=== PATIENT | male | born 1955 | race Caucasian/White ===

== ENCOUNTER → 2017-04-09 10:16 | Outpatient (CLI) | payer OTHER, SELFPAY ==
[2017-04-09 11:15] LABS: Absolute Neutrophil Count 5.8 X10^3/uL (2.0-7.7); Basophil# 0.04 X10^3/uL; Basophil% 0.5 % (0-1); Eosinophils% 3.6 % (0-5); Hematocrit 46.4 % (40-54); Hemoglobin 15.5 g/dl (13.0-16.5); Lymphocyte % 19.2 % (19-41); Mean Corp Hgb Conc 33.4 g/gl (32-36); Mean Corpuscular Hgb 28.7 pg (27.0-32.0); Mean Corpuscular Volume 85.8 fL (80-94); Mean Platelet Vol. 11.9 fl (6.2-12.0); Monocyte# 0.63 X10^3/uL; Monocyte% 7.6 % (0-10); Neutrophil # 5.75 X10^3/uL (2.7-7.7); Platelet Count 221 K/mm3 (150-450); RBC Distribution Width CV 12.6 % (11.6-14.6); RBC Distribution Width SD 39.3 fl (35.1-43.9); Red Blood Count 5.41 M/mm3 (4.6-6.2); White Blood Count 8.3 K/mm3 (4.4-11.0)
[2017-04-09 11:20] LABS: POSITIVE COUNT NO; POSITIVE DIFFERENTIAL NO; POSITIVE MORPHOLOGY NO
[2017-04-09 11:44] LABS: Anion Gap 8 (5-15); BUN 18 mg/dL (7-18); BUN/Creat Ratio 18.1 RATIO (10-20); Chloride 102 mmol/L (98-107); EST Glomerular Filtration Rate 81 mL/min (>60); Est Glom Filt Rate - Afr Amer 98 mL/min (>60); Glucose 93 mg/dL (70-110); Magnesium 2.1 mg/dL (1.6-2.6); Phosphorus 3.7 mg/dL (2.5-4.9); Sodium Level 140 mmol/L (136-145); Thyroid Stim Hormone (TSH) 1.16 uIU/mL (0.358-3.74)
[2017-04-09 12:14] LABS: Microalbumin:Creatinine Ratio 129.1 mg/g CRE (<30 mg/g CRE)
[2017-04-11 09:46] LABS: PTHIN 35.2 pg/mL (18.4-80.1); Vitamin D,25 Hydroxy 23.8 ng/mL
== END ==
PROVIDERS: Family Provider Specialist; PCP Specialist; Visit Provider Specialist
DX: I10 Essential (primary) hypertension (principal); R80.9 Proteinuria, unspecified; M10.9 Gout, unspecified
CPT/HCPCS: 36415; 80048; 82043; 82306; 82570; 83735; 83970; 84100; 84443; 84550; 85025

== ENCOUNTER → 2017-10-28 08:32 | Outpatient (CLI) | payer OTHER, SELFPAY ==
[2017-10-28 09:40] LABS: Erythrocyte Sedimentation Rate 5 mm/hr (0-20)
[2017-10-28 10:16] LABS: ALB/GLOB Ratio 0.9 RATIO (0.9-2.4); AST(SGOT) 19 U/L (15-37); Alanine Aminotransfer ALT/SGPT 17 U/L (16-61); Albumin, Serum 3.5 g/dL (3.2-5.0); Alkaline Phosphatase 70 U/L (45-117); Anion Gap 8 (5-15); BUN 19 mg/dL (7-18); BUN/Creat Ratio 17.6 RATIO (10-20); CRP 7.29 mg/L (0.0-3.0); Calcium,Total 8.4 mg/dL (8.5-10.1); Chloride 104 mmol/L (98-107); Cholesterol 198 mg/dL (200); Creatinine, Serum 1.08 mg/dL (0.70-1.30); EST Glomerular Filtration Rate 74 mL/min (>60); Est Glom Filt Rate - Afr Amer 89 mL/min (>60); Globulin 3.7 g/dL (2.2-4.2); Glucose 89 mg/dL (74-106); High Density Lipoprotein 40 mg/dL; Potassium 3.7 mmol/L (3.5-5.1); Protein, Total 7.2 g/dL (6.4-8.2); Sodium Level 142 mmol/L (136-145); Triglycerides 165 mg/dL; Very Low Density Lipoprotein 33 mg/dL (5-40)
[2017-10-28 10:34] LABS: Microalbumin:Creatinine Ratio 129.3 mg/g CRE (<30 mg/g CRE)
== END ==
PROVIDERS: Family Provider Specialist; PCP Specialist; Visit Provider Specialist
DX: R80.9 Proteinuria, unspecified (principal); E55.9 Vitamin D deficiency, unspecified; I10 Essential (primary) hypertension; I70.90 Unspecified atherosclerosis; R79.82 Elevated C-reactive protein (CRP)
CPT/HCPCS: 36415; 80053; 80061; 82043; 82306; 82570; 85652; 86140

== ENCOUNTER → 2018-03-30 13:26 | Outpatient (CLI) | payer OTHER, SELFPAY ==
[2018-03-30 15:00] LABS: Anion Gap 6 (5-15); BUN 17 mg/dL (7-18); BUN/Creat Ratio 15.9 RATIO (10-20); Calcium,Total 8.7 mg/dL (8.5-10.1); Chloride 102 mmol/L (98-107); Creatinine, Serum 1.07 mg/dL (0.70-1.30); EST Glomerular Filtration Rate 74 mL/min (>60); Est Glom Filt Rate - Afr Amer 90 mL/min (>60); Glucose 86 mg/dL (74-106); Potassium 3.8 mmol/L (3.5-5.1); Sodium Level 139 mmol/L (136-145)
[2018-03-30 15:08] LABS: PTHIN 96.4 pg/mL (18.4-80.1)
--- OUTSIDE RECORDS SUMMARY | 2018-06-04 08:02 | XMS RPT_ITS ---
:1955 Author Organization [facility] Care Team Providers Name Role Phone JEFF SAINZ Attending Unavailable LASSALETTA, JEFF Referring Unavailable LASSALETTA, JEFF Primary Care Unavailable LARRYSALETTA, JEFF Attending Unavailable LASSALETTA, JEFF Referring Unavailable LASSALETTA, JEFF Primary Care Unavailable LASSALETTA, JEFF Attending Unavailable LASSALETTA, JEFF Referring Unavailable LASSALETTA, JEFF Primary Care Unavailable PROBLEMS PROBLEMS No Problem Records FoundPROCEDURES PROCEDURES No Procedure Records FoundRESULTS RESULTS KIDNEY AND BLADDER Observed: 03/30/2018 Status: F Source: [place] 2:06 PM REPOSITORY [facility] Imaging Services [address] [place] [id number] Kidney and Bladder MR#: [id number] Acct: [id number] Name: SEBASTIEN GLOVER Rep #: [id number] : 1955 M 62 From: Mulugeta Angela MD PCP: JEFF SAINZ Status: REG CLI Study: Kidney and Bladder Date of Exam: 03/30/18 Exam# [id number] Ordering Dr: Jeff Sainz STUDY: RENAL ULTRASOUND - COMPLETE REASON FOR EXAM: Male, 62 years old. Proteinuria TECHNIQUE: Ultrasound evaluation of the kidneys was performed with real-time and static rosario-scale imaging. COMPARISON: None. FINDINGS: RIGHT KIDNEY: Normal location of the right kidney, which is normal in size. The right kidney measures 11.3 x 5.8 x 5.4 cm. There is a normal cortex of the right kidney. The renal cortex measures 1.8 cm. There is no right renal mass or cyst. There are no right renal calculi. There is no right hydronephrosis. DISTAL RIGHT URETER: There is non-visualization of the distal right ureter. There is no demonstrated right ureterovesical junction calculus. There is a visualized right ureteral jet. LEFT KIDNEY: Normal location of the left kidney, which is normal in size. The left kidney measures 10.1 x 5.0 x 6.3 cm. There is a normal cortex of the left kidney. The renal cortex measures 2.3 cm. There is no left renal mass or cyst. There are no left renal calculi. There is no left hydronephrosis. DISTAL LEFT URETER: There is non-visualization of the distal left ureter. There is no demonstrated left ureterovesical junction calculus. There is a visualized left ureteral jet. BLADDER: The distended urinary bladder has a volume of 152 ml. There is a normal wall thickness of the distended urinary bladder. There is no demonstrated mass within the urinary bladder. There are no demonstrated bladder calculi. Enlarged prostate gland is seen. Greatest dimension approximately 5.2 cm. US/Kidney and Bladder IMPRESSION: Normal ultrasound of the kidneys and urinary bladder. Enlarged prostate gland. Electronically Signed: Mulugeta Angela MD at 16:28 EST , Service support , CC: JEFF SAINZ Linen Supervisor: Signed BASIC METABOLIC Collected: 03/30/2018 Status: F Source: [place] PROFILE (BMP) 1:58 PM REPOSITORY TYPE CODE TESTS RESULT OUT OF RANGE REFERENCE UNITS LAB L501.0100 74-106 mg/dL Normal GLU 86 Result Comment: Please note revised GLUCOSE reference range effective 2017. LAB L501.1000 7-18 mg/dL Normal BUN 17 LAB L501.1100 0.70-1.30 mg/dL Normal CREAT,SERUM 1.07 Result Comment: The validity of the calculated GFR AND GFRAA in patients over 70 years has not been determined. Clinical correlation is essential. LAB L501.1110 >60 mL/min Normal EST GFR 74 Result Comment: Non- GFR Calc LAB L501.1115 >60 mL/min Normal EST GFR - AA 90 Result Comment: GFR Calc LAB L501.1300 10-20 RATIO Normal BUN/CRE 15.9 LAB L501.2200 8.5-10.1 mg/dL CA Normal 8.7 LAB L501.5300 136-145 mmol/L NA Normal 139 LAB L501.5600 3.5-5.1 mmol/L K Normal 3.8 LAB L501.5900 98-107 mmol/L CL Normal 102 LAB L501.6100 21.0-32.0 mmol/L Normal CO2 31.0 LAB L501.6200 5-15 Normal GAP 6 Performed By: #### L500.2500 #### [facility] [address] [place], [address] PTHIN Collected: 03/30/2018 Status: F Source: [place] 1:58 PM REPOSITORY TYPE CODE TESTS RESULT OUT OF RANGE REFERENCE UNITS LAB L509.1000 18.4-80.1 pg/mL High PTHIN 96.4 Performed By: #### L509.1000 #### [facility] [address] [place], [address] CALCIUM IONIZED Collected: 03/30/2018 Status: F Source: [place] 1:58 PM REPOSITORY TYPE CODE TESTS RESULT OUT OF RANGE REFERENCE UNITS LAB L3100.9600 4.5-5.6 mg/dL Normal IONIZED CA 5.2 Result Comment: Performed at: [facility] [address] [id number] Materials Development Engineer: Darren Murphy PhD, Phone: [phone] Performed By: #### L3100.9600 #### [facility] (refer to report for specific site) refer to report for address and phone number ERYTHROCYTE SED RATE Collected: 10/28/2017 Status: F Source: [place] 8:35 AM REPOSITORY Order Comment: BARELY CAN READ THE ORDER TYPE CODE TESTS RESULT OUT OF RANGE REFERENCE UNITS LAB L102.0000 0-20 mm/hr Normal SED RATE 5 Performed By: #### L101.9900 #### [facility] [place], [address] COMPREHENSIVE METABOLIC Collected: 10/28/2017 Status: F Source: [place] [facility] 8:35 AM REPOSITORY Order Comment: BARELY CAN READ THE ORDER TYPE CODE TESTS RESULT OUT OF RANGE REFERENCE UNITS LAB L501.0100 74-106 mg/dL Normal GLU 89 Result Comment: Please note revised GLUCOSE reference range effective 2017. LAB L501.1000 7-18 mg/dL High BUN 19 LAB L501.1100 0.70-1.30 mg/dL Normal CREAT,SERUM 1.08 Result Comment: The validity of the calculated GFR AND GFRAA in patients over 70 years has not been determined. Clinical correlation is essential. LAB L501.1110 >60 mL/min Normal EST GFR 74 Result Comment: Non- GFR Calc LAB L501.1115 >60 mL/min Normal EST GFR - AA 89 Result Comment: GFR Calc LAB L501.1300 10-20 RATIO Normal BUN/CRE 17.6 LAB L501.1500 6.4-8.2 g/dL T Normal PROT 7.2 LAB L501.1800 3.2-5.0 g/dL Normal ALB 3.5 LAB L501.1950 2.2-4.2 g/dL Normal GLOB 3.7 LAB L501.2000 0.9-2.4 RATIO Normal A/G 0.9 LAB L501.2200 8.5-10.1 mg/dL Low CA 8.4 LAB L501.4100 15-37 U/L Normal AST 19 LAB L501.4305 45-117 U/L Normal ALK P 70 LAB L501.4405 16-61 U/L Normal ALT 17 LAB L501.4600 0.20-1.00 mg/dL T Normal BILI 0.40 LAB L501.5300 136-145 mmol/L NA Normal 142 LAB L501.5600 3.5-5.1 mmol/L K Normal 3.7 LAB L501.5900 98-107 mmol/L CL Normal 104 LAB L501.6100 21.0-32.0 mmol/L Normal CO2 30.0 LAB L501.6200 5-15 Normal GAP 8 Performed By: #### L500.4050, L500.4100, L501.6710 #### [facility] [address] [place], [place], [id number] LIPID PROFILE Collected: 10/28/2017 Status: F Source: [place] 8:35 AM REPOSITORY Order Comment: BARELY CAN READ THE ORDER TYPE CODE TESTS RESULT OUT OF RANGE REFERENCE UNITS LAB L501.4900 200 mg/dL Normal CHOL 198 Result Comment: <200 mg/dL Desirable 200-240 mg/dL Borderline >240 mg/dL High Risk LAB L501.5000 mg/dL Normal TRIG 165 Result Comment: The drugs N-Acetylcysteine and Metamizole may falsely depress this assay. Serum Triglycerides Reference Interval Normal <150 mg/dL Borderline high 150 - 199 mg/dL High 200 - 499 mg/dL Very High > or = 500 mg/dL LAB L501.6400 mg/dL Normal HDL 40 Result Comment: The drugs N-Acetylcysteine and Metamizole may falsely depress this assay. Reference Range HDL <40 mg/dL Low HDL Cholesterol HDL >or= 60 mg/dL High HDL Cholesterol LAB L501.6500 0-130 mg/dL Normal LDL 125 LAB L501.6600 5-40 mg/dL Normal VLDL 33 Performed By: #### L500.4050, L500.4100, L501.6710 #### [facility] [address] [place], [place], [address] CRP Collected: 10/28/2017 Status: F Source: [place] 8:35 AM REPOSITORY Order Comment: BARELY CAN READ THE ORDER TYPE CODE TESTS RESULT OUT OF RANGE REFERENCE UNITS LAB L501.6710 0.0-3.0 mg/L High 7.29 C-REACTIVE PROT Result Comment: C-Reactive Protein (CRP) provides useful information for the diagnosis, therapy and monitoring of inflammatory processes and associated diseases. For the evaluation of Relative Risk for Cardiovascular Disease, a High Sensitivity CRP (HSCRP) should be ordered. Performed By: #### L500.4050, L500.4100, L501.6710 #### [facility] [address] [place], [address] VITAMIN D,25 HYDROXY Collected: 10/28/2017 Status: F Source: [place] 8:35 AM REPOSITORY Order Comment: BARELY CAN READ THE ORDER TYPE CODE TESTS RESULT OUT OF RANGE REFERENCE UNITS LAB L506.1000 29.95-100.01 ng/mL Normal Vitamin D 33.0 25-OH Result Comment: Vitamin D 25(OH) Status Range Deficiency <20 ng/mL (50nmol/L) Insuffciency 20 - 30 ng/mL (50 - 75 nmol/L) Sufficiency 30 - 100 ng/mL (75 - 250 nmol/L) Toxicity >100 ng/mL (>250 nmol/L) Performed By: #### L506.1000 #### [facility] [address] [place], [address] MICROALB:CREAT Collected: 10/28/2017 Status: F Source: [place] RATIO,RANDOM UR 8:35 AM REPOSITORY Order Comment: BARELY CAN READ THE ORDER TYPE CODE TESTS RESULT OUT OF RANGE REFERENCE UNITS LAB L501.1200 NO RANGE EST. mg/dL Normal UR CREAT 205.00 LAB L502.0500 NO RANGE EST. mg/L Normal 265.0 MICROALBUMIN ,UR LAB L502.0600 <30 mg/g CRE mg/g CRE High 129.3 MALB:CREAT Performed By: #### L502.0250 #### [facility] [address] [place], [address] ALLERGIES ALLERGIES DATE TYPE / CODE NAME / CODE REACTION SEVERITY SOURCE 12/04/2016 Miscellaneous BLOOD PRESSURE Nausea Unknown [place] Allergy/[id number]([facility] Repository ENCOUNTERS ENCOUNTERS ADMIT/DISCHARGE ACCOUNT ADMITTING ENCOUNTER LOCATION SOURCE NUMBER CLASS 03/30/2018 [id number] [facility] ing:[place] Repository 03/30/2018 [id number] [facility] ing:LAB Repository 10/28/2017 [id number] Ambulatory [place] 8 [facility] ing:LAB Repository PAYERS PAYERS ENCOUNTER GUARANTOR PAYER SUBSCRIBER SOURCE 03/30/2018 SEBASTIEN [place] Primary SEBASTIEN G [place] Insurance:CARESOURCE COVEYDOB: [address] [address]Oug: (330) Number: Repository [phone] () [id number] Date:[id number] [address] [phone]: 03/30/2018 Secondary NOT GIVENUNK [place] Insurance:SELF PAY [facility] Number: Effective Repository Date:2018-03-30 03/30/2018 SEBASTIEN [place] Primary SEBASTIEN G [place] Insurance:[employer] COVEYDOB: [address] [address]Tdw: (330) Number: Repository [phone] () [id number] Date:[id number] [address] [id number]: 03/30/2018 Secondary NOT GIVENUNK [place] Insurance:SELF PAY [facility] Number: Effective Repository Date:2018-03-30 10/28/2017 SEBASTIEN DOT[place] Primary SEBASTIEN G [place] Insurance:[employer] COVEYDOB: [address] [address]Gyr: (330) Number: Repository [phone] () [id number] Date:[id number] [address] [phone]: 10/28/2017 Secondary NOT GIVENUNK [place] Insurance:SELF PAY [facility] Number: Effective Repository Date:2017-10-28
== END ==
PROVIDERS: Family Provider Specialist; PCP Specialist; Referring Provider Specialist; Visit Provider Specialist
DX: N18.9 Chronic kidney disease, unspecified (principal); R80.9 Proteinuria, unspecified
CPT/HCPCS: 36415; 80048; 82330; 83970

== ENCOUNTER → 2018-03-30 14:03 | Outpatient (CLI) | payer OTHER, SELFPAY ==
[2016-12-04 09:39] VITALS: BMI 25.3
--- NOTE | 2018-03-30 14:06 | US_ITS ---
STUDY: RENAL ULTRASOUND - COMPLETE REASON FOR EXAM: Male, 62 years old. Proteinuria TECHNIQUE: Ultrasound evaluation of the kidneys was performed with real-time and static rosario-scale imaging. COMPARISON: None. FINDINGS: RIGHT KIDNEY: Normal location of the right kidney, which is normal in size. The right kidney measures 11.3 x 5.8 x 5.4 cm. There is a normal cortex of the right kidney. The renal cortex measures 1.8 cm. There is no right renal mass or cyst. There are no right renal calculi. There is no right hydronephrosis. DISTAL RIGHT URETER: There is non-visualization of the distal right ureter. There is no demonstrated right ureterovesical junction calculus. There is a visualized right ureteral jet. LEFT KIDNEY: Normal location of the left kidney, which is normal in size. The left kidney measures 10.1 x 5.0 x 6.3 cm. There is a normal cortex of the left kidney. The renal cortex measures 2.3 cm. There is no left renal mass or cyst. There are no left renal calculi. There is no left hydronephrosis. DISTAL LEFT URETER: There is non-visualization of the distal left ureter. There is no demonstrated left ureterovesical junction calculus. There is a visualized left ureteral jet. BLADDER: The distended urinary bladder has a volume of 152 ml. There is a normal wall thickness of the distended urinary bladder. There is no demonstrated mass within the urinary bladder. There are no demonstrated bladder calculi. Enlarged prostate gland is seen. Greatest dimension approximately 5.2 cm. US/Kidney and Bladder IMPRESSION: Normal ultrasound of the kidneys and urinary bladder. Enlarged prostate gland. Electronically Signed: Mulugeta Angela MD at 16:28 EST , Service support ,
--- OUTSIDE RECORDS SUMMARY | 2018-06-04 09:01 | XMS RPT_ITS ---
[...] AND BLADDER Observed: 03/30/2018 Status: F Source: [place] 2:06 PM [facility] REPOSITORY [facility] Imaging Services [address] [place] [id number] Kidney and Bladder MR#: [id number] Acct: [id number] Name: SEBASTIEN GLOVER Rep #: [id number] : 1955 M 62 From: Mulugeta Angela MD PCP: JEFF SAINZ Status: REG CLI Study: Kidney and Bladder Date of Exam: 03/30/18 Exam# [id number] Ordering Dr: Jeff Sainz STUDY: RENAL ULTRASOUND [...] , Service support , CC: JEFF SAINZ Air Hammer Operator: Signed BASIC METABOLIC Collected: 03/30/2018 Status: F Source: [place] PROFILE (BMP) 1:58 PM [facility] REPOSITORY TYPE CODE TESTS RESULT OUT OF [...] GAP 6 Performed By: #### L500.2500 #### [facility] [address] [place], [address] PTHIN Collected: 03/30/2018 Status: F Source: [place] 1:58 PM [facility] REPOSITORY TYPE CODE TESTS RESULT OUT OF RANGE REFERENCE UNITS LAB L509.1000 18.4-80.1 pg/mL High PTHIN 96.4 Performed By: #### L509.1000 #### [facility] [address] [place], [address] CALCIUM IONIZED Collected: 03/30/2018 Status: F Source: [place] 1:58 PM [facility] REPOSITORY TYPE CODE TESTS RESULT OUT OF RANGE REFERENCE UNITS LAB L3100.9600 4.5-5.6 mg/dL Normal IONIZED CA 5.2 Result Comment: Performed at: [facility] [id number] Strap Machine Operator Automatic: Darren Murphy PhD, Phone: [phone] Performed By: #### L3100.9600 #### [facility] (refer to report for specific site) refer to report for address and phone number ERYTHROCYTE SED RATE Collected: 10/28/2017 Status: F Source: [place] 8:35 AM [facility] REPOSITORY Order Comment: BARELY CAN READ THE ORDER TYPE CODE TESTS RESULT OUT OF RANGE REFERENCE UNITS LAB L102.0000 0-20 mm/hr Normal SED RATE 5 Performed By: #### L101.9900 #### [facility] [place], [address] COMPREHENSIVE METABOLIC Collected: 10/28/2017 Status: F Source: [place] [facility] 8:35 AM [facility] REPOSITORY Order Comment: BARELY CAN READ THE [...] Performed By: #### L500.4050, L500.4100, L501.6710 #### [facility] [address] [place], [place], [id number] LIPID PROFILE Collected: 10/28/2017 Status: F Source: [place] 8:35 AM [facility] REPOSITORY Order Comment: BARELY CAN READ THE [...] Performed By: #### L500.4050, L500.4100, L501.6710 #### [facility] [address] [place], [place], [address] CRP Collected: 10/28/2017 Status: F Source: [place] 8:35 AM [facility] REPOSITORY Order Comment: BARELY CAN READ THE [...] Performed By: #### L500.4050, L500.4100, L501.6710 #### [facility] [address] [place], [address] VITAMIN D,25 HYDROXY Collected: 10/28/2017 Status: F Source: [place] 8:35 AM [facility] REPOSITORY Order Comment: BARELY CAN READ THE [...] (>250 nmol/L) Performed By: #### L506.1000 #### [facility] [address] [place], [address] MICROALB:CREAT Collected: 10/28/2017 Status: F Source: [place] RATIO,RANDOM UR 8:35 AM [facility] REPOSITORY Order Comment: BARELY CAN READ THE ORDER TYPE CODE TESTS RESULT OUT OF RANGE REFERENCE UNITS LAB L501.1200 NO RANGE EST. mg/dL Normal UR CREAT 205.00 LAB L502.0500 NO RANGE EST. mg/L Normal 265.0 MICROALBUMIN ,UR LAB L502.0600 <30 mg/g CRE mg/g CRE High 129.3 MALB:CREAT Performed By: #### L502.0250 #### [facility] [address] [place], [address] ALLERGIES ALLERGIES DATE TYPE / CODE NAME / CODE REACTION SEVERITY SOURCE 12/04/2016 Miscellaneous BLOOD PRESSURE Nausea Unknown [place] Allergy/[id number]([facility] Repository ENCOUNTERS ENCOUNTERS ADMIT/DISCHARGE ACCOUNT ADMITTING ENCOUNTER LOCATION SOURCE NUMBER CLASS 03/30/2018 [id number] [facility] ing:US Repository 03/30/2018 [id number] [facility] ing:LAB Repository 10/28/2017 [id number] Ambulatory [place] 8 [facility] ing:LAB Repository PAYERS PAYERS ENCOUNTER GUARANTOR PAYER SUBSCRIBER SOURCE 03/30/2018 SEBASTIEN DOTSON Primary SEBASTIEN G [place] Insurance:CARESOURCE COVEYDOB: [address] [address]Evb: (330) Number: Repository [phone] () [id number] Date:[id number] [address] [address]VV: 03/30/2018 Secondary NOT GIVENUNK [place] Insurance:SELF PAY [facility] Number: Effective Repository Date:2018-03-30 03/30/2018 SEBASTIEN DOTSON Primary SEBASTIEN G [place] Insurance:CAR[employer]OURCE COVEYDOB: [address] [address]Gyj: (330) Number: Repository [phone] () [id number] Date:[id number] [address] [address]ZY: 03/30/2018 Secondary NOT GIVENUNK [place] Insurance:SELF PAY [facility] Number: Effective Repository Date:2018-03-30 10/28/2017 SEBASTIEN DOTSON Primary SEBASTIEN G [place] Insurance:CAR[employer]OURCE COVEYDOB: [address] [address]Ivg: (330) Number: Repository [phone] () [id number] Date:2904-10-[address]ZX [address] [address]UP: 10/28/2017 Secondary NOT GIVENUNK [place] Insurance:SELF PAY [facility] Number: Effective Repository Date:2017-10-28
== END ==
PROVIDERS: Family Provider Specialist; PCP Specialist; Referring Provider Specialist; Visit Provider Specialist
DX: R80.9 Proteinuria, unspecified (principal)
CPT/HCPCS: 76770

== ENCOUNTER 2018-04-14 20:03 | Emergency (ER) | payer OTHER, SELFPAY ==
[2018-04-14 20:04] VITALS: BP 160/106; PULSE 90; RESP 20; TEMP 36.1; O2SAT 94; BMI 28.8
--- NOTE | 2018-04-14 20:32 | EKG12_ITS ---
Test Reason : SHORTNESS OF BREATH Blood Pressure : / mmHG Vent. Rate : 073 BPM Atrial Rate : 073 BPM P-R Int : 158 ms QRS Dur : 090 ms QT Int : 372 ms P-R-T Axes : 089 090 106 degrees QTc Int : 409 ms Normal sinus rhythm Rightward axis Nonspecific ST abnormality Abnormal ECG Confirmed by ERA MIRANDA, TANA ([id number]), restaurant expeditor ALICE DIANE ([id number]) on 04/19/2018 1:28:14 PM Referred By: Paula Sainz Confirmed By:TANA GIRARD MD
[2018-04-14] MEDS: Ipratropium/Albuterol Sulfate 3 ML AMPUL.NEB INHALATION (20:49)
[2018-04-14 20:51] VITALS: PULSE 89; RESP 24
[2018-04-14 20:51] LABS: Absolute Lymphocyte Count 2.68 X10^3/ul (0.83-4.51); Absolute Neutrophil Count 4.6 X10^3/uL (2.0-7.7); Basophil# 0.03 X10^3/uL; Basophil% 0.4 % (0-1); Eosinophils% 4.7 % (0-5); Hematocrit 49.6 % (40-54); Hemoglobin 16.2 g/dl (13.0-16.5); Lymphocyte # 2.68 X10^3/ul (4.0); Lymphocyte % 31.3 % (19-41); Mean Corp Hgb Conc 32.7 g/gl (32-36); Mean Corpuscular Hgb 28.5 pg (27.0-32.0); Mean Corpuscular Volume 87.2 fL (80-94); Mean Platelet Vol. 10.9 fl (6.2-12.0); Monocyte# 0.79 X10^3/uL; Monocyte% 9.2 % (0-10); Neutrophil # 4.63 X10^3/uL (2.7-7.7); Platelet Count 160 K/mm3 (150-450); RBC Distribution Width CV 13.3 % (11.6-14.6); RBC Distribution Width SD 42.1 fl (35.1-43.9); Red Blood Count 5.69 M/mm3 (4.6-6.2); White Blood Count 8.6 K/mm3 (4.4-11.0)
[2018-04-14 20:52] LABS: POSITIVE COUNT NO; POSITIVE DIFFERENTIAL NO; POSITIVE MORPHOLOGY NO
[2018-04-14] MEDS: MethylPREDNISolone 125 MG/2 ML Vial 60 MG IV (20:56)
[2018-04-14] MEDS: Azithromycin 250 MG Tablet 500 MG PO (20:56)
[2018-04-14 20:57] VITALS: BP 141/104; PULSE 86; RESP 14; O2SAT 91; O2SAT 96
[2018-04-14 21:09] LABS: Anion Gap 8 (5-15); BUN 23 mg/dL (7-18); BUN/Creat Ratio 19.8 RATIO (10-20); Calcium,Total 8.7 mg/dL (8.5-10.1); Chloride 100 mmol/L (98-107); Creatinine, Serum 1.16 mg/dL (0.70-1.30); EST Glomerular Filtration Rate 68 mL/min (>60); Est Glom Filt Rate - Afr Amer 82 mL/min (>60); Estimated Creatinine Clearance 66.03 ml/min; Glucose 77 mg/dL (74-106); Potassium 3.5 mmol/L (3.5-5.1); Sodium Level 138 mmol/L (136-145)
--- NOTE | 2018-04-14 21:15 | RAD_ITS ---
STUDY: X-RAY CHEST REASON FOR EXAM: Male, 62 years old. Short of breath TECHNIQUE: PA and lateral COMPARISON: December 04, 2016. FINDINGS: Lungs are hyperinflated and there is asymmetric interstitial thickening in the right lower lobe.. There is a calcified granuloma in the right upper lobe There is no demonstrated pleural abnormality. Normal size heart. Normal mediastinum and clementine. Normal visualized pulmonary arteries. Mildly calcified aortic arch and descending thoracic aorta. Dorsal spine demonstrates mild scoliosis and degenerative change. Normal visualized ribs, clavicles, and shoulders. There is no demonstrated abnormality of the visualized soft tissue structures of the upper abdomen. No significant change since prior exam RAD/Chest PA and Lateral IMPRESSION: COPD and old granulomatous disease. Electronically Signed: Jose Begum MD at 22:36 EST , Service support ,
[2018-04-14 21:52] VITALS: BP 132/93; PULSE 83; RESP 16; O2SAT 91
--- NOTE | 2018-04-14 22:53 | ED.VISSUMM ---
- ER Visit Summary Date of Service: 04/14/18 Chief Complaint: Cough History of Present Illness: The patient is a 62 M mild productive cough for 2 weeks. Phlegm in nature. No fever, chills, sweats. No myalgias. Denies sick contacts. He restrictive other reports due to coughing episode had a syncopal episode. No vomiting or diarrhea. Tobacco history. Wheezing. Does have nebulizers at home. No history of diabetes. Physical Examination: General: Alert and oriented ?3, no acute distress HEENT: Normocephalic, atraumatic. Moist mucosa membranes Neck: supple, nontender. Cardiovascular: Regular rate and rhythm, no murmurs Respiratory: Mild expiratory wheezing, symmetric, no distress Abdomen: Soft, nontender, nondistended Extremities: Nontender, no edema, pulses intact ?4 Neuro: no focal neurological deficits. Test Results: EKG sinus rate of [address] or T wave change. QTc 409. Chest x-ray negative. Hemoglobin 16.2 potassium 3.5 creatinine 1.16. Emergency Department Course and Treatment: Patient vitals stable pulse ox 94 on room air on arrival. He is nontoxic. Do syncopal episode likely posttussive. EKG obtained normal. Labs stable. Chest x-ray negative. Skin aerosol treatment started on Solu-Medrol and Zithromax. He was ambulated by myself with no worsening symptoms. Wheezing was improving on reexamination. With COPD exacerbation treated with antibiotics steroids in accordance to golds criteria. Follow-up as an outpatient. Signs and symptoms discussed to return. Treatment Plan: [] Disposition: Discharge Impression: 1. COPD exacerbation 2. Syncope This note was generated with [employer] dictation software. It may contain incorrect words, spelling, and punctuation that were not noted in review of the chart prior to signing ED Disposition - Plan for ED Patient: Disposition: Home or Assisted Living Diagnosis: COPD exacerbation, Syncope Instructions: ED COPD Flare, ED Syncope Vasovagal Prescriptions: Azithromycin [Zithromax] 250 mg PO DAILY #4 tablet Prednisone [Deltasone] 60 mg PO DAILY #12 tablet Referrals: Paula Sainz [Primary Care Provider] - 3-5 Days
[2018-04-14 23:09] VITALS: BP 129/84; PULSE 80; RESP 20; O2SAT 93
== END 2018-04-14 23:09 | disposition home or self-care (01) ==
PROVIDERS: Emergency Provider Emergency Medicine; Family Provider Specialist; PCP Specialist
DX: J44.1 Chronic obstructive pulmonary disease with (acute) exacerbation (principal); R55 Syncope and collapse; I10 Essential (primary) hypertension; Z72.0 Tobacco use
CPT/HCPCS: 71046; 80048; 85025; 93005; 94640; 96374; 99285; A4216

== ENCOUNTER → 2018-05-12 15:48 | Outpatient (CLI) | payer OTHER, SELFPAY ==
[2018-04-14 20:04] VITALS: BMI 28.8
--- NOTE | 2018-05-12 16:00 | CT_ITS ---
STUDY: CT CHEST WITH CONTRAST REASON FOR EXAM: Male, 62 years old. Tobacco abuse, COPD, hypertension RADIATION DOSAGE (If Supplied By Facility): CTDIvol = ( 12.355 ) mGy, DLP = ( 471.34 ) mGycm TECHNIQUE: Transaxial imaging was performed following intravenous administration of 100 mL Isovue-300. Multiplanar coronal and sagittal images were reformatted. Individualized dose optimization techniques were used for this CT. COMPARISON: CT from 05/16/2015 FINDINGS: Moderate centrilobular emphysema predominantly in the upper mid lung zones. In the superior segment of the right lower lobe, there is a 1.2 x 1.7 cm mildly spiculated soft tissue nodule that is new since the prior study. There is posterior retraction of the major fissure (mild). There is also an oval-shaped noncalcified nodule in the posterior left lower lobe on image 68 measuring 6 x 8 mm, also new since the prior study. Anterior and superior to this nodule, there is a 5 x 6 mm noncalcified nodule on image 66. In the lateral right upper lobe, there is an elongated noncalcified nodule measuring 0.6 x 1.2 cm on axial image 40, also new since the prior study. Small focal area of centrilobular micronodules in the lateral segment of the right middle lobe evident on image 95, new There is no demonstrated pleural abnormality. Normal heart and pericardium. There are calcifications of the coronary arteries. There are multiple small lymph nodes within the mediastinum, which are normal in size and morphology most compatible with reactive lymph hyperplasia. No dominant beth mass. Normal enhanced pulmonary arteries. Normal aorta arch and descending thoracic aorta. There are multi-level degenerative changes of the thoracic spine. Diminished density of the liver compatible with hepatic steatosis. There is asymmetric thickening of the left adrenal gland, stable. CT/Chest WITH Contrast IMPRESSION: 1. Since 05/16/2015, unfavorable change. New bilateral lower lobe and right upper lobe noncalcified pulmonary nodules, as above. The superior segment right lower lobe nodule is the largest and most suspicious. Additional violation with PET scan is recommended. 2. Moderate centrilobular emphysema. 3. Asymmetric left adrenal gland hyperplasia. 4. Hepatic steatosis. 5. Focal tree-in-bud micronodular densities in the right middle lobe are typically infectious/bronchiolitis. Electronically Signed: Marty Ny MD at 11:44 EST , Service support ,
== END ==
PROVIDERS: Family Provider Specialist; PCP Specialist; Referring Provider Specialist; Visit Provider Specialist
DX: Z87.09 Personal history of other diseases of the respiratory system (principal); F17.210 Nicotine dependence, cigarettes, uncomplicated
CPT/HCPCS: 71260; Q9967

== ENCOUNTER → 2018-07-17 13:10 | Outpatient (CLI) | payer OTHER, SELFPAY ==
--- NOTE | 2018-07-17 13:15 | CT_ITS ---
STUDY: CT CHEST/THORAX WITHOUT CONTRAST REASON FOR EXAM: Male, 62 years old. Lung nodule follow-up. 2 pack per day smoking history as well as COPD and hypertension. RADIATION DOSAGE (If Supplied By Facility): CTDIvol = ( 11.63 ) mGy, DLP = ( 493.90 ) mGycm TECHNIQUE: Transaxial imaging was performed without the administration of intravenous contrast material. Multiplanar coronal and sagittal images were reformatted. Individualized dose optimization techniques were used for this CT. COMPARISON: CT chest with IV contrast May 12, 2018 FINDINGS: There is hyperinflation of the lungs consistent with chronic obstructive lung disease (COPD). There are stable emphysematous changes of the lungs with emphysematous blebs. Stable spiculated, elongated 1.5 x 0.7 x 0.75 cm focus in the lateral right upper lobe, likely a site of scarring. There is been interval clearing of the 1.7 cm spiculated soft tissue density in the superior segment of the right lower lobe, with some minor residual curvilinear stranding/scarring. Stable 11 x 6 x 6 mm nodule in the posterior periphery of the left lower lobe on series 4 image 66, series 602 image to 39 (differences in measurement from prior study represent interobserver variability). A second nearby 5 mm nodule (series 4 image 65) is unchanged. Centrilobular micronodules in the lateral right middle lobe have predominantly cleared since previous study. Minor subsegmental atelectasis/scarring in the anteromedial margins of the lung bases is unchanged. There is no demonstrated pleural abnormality. Normal heart and pericardium. There are calcifications of the coronary arteries. Normal mediastinum. Normal hilar regions. Normal unenhanced pulmonary arteries. There is stable atherosclerotic calcification of the aortic arch, proximal brachiocephalic arteries, and distal descending thoracic aorta. There are stable multi-level degenerative changes of the thoracic spine. Stable dominant 2.25 x 1.2 x 1.0 cm left axillary lymph node (series 6 and image 125, series 2 image 24). There is stable fullness/thickening of the left adrenal gland CT/Chest without Contrast IMPRESSION: 1. COPD with emphysematous changes again noted. No new infiltrate. 2. Interval clearing of the 1.7 cm spiculated soft tissue density in the superior segment of the right lower lobe with minor residual curvilinear scarring. Centrilobular micronodules in the lateral right middle lobe also have generally cleared. 3. Stable spiculated, elongated density of probable scarring in the lateral right upper lobe as well as stable nodular densities of probable additional scarring in the posterior left lower lobe. 4. Stable fullness/thickening of the left adrenal gland. 5. Atherosclerotic vascular calcifications again noted. Electronically Signed: Kota Campbell MD at 14:28 EDT , Service support ,
== END ==
PROVIDERS: Family Provider Specialist; PCP Specialist; Referring Provider Internal Medicine Pulmonary Disease; Visit Provider Internal Medicine Pulmonary Disease
DX: R91.1 Solitary pulmonary nodule (principal)
CPT/HCPCS: 71250

== ENCOUNTER → 2018-10-03 10:18 | Outpatient (CLI) | payer OTHER, SELFPAY ==
[2018-10-03 11:03] LABS: Absolute Lymphocyte Count 2.33 X10^3/uL (0.83-4.51); Absolute Neutrophil Count 6.4 X10^3/uL (2.0-7.7); Basophil# 0.06 X10^3/uL; Basophil% 0.6 % (0-1); Eosinophil# 0.33 X10^3/uL; Eosinophils% 3.4 % (0-5); Hematocrit 52.4 % (40-54); Hemoglobin 17.3 g/dL (13.0-16.5); Lymphocyte # 2.33 X10^3/ul (4.0); Lymphocyte % 24.1 % (19-41); Mean Corpuscular Volume 84.8 fL (80-94); Monocyte# 0.56 X10^3/uL; Monocyte% 5.8 % (0-10); NRBC Flagged by Analyzer 0 % (0-5); Neutrophil # 6.36 X10^3/uL (2.7-7.7); Neutrophil % 65.8 % (47-70); Platelet Count 210 K/mm3 (150-450); RBC Distribution Width CV 12.7 % (11.6-14.6); RBC Distribution Width SD 38.9 fl (35.1-43.9); Red Blood Count 6.18 M/mm3 (4.6-6.2); White Blood Count 9.7 K/mm3 (4.4-11.0)
[2018-10-03 11:13] LABS: Erythrocyte Sedimentation Rate 10 mm/hr (0-20)
[2018-10-03 11:17] LABS: AST(SGOT) 17 U/L (15-37); Alanine Aminotransfer ALT/SGPT 18 U/L (16-61); Albumin, Serum 3.6 g/dL (3.2-5.0); Alkaline Phosphatase 79 U/L (45-117); Anion Gap 7 (5-15); BUN 21 mg/dL (7-18); BUN/Creat Ratio 18.3 RATIO (10-20); Chloride 102 mmol/L (98-107); Cholesterol 189 mg/dL (200); Creatinine, Serum 1.15 mg/dL (0.70-1.30); EST Glomerular Filtration Rate 68 mL/min (>60); Est Glom Filt Rate - Afr Amer 83 mL/min (>60); Globulin 3.5 g/dL (2.2-4.2); Glucose 95 mg/dL (74-106); High Density Lipoprotein 39 mg/dL; Magnesium 2.1 mg/dL (1.6-2.6); Microalbumin:Creatinine Ratio 196.1 mg/g CRE (<30 mg/g CRE); Phosphorus 3.6 mg/dL (2.5-4.9); Potassium 3.6 mmol/L (3.5-5.1); Protein, Total 7.1 g/dL (6.4-8.2); Sodium Level 140 mmol/L (136-145); Triglycerides 164 mg/dL; Very Low Density Lipoprotein 33 mg/dL (5-40)
[2018-10-03 12:00] LABS: Hepatitis B Surface Antibody Non-Reactive; Hepatitis C Antibody Non-Reactive (Nonreactive); Vitamin D,25 Hydroxy 44.6 ng/mL (29.95-100.01)
== END ==
PROVIDERS: Family Provider Specialist; PCP Specialist; Referring Provider Specialist; Visit Provider Specialist
DX: I10 Essential (primary) hypertension (principal); E55.9 Vitamin D deficiency, unspecified; E78.5 Hyperlipidemia, unspecified; E87.6 Hypokalemia; N28.9 Disorder of kidney and ureter, unspecified; R74.8 Abnormal levels of other serum enzymes
CPT/HCPCS: 36415; 80053; 80061; 82043; 82306; 82330; 82570; 83735; 84100; 85025; 85652; 86140; 86706; 86803

== ENCOUNTER → 2019-01-15 13:07 | Outpatient (CLI) | payer OTHER, SELFPAY ==
--- NOTE | 2019-01-15 13:12 | CT_ITS ---
STUDY: CT CHEST WITHOUT CONTRAST REASON FOR EXAM: Male, 63 years old. Lung nodule RADIATION DOSAGE (If Supplied By Facility): CTDIvol = ( 11.45 ) mGy, DLP = ( 449.16 ) mGycm TECHNIQUE: Transaxial imaging was performed without the administration of intravenous contrast material. Multiplanar coronal and sagittal images were reformatted. Individualized dose optimization techniques were used for this CT. COMPARISON: May 16, 2015, July 17, 2018 CT scan chest FINDINGS: In the right upper lobe there is a spiculated nodule that measures 7.4 x 1.2 x 0.6 mm. This is associated with an adjacent area of minor fibrotic change and/or reaction. When compared to prior study July 17, 2018 this nodule measured approximately the same level measured approximately 0.6 x 1.1 x 0.5 cm. This was not seen on the prior screening CT May 16, 2015. There are persistent superior segment left lower lobe nodules which are stable when compared to the prior study. One measuring 9 x 4.7 mm the other measuring approximately 3 x 3 mm. There is emphysematous change throughout the lungs. There is no demonstrated pleural abnormality. The heart is within normal limits of size. There is a cardiac stent. There are nonspecific subcentimeter mediastinal lymph nodes. The right hilar lymph node image #61 measures 1.3 cm stable since prior study. Normal unenhanced pulmonary arteries. The aorta is tortuous and partially calcified. The ascending thoracic aorta measures 2.3 cm. There are multi-level degenerative changes of the thoracic spine. There is a thickened appearance of the left adrenal gland which is partially visualized on the May 16, 2015 study suggesting probable adrenal hyperplasia and/or adenoma measuring up to 1.[address]/Chest without Contrast IMPRESSION: Slight interval 1 mm enlargement of a spiculated nodule in the right upper lobe suspicious for neoplasm. Recommend further evaluation with short interval follow-up, PET scan. Stable well-circumscribed nodular densities in the left lower lobe which may represent sequelae of granulomatous disease. Coronary artery disease Left stable adrenal hyperplasia and/or adenoma. Pulmonary emphysema chronic obstructive pulmonary disease. Electronically Signed: Aline Lugo MD at 13:42 EST Tel , Service support ,
== END ==
PROVIDERS: Family Provider Specialist; PCP Specialist; Referring Provider Internal Medicine Pulmonary Disease; Visit Provider Internal Medicine Pulmonary Disease
DX: R91.1 Solitary pulmonary nodule (principal)
CPT/HCPCS: 71250

== ENCOUNTER → 2019-03-06 10:43 | Outpatient (CLI) | payer OTHER, SELFPAY ==
[2019-03-06 11:28] LABS: Microalbumin,Random Urine 90.7 mg/L (NO RANGE EST.); Microalbumin:Creatinine Ratio 127.9 mg/g CRE (<30 mg/g CRE)
[2019-03-06 11:38] LABS: Color, Urine Yellow (Yellow); Glucose, Dipstick Normal (Normal); Ketone-Dipstick Negative (Negative); Leukocyte Esterase-Dipstick Negative /ul (Negative); Nitrite-Dipstick Negative (Negative); Occult Blood-Urine Negative /ul (Negative); Protein-Dipstick 15 mg/dl (Negative); Specific Gravity, Urine 1.015 (1.002-1.030); Urine Bilirubin Dipstick Negative (Negative); Urine Clarity Clear (Clear); Urine Urobilinogen Normal (Normal)
[2019-03-06 11:42] LABS: AST(SGOT) 20 U/L (15-37); Alanine Aminotransfer ALT/SGPT 17 U/L (16-61); Albumin, Serum 3.7 g/dL (3.2-5.0); Alkaline Phosphatase 91 U/L (45-117); Anion Gap 4 (5-15); BUN 21 mg/dL (7-18); BUN/Creat Ratio 14.6 RATIO (10-20); CRP 8.95 mg/L (0.0-3.0); Calcium,Total 9.1 mg/dL (8.5-10.1); Chloride 106 mmol/L (98-107); Cholesterol 172 mg/dL (200); Creatinine, Serum 1.44 mg/dL (0.70-1.30); EST Glomerular Filtration Rate 53 mL/min (>60); Est Glom Filt Rate - Afr Amer 64 mL/min (>60); Globulin 3.6 g/dL (2.2-4.2); Glucose 96 mg/dL (74-106); High Density Lipoprotein 37 mg/dL; Magnesium 2.2 mg/dL (1.6-2.6); Potassium 3.8 mmol/L (3.5-5.1); Protein, Total 7.3 g/dL (6.4-8.2); Sodium Level 141 mmol/L (136-145); Triglycerides 344 mg/dL; Very Low Density Lipoprotein 69 mg/dL (5-40)
[2019-03-06 13:45] LABS: PTHIN 86.1 pg/mL (18.4-80.1)
[2019-03-06 13:46] LABS: Vitamin D,25 Hydroxy 41.5 ng/mL (29.95-100.01)
== END ==
PROVIDERS: Family Provider Specialist; PCP Specialist; Referring Provider Specialist; Visit Provider Specialist
DX: R79.82 Elevated C-reactive protein (CRP) (principal); I10 Essential (primary) hypertension; E78.5 Hyperlipidemia, unspecified; K76.0 Fatty (change of) liver, not elsewhere classified; E55.9 Vitamin D deficiency, unspecified
CPT/HCPCS: 36415; 80053; 80061; 81002; 82043; 82306; 82330; 82570; 83735; 83970; 86140

== ENCOUNTER → 2019-05-16 12:38 | Outpatient (CLI) | payer OTHER, SELFPAY ==
--- NOTE | 2019-05-16 12:42 | CT_ITS ---
STUDY: CT CHEST WITHOUT CONTRAST REASON FOR EXAM: Male, 63 years old. Follow-up of lung nodule. RADIATION DOSAGE (If Supplied By Facility): CTDIvol = ( 12.67 ) mGy, DLP = ( 550.90 ) mGycm TECHNIQUE: Transaxial imaging was performed without the administration of intravenous contrast material. Multiplanar coronal and sagittal images were reformatted. Individualized dose optimization techniques were used for this CT. COMPARISON: CT of the chest, January 15, 2019. FINDINGS: Diffuse emphysematous changes throughout the lungs. In the right upper lobe there is a linear density which may represents a scar. This is slightly decreased in size when compared to the prior study. This now measures 0.8 x 0.3 x 0.6 cm previously measuring 1.0 x 0.4 x 0.7 cm There are small nodular densities seen in the left lower lobe (image 72, series 4 which appear table in size from previous exam. There is no new mass or infiltrate. Normal heart and pericardium. Stable nonspecific subcentimeter mediastinal lymphadenopathy. Normal hilar regions. Normal unenhanced pulmonary arteries. There is atherosclerotic calcification of the aortic arch with tortuosity and elongation of the aortic arch and descending thoracic aorta. Stable mild degenerative changes on the thoracic spine. There is stable prominence of the left adrenal gland suggesting adenoma or hyperplasia. CT/Chest without Contrast IMPRESSION: 1. Decrease in size of the right upper lobe nodular density when compared to prior study. 2. The remainder of the findings are stable. Electronically Signed: Tino Sutton DO at 21:43 EST Tel [phone], Service support ,
== END ==
PROVIDERS: Family Provider Specialist; PCP Specialist; Referring Provider Internal Medicine Pulmonary Disease; Visit Provider Internal Medicine Pulmonary Disease
DX: R91.1 Solitary pulmonary nodule (principal)
CPT/HCPCS: 71250

== ENCOUNTER → 2019-09-04 | Outpatient (CLI) | payer OTHER, SELFPAY ==
[2019-09-04 12:30] LABS: Anion Gap 7 (5-15); BUN 17 mg/dL (7-18); BUN/Creat Ratio 13.7 RATIO (10-20); CRP 8.71 mg/L (0.0-3.0); Calcium,Total 9.1 mg/dL (8.5-10.1); Chloride 102 mmol/L (98-107); Cholesterol 142 mg/dL (200); Creatinine, Serum 1.24 mg/dL (0.70-1.30); EST Glomerular Filtration Rate 62 mL/min (>60); Est Glom Filt Rate - Afr Amer 76 mL/min (>60); Glucose 95 mg/dL (74-106); High Density Lipoprotein 38 mg/dL; Magnesium 2.2 mg/dL (1.6-2.6); PSA,Total- Diagnostic 1.71 ng/mL (0.0-4.0); Potassium 3.7 mmol/L (3.5-5.1); Sodium Level 138 mmol/L (136-145); Triglycerides 101 mg/dL; Very Low Density Lipoprotein 20 mg/dL (5-40)
== END | disposition home or self-care (01) ==
LOC: LAB 11:33
PROVIDERS: PCP Specialist; Referring Provider Specialist; Visit Provider Specialist
DX: E78.5 Hyperlipidemia, unspecified (principal); N28.9 Disorder of kidney and ureter, unspecified; R79.82 Elevated C-reactive protein (CRP)
CPT/HCPCS: 36415; 80048; 80061; 82330; 83735; 84153; 86140

== ENCOUNTER → 2019-11-16 | Outpatient (CLI) | payer OTHER, SELFPAY ==
--- NOTE | 2019-11-16 13:39 | CT_ITS ---
STUDY: CT CHEST WITHOUT CONTRAST REASON FOR EXAM: Male, 63 years old. LUNG NODULE, HX TOBACCO USE RADIATION DOSAGE (If Supplied By Facility): CTDIvol = ( 9.11 ) mGy, DLP = ( 336.81 ) mGycm TECHNIQUE: Transaxial imaging was performed without the administration of intravenous contrast material. Multiplanar coronal and sagittal images were reformatted. Individualized dose optimization techniques were used for this CT. COMPARISON: Comparison is made with prior study dated 05/16/2019 and 01/15/2019. FINDINGS: Small benign appearing bilateral axillary lymph nodes. These are unchanged. Hyperinflation. Diffuse emphysematous changes with bullous formation more prominent in the upper lobes. There is a new 4.6 mm noncalcified nodule in the left lower lobe as seen on axial image #74. Stable small nodular densities in the left lower lobe posteriorly as seen on axial image #60. There is no demonstrated pleural abnormality. There are calcifications of the coronary arteries. There are multiple small lymph nodes within the mediastinum, which are normal in size and morphology most compatible with reactive lymph hyperplasia. Normal hilar regions. Normal unenhanced pulmonary arteries. There is atherosclerotic calcification of the aortic arch . There are multi-level degenerative changes of the thoracic spine. Stable 1.4 cm x 1.5 cm hypodense nodule in the medial limb of the left atrial line suggestive of adenoma. CT/Chest without Contrast IMPRESSION: Stable examination except for a new 4.6 mm noncalcified nodule in the left lower lobe as seen on axial image #74. Six-month follow-up is recommended. Electronically Signed: Vicente Velasquez, at 14:45 EDT , Service support ,
== END | disposition home or self-care (01) ==
LOC: CT 13:38
PROVIDERS: PCP Specialist; Referring Provider Internal Medicine Pulmonary Disease; Visit Provider Internal Medicine Pulmonary Disease
DX: R91.1 Solitary pulmonary nodule (principal)
CPT/HCPCS: 71250

== ENCOUNTER → 2019-12-04 | Outpatient (CLI) | payer OTHER, SELFPAY ==
--- NOTE | 2019-12-04 16:30 | PET_ITS ---
EXAMINATION: FDG PET-CT INDICATIONS: A 63-year-old male with history of carcinoma of the lung presenting for restaging examination and evaluation of pulmonary nodularity. COMPARISON EXAMINATION: CT of the chest report dated 11/16/2019 INDEX LESION SIZE SUV INTERPRETATION Right upper posterior chest wall subcutaneous fat nodule 28.3-mm (frame 197) 2.6 Clinical examination is recommended TECHNIQUE: Following the intravenous administration of 13.4 mCi of F-18 deoxyglucose via the left antecubital fossa, multiplanar image acquisitions of the neck, chest, abdomen and pelvis to level of mid thigh, obtained at one hour post radiopharmaceutical administration contemporaneously interpreted with the current CT of the neck, chest, abdomen and pelvis, to level of mid thigh, dated 12/04/[address] of the chest report dated reveals: BLOOD GLUCOSE LEVEL:?? 93 mg/dl?HEIGHT:?69 inches?WEIGHT: 202 lbs. FINDINGS: 1. Focal increased glucose metabolism is identified in the right upper posterior chest wall associated with a soft tissue density-mass on review of CT of the chest dated 12/04/2019. The metabolic abnormality demonstrates central photopenia generating a calculated maximal standard uptake value of 2.6. The maximal axial diameter of the corresponding soft tissue density on review of CT of the chest dated 12/04/2019 is 28.3-mm (transverse). 2. Normal physiologic distribution of the radiopharmaceutical is apparent in the hepatic (2.3) and splenic parenchyma, both renal units, bladder and visualized intestinal tract. The visualized portion of the cerebral cortex, as well as cerebellar hemispheres demonstrate symmetric and preserved glucose metabolism. Prominent tracer concentration is observed in the anterior neck, laryngeal structures extending from the anterior commissure to involve the true-false vocal cords, vestibular folds without evidence of corresponding soft tissue consistent with physiologic tracer uptake. Diffuse radiopharmaceutical concentration is noted in all four quadrants of the abdomen and pelvis. Pertinent CT findings are as follows: CHEST: There is atherosclerotic calcification defined in the thoracic aorta without evidence of dilatation-aneurysm formation. Coronary arterial calcification is observed. Bilateral axillary soft tissue densities with fatty hilus are ametabolic. A non-calcified subcentimeter parenchymal density discerned in the left lower posterior lung in two separate nodular presentations demonstrate no evidence of increased tracer uptake. Centrilobular emphysematous changes are noted in the bilateral upper-mid lung zones. ABDOMEN AND PELVIS: There is atherosclerotic calcification defined in the abdominal aorta without evidence of dilatation-aneurysm formation. Pelvic arterial calcification is demonstrated. A fat containing left inguinal hernia is noted. Right and left inguinal soft tissue densities with fatty hilus are ametabolic. Colonic diverticulosis is encountered without evidence of diverticulitis. SKELETAL: Degenerative changes are noted in the cervical, thoracic and lumbar spine. There is diffuse demineralization identified throughout the axial skeletal structures. PET/PET/CT Tumor Base -Thigh Init IMPRESSION: 1. Increased radiopharmaceutical concentration noted in the right upper posterior chest wall localized to the subcutaneous fat warrants clinical examination secondary to the quantitative degree of uptake. 2. Anatomic stability may be ensured in the non-glucose avid left lower posterior tsro-kbu-lmohqthrb parenchymal densities with repeat CT of the thorax in 3-6 months. (Dan[place], Seminars in Thoracic and Cardiovascular Surgery 14:292, 2002). Electronic Signature Ramiro Noel D.O. Accurate Quantification of SUVs for this report are calculated using the exclusive [employer]. Electronically Signed: Ramiro Noel DO at 22:35 EDT Tel , Service support ,
== END | disposition home or self-care (01) ==
LOC: ONC 16:20
PROVIDERS: PCP Specialist; Referring Provider Internal Medicine Pulmonary Disease; Visit Provider Internal Medicine Pulmonary Disease
DX: R91.1 Solitary pulmonary nodule (principal)
CPT/HCPCS: 78815; A9552

== ENCOUNTER → 2019-12-05 15:30 | Outpatient (CLI) | payer OTHER, SELFPAY ==
[2019-12-05 16:25] LABS: Erythrocyte Sedimentation Rate 13 mm/hr (0-20)
[2019-12-05 16:49] LABS: Anion Gap 6 (5-15); BUN 33 mg/dL (7-18); BUN/Creat Ratio 24.6 RATIO (10-20); Calcium,Total 9.3 mg/dL (8.5-10.1); Chloride 102 mmol/L (98-107); Creatinine, Serum 1.34 mg/dL (0.70-1.30); EST Glomerular Filtration Rate 57 mL/min (>60); Est Glom Filt Rate - Afr Amer 69 mL/min (>60); Glucose 97 mg/dL (74-106); Sodium Level 137 mmol/L (136-145)
[2019-12-05 16:53] LABS: Vitamin D,25 Hydroxy 41.9 ng/mL
== END ==
PROVIDERS: PCP Specialist; Visit Provider Specialist
DX: R80.9 Proteinuria, unspecified (principal); I10 Essential (primary) hypertension; R79.82 Elevated C-reactive protein (CRP); E55.9 Vitamin D deficiency, unspecified
CPT/HCPCS: 36415; 80048; 82043; 82306; 85652; 86140

== ENCOUNTER 2020-01-01 09:40 | Day surgery (SDC) | payer OTHER, SELFPAY ==
[2019-12-17 13:07] VITALS: BMI 28.8
--- NOTE | 2020-01-01 | IMM_PTH ---
PATIENT: SEBASTIEN GLOVER LOC: [facility] [place] U#:[id number] AGE/SX: 64/M ROOM: RE01/01/[address]: Dr. Nader Washburn MD : 1955 BED: DIS: 01/01/2020 SPEC #: [id number] RECD: 01/03/20 12:08 STATUS: SADIE REQ #: [id number] TURNER: 01/01/20 00:[address]: Nader Washburn DEPT: IMMUNOHISTOCHEMISTRY RECD BY: Georgina Kimball ENTERED: 01/03/20 12:10 SP TYPE: IMMUNO OTHR DR: Dr. Paula Sainz MD Tissues: Back, NOS Procedures: BCL-2 (add) CK5-6 (add) CK8 (add) Vimentin (add) Pankeratin (initial) MELAN-A (add) P40 (add) S-100 (add) PHYSICIAN & INSTITUTION [place] [phone] SPECIMEN INFORMATION: Tissue Source: Lipoma mid right back Clinical Info: Lipoma mid right back Specimen Number: [id number] CPT code: 64450, 71078 x7 METHODOLOGY: Deparaffinized sections of prefer/formalin-fixed tissue or PAP/DQ stained slides are incubated with monoclonal/polyclonal antibodies/oligonucleotide probes. Localization is made via biotin free immunoperoxidase method. Appropriate controls are performed and reacted as expected. Results on target cell population are indicated in the following table: RESULTS: ANTIBODY / CLONE RESULT AE1-3 (AE1/AE3/PCK26) positive, focal, weak CK8 (40tiadW75) positive, focal, weak BCL-2 (bcl-2/100/D5) positive Vimentin (V9) negative Melan A (A103) negative S-100 (4C4.9) negative CK5-6 (D5 & 1684) positive P40 (BC28) positive These tests were developed and their performance characteristics determined by [facility]. They may not have been cleared or approved by the U.S. Food and Drug Administration. The FDA has determined that such clearance or approval is not necessary. The above immunohistochemical/dualISH markers are ordered and reviewed by the Pathologist. INTERPRETATION: Lipoma mid right back, excision: Nodular basal cell carcinoma. SJ:asim 01/04/20
[2020-01-01 10:18] VITALS: BP 130/90; PULSE 64; RESP 18; TEMP 36.6; O2SAT 95; BMI 28.7
[2020-01-01] MEDS: Lactated Ringers 1,000 ML 100 ML IV (10:40)
--- NOTE | 2020-01-01 11:00 | HP_ITS ---
Intake Vital Signs 12/17/19 Height 5 ft 9 in 12/17/19 Weight: 196 lb 12/17/19 BMI 28.9 12/17/19 BP 130/72 H 12/17/19 Blood Pressure Location Rt brachial 12/17/19 Position Sitting 12/17/19 Respiration 16 12/17/19 Pulse 76 12/17/19 Pulse Source Monitor 12/17/19 Pulse Oximetry (%) 94 12/17/19 Oxygen Delivery Method room air Intake Visit Reasons: Cyst right side mid back Chief Complaint: lipoma of back Machine Puller And Laster Required: No Is patient in pain?: No (tenderness to touch) Allergies BLOOD PRESSURE MED Adverse Reaction (Uncoded 12/17/19 13:17) Nausea Medications Amlodipine [Norvasc] 10 mg PO DAILY 04/14/18 [History Confirmed 12/17/19] Ascorbic Acid [Vitamin C] 500 mg PO DAILY 04/14/18 [History Confirmed 12/17/19] Aspirin [Aspirin, Baby] 81 mg PO DAILY@0800 04/14/18 [History Confirmed 12/17/19] Cholecalciferol (Vitamin D3) [Vitamin D3] 2,000 unit PO DAILY 04/14/18 [History Confirmed 12/17/19] Cyanocobalamin (Vitamin B-12) [Vitamin B-12] 1,000 mcg PO DAILY 04/14/18 [History Confirmed 12/17/19] Fluticasone/Salmeterol [Advair 500/50 Mcg Diskus] 1 puff INHALATION BID 04/14/18 [History Confirmed 12/17/19] Folic Acid 1 mg PO DAILY 04/14/18 [History Confirmed 12/17/19] Hydrochlorothiazide [Hctz] 25 mg PO DAILY 04/14/18 [History Confirmed 12/17/19] Potassium Chloride [K-Dur] 10 meq PO BID 04/14/18 [History Confirmed 12/17/19] Pyridoxine HCl [Vitamin B-6] 100 mg PO DAILY 04/14/18 [History Confirmed 12/17/19] Tiotropium [place] [Spiriva 18 MCG] 1 puff INHALATION DAILY 04/14/18 [History Confirmed 12/17/19] albuterol sulfate 0.63 mg/3 mL solution for nebulization 0.63 mg INHALATION ml 12/17/19 [History Confirmed 12/17/19] atorvastatin 10 mg tablet 10 mg PO DAILY tab 12/17/19 [History Confirmed 12/17/19] benazepril 10 mg tablet 40 mg PO DAILY tab 12/17/19 [History Confirmed 12/17/19] benazepril 20 mg tablet 20 mg PO DAILY tab 12/17/19 [History Confirmed 12/17/19] benazepril 40 mg tablet 40 mg PO tab 12/17/19 [History Confirmed 12/17/19] bupropion HCl 100 mg tablet 150 mg PO BID tab 12/17/19 [History Confirmed 12/17/19] famotidine 20 mg tablet 20 mg PO DAILY PRN tab 12/17/19 [History Confirmed 12/17/19] sertraline 50 mg tablet 75 mg PO DAILY tab 12/17/19 [History Confirmed 12/17/19] PFSH Medical History Mass of skin of back (Acute) Hypertension (Acute) COPD exacerbation (Chronic) COPD (chronic obstructive pulmonary disease) (Chronic) Surgical History Hx of hand surgery (Acute) Hx of left inguinal hernia repair (Acute) Family History Mother Dementia Alzheimer disease Hypertension Father Prostate cancer Social History (Updated 12/18/19 @ 08:[address] Nader Washburn MD) Smoking Status: Current every day smoker second hand exposure: Yes alcohol intake: never substance use type: does not use caffeine: Yes what type of physical activity do you participate in: none frequency: does not exercise HPI HPI Surgical H&P: Yes HPI: SEBASTIEN GLOVER, is a 63 M who presents to the office today for Painful lump on his right mid back area. Patient states that last year this was small and has gradually increased in size. It is painful when he lays on it recently had a PET CT scan which showed that this area on his back lit up significantly. He is clinically and the restaging process for potential lung carcinoma. Patient has a significant history of COPD and is a patient of Dr. Espino. ROS General General: No weight change, appetite, fatigue, colon cancer, breast cancer or weakness HEENT HEENT: No difficulty swallowing, eye injury, eye surgery, swollen glands or hoarseness Musc Musculoskeletal: Yes back problems; no arthritis, rheumatoid arthritis, gout or joint pain Neuro Neurologic: No weakness Exam Const General: no acute distress, well developed, well hydrated Orientation: oriented to person, oriented to place, oriented to time [facility] Head: normocephalic, atraumatic Ears: external ears normal Mouth: moist mucous membranes Eyes Sclera: sclerae normal Pupils: normal by confrontation Neck Neck: no lymphadenopathy noted Neck mass: No Thyroid: thyroid normal, symmetrical Chest Chest palpation & inspection: normal inspection of the chest Resp Effort & Inspection: normal respiratory effort Auscultation: clear to auscultation bilaterally Percussion: percussion normal Cardio Rate: regular rate Rhythm: regular rhythm GI Palpation: soft, no hepatosplenomegaly, no masses, nontender Rectal Exam: other Other: Rectal exam deferred. Skin Other: Right mid back there is a 3-1/2 cm raised firm lesion. It is movable and it feels soft but it is very atypical type of skin lesion. It does have vascular markings on the skin. It is not black and does not appear to be anything like a melanoma or basal cell skin cancer. There is no ulcerations to it. It does not feel firm like metastatic lesions would in the skin either. Extrem General: normal to inspection, no clubbing, cyanosis or edema Assessment & Plan Problems 1. Mass of skin of back R22.2 Plan My plan is to remove this in the OR under local MAC. He will need to have a rotational flap closure at that time. Risk benefits include bleeding infection possible nonhealing of wound which could require further surgical treatment and/or hyperbaric oxygen therapy. I do not think he is a good candidate for any general anesthetic and I do think that this is something that we can do under local MAC relatively easily. We reviewed the pre-operative plans with the patient. Risks and benefits of the procedure were fully explained, including but not limited to infection, neurovascular injury, continued pain, arthritis, stiffness, need for further surgery, re-injury, DVT, PE, general risks of anesthesia, and loss of the limb or life. The patient understands all the risks and does wish to proceed with written consent. Coding Level of Care Code Off vis,new,level 3 Diagnoses Mass of skin of back R22.2 COVID (Procedure Consent) Procedure Criteria Procedure Criteria: Yes Elective The surgeon/proceduralist and patient have discussed in detail the risk of exposure to and/or potential harm posed by the COVID-19 virus with having a surgery/procedure at this time versus the risk of? delaying the surgery/procedure. It is not possible to know either the risk of delaying the surgery or procedure or chance of getting an infection with perfect accuracy, but a joint decision was made between the patient and the surgeon/proceduralist ?to proceed at this time with the scheduled surgery/procedure as indicated on the consent form. I have re-examined the patient. There are no clinical changes since date of exam.
[2020-01-01] MEDS: Cefazolin 2 GM in 0.9% Normal Saline 100 ML IV (11:30)
--- NOTE | 2020-01-01 11:40 | PCM.OPRPT ---
Problem List (1) Mass of skin of back Status: Acute Report of Operation Date of Procedure: 01/01/20 Pre-Operative Diagnosis: 4-1/2 cm uncertain skin lesion to back Post-Operative Diagnosis: Same Surgery/Procedure Performed:: Excision of a 4-1/2 cm uncertain skin lesion to back Type of Anesthesia:: Local MAC Anesthesiologist: Jeffery Collazo Specimen's removed: 4-1/2 cm uncertain skin lesion to back Estimated Blood Loss (mL): < 25 cc Fluids Replaced: 500cc lr Description of Procedure: Patient was brought into the operating room. Placed in the prone position. Under excellent MAC anesthetic his back on the right side was sterilely prepped and draped in usual fashion. Local was injected. Elliptical incision was made around this lesion making sure that I got 2 cm of clearance all around. Electrocautery was used for good hemostasis. I undermined the skin below Julio's fascia. I then brought the wound together with subcu of 2-0 Vicryl. Deep dermal stitches of 3-0 Vicryl then interrupted 3-0 nylon on the skin. Sterile dressings were applied and the patient tolerated the procedure well. Total length of the incision was 7 cm. - Admit VTE Documentation VTE Present on Admission: No VTE Mechan Device Prophylaxis: SCD's VTE Pharm Prophylaxis ordered?: No Reason prophylaxis not ordered:: Treatment Not Indicated 116xx: [id number] Exc tr-ext mal+carlos enrique >4 cm
[2020-01-01] MEDS: Bupivacaine Mpf 0.5% 30 ML VIAL (11:50)
--- NOTE | 2020-01-01 12:00 | LIP_PTH ---
PATIENT: SEBASTIEN GLOVER LOC: [facility] [place] U#:[id number] AGE/SX: 64/M ROOM: RE01/01/[address]: Dr. Nader Washburn MD : [id number] BED: DIS: 01/01/2020 SPEC #: [id number] RECD: 01/01/20 12:53 STATUS: SADIE REToro #: [id number] TURNER: 01/01/20 12:[address]: Nader Washburn DEPT: SURGICAL PATHOLOGY RECD BY: Taylor Jean ENTERED: 01/01/20 13:26 SP TYPE: LIPOMA OTHR DR: Dr. Paula Sainz MD Tissues: Soft tissues, NOS Procedures: Surgery Specimen Level IV HEADER OPERATION: Mid back lipoma excision PRE-OP DIAGNOSIS: Mass of skin of back TISSUE SUBMITTED: Lipoma mid right back MICROSCOPIC DIAGNOSIS Mid back lesion, biopsy: Nodular basal cell carcinoma (4 cm in greatest dimension), completely excised. See comment. FRED:asim 01/04/20 COMMENT Immunohistochemistry ([id number]) supports the above diagnosis. MICROSCOPIC DESCRIPTION Slides are reviewed. GROSS DESCRIPTION Received in fixative is one container labeled with the patient's name and designated lipoma mid right back. The specimen consists of an ovoid piece of stephens-white skin measuring 5.5 x 3.5 cm and up to 1.5 cm in depth. There is a raised pink-grayish lesion on the surface measuring 4 x 3 x 1.5 cm. The lesion is 0.5 to 1 cm away from the peripheral margin. The specimen is inked and serially sectioned. Sections of the lesion reveal congested and hemorrhagic cut surfaces. Transliterator sections are submitted in 11 cassettes. Cassette 1 contains the tips of the skin piece. The lesion is submitted in entirety. Sections will be submitted after overnight fixation. / FRED:asim 01/01/20 TC:0 CPT: 61201 ADDENDUM ADDENDUM ADDENDUM ADDENDUM ADDENDUM ADDENDUM ADDENDUM ADDENDUM ADDENDUM ADDENDUM ADDENDUM ADDENDUM ADDENDUM 01/11/2020 10:20 ADDENDUM 01/11/2020 10:20 ADDENDUM 01/11/2020 10:20 ADDENDUM 01/11/2020 10:20 ADDENDUM 01/11/2020 10:20 DIAGNOSIS: Mid right back lesion (excision biopsy): Nodular basal cell carcinoma, probable. See comment. SJ:asim 01/11/20 COMMENT: Basal cell carcinoma is favored based on histology and immunostains. However, the specimen was not well preserved and evaluation is limited. Other atypical adnexal neoplasm cannot be entirely ruled out. The specimen is sent to [facility] for expert opinion and reviewed by Dr. Anton Trent and above diagnosis is rendered. Complete report is viewable in patient's EMR.
--- NOTE | 2020-01-01 12:25 | DCINST_ITS ---
Discharge Diet: Light diet - advance as tolerated - If you have questions about your diet instructions, please talk to your doctor. Discharge Activity: May Not Drive - for 1 week or while taking narcotic pain medicine. May shower in (days): 1 Lifting Restrictions: 10 pounds Call your doctor if your incision/area has: Continuous Slow Oozing, Sudden Increased Bleeding, Increased Pain/ Swelling, Increased Redness, Foul Smelling Discharge Call your doctor if you observe: Fever of 101 or Higher Suture Line Care: Avoid Pulling/Pushing, Avoid Pinching/Bending Additional Dressing/Incision Instructions:: Change or remove dressing in 4 days. Leave steri-strips in place for 1 week. Allergies/Adverse Reactions: Allergies BLOOD PRESSURE MED Adverse Reaction (Uncoded 01/01/20 10:15) Nausea Medications to take at Discharge Amlodipine [Norvasc] 10 mg PO DAILY 04/14/18 Ascorbic Acid [Vitamin C] 500 mg PO DAILY 04/14/18 Aspirin [Aspirin, Baby] 81 mg PO QODAY 04/14/18 Cholecalciferol (Vitamin D3) [Vitamin D3] 2,000 unit PO DAILY 04/14/18 Cyanocobalamin (Vitamin B-12) [Vitamin B-12] 1,000 mcg PO DAILY 04/14/18 Folic Acid 1 mg PO DAILY 04/14/18 Hydrochlorothiazide [Hctz] 25 mg PO DAILY 04/14/18 Potassium Chloride [K-Dur] 10 meq PO DAILY 04/14/18 Pyridoxine HCl [Vitamin B-6] 100 mg PO DAILY 04/14/18 albuterol sulfate 0.63 mg/3 mL solution for nebulization 0.63 mg INHALATION BID ml 12/17/19 atorvastatin 10 mg tablet 10 mg PO DAILY tab 12/17/19 benazepril 10 mg tablet 40 mg PO DAILY tab 12/17/19 benazepril 20 mg tablet 20 mg PO DAILY tab 12/17/19 bupropion HCl 100 mg tablet 150 mg PO BID tab 12/17/19 famotidine 20 mg tablet 20 mg PO DAILY PRN tab 12/17/19 sertraline 50 mg tablet 75 mg PO DAILY tab 12/17/19 Fluticasone/Vilanterol [Breo Ellipta 200-25 Mcg INH] 1 ea IH DAILY 12/25/19 Umeclidinium [place] [Incruse Ellipta] 62.5 mcg IH DAILY 12/25/19 Oxycodone HCl/Acetaminophen [Percocet 5/325] 1 - 2 tablet PO Q4H PRN PRN 6 Days #30 tablet 01/01/20 The following prescriptions were given: Oxycodone HCl/Acetaminophen [Percocet 5/325] 1 - 2 tablet PO Q4H PRN PRN 6 Days #30 tablet PRN Reason: Pain Transmission Status: Received by [facility]OWN #[id number] Primary Care Physician: Paula Sainz MD [Primary Care Provider] - Test Results: Test results from this visit will be discussed in further detail at your follow- up appointment, if applicable. Please Follow Up With: Nader Washburn MD - [phone] When: Call to make an appointment to be seen in about 10 days.
[2020-01-01 12:26] VITALS: BP 127/77; BP 130/90; PULSE 67; RESP 16; TEMP 36.4; O2SAT 96
[2020-01-01 12:31] VITALS: BP 122/81; BP 130/90; PULSE 78; RESP 16; O2SAT 97
[2020-01-01 12:43] VITALS: BP 129/68; BP 130/90; PULSE 72; RESP 16; TEMP 36.7; O2SAT 96
[2020-01-01 13:18] VITALS: BP 119/80; BP 130/90; PULSE 60; RESP 16; TEMP 36.6; O2SAT 95
== END 2020-01-01 13:20 | disposition home or self-care (01) ==
LOC: SDC 09:40 → AC 09:46
PROVIDERS: Anesthesiology; PCP Specialist; Referring Provider Surgery; Visit Provider Surgery
PROC: (CPT 11606; principal; 2020-01-01 11:45)
DX: C44.519 Basal cell carcinoma of skin of other part of trunk (principal); J44.9 Chronic obstructive pulmonary disease, unspecified; I10 Essential (primary) hypertension; F17.200 Nicotine dependence, unspecified, uncomplicated; K21.9 Gastro-esophageal reflux disease without esophagitis; E78.00 Pure hypercholesterolemia, unspecified; F41.9 Anxiety disorder, unspecified; F32.9 Major depressive disorder, single episode, unspecified; Z20.828 Contact with and (suspected) exposure to other viral communicable diseases; Z79.51 Long term (current) use of inhaled steroids; Z79.899 Other long term (current) drug therapy
CPT/HCPCS: 11606; 12032; 87635; 88304; 88305; 88341; 88342; C9803; J7120; U0003

== ENCOUNTER → 2020-04-04 12:43 | Outpatient (CLI) | payer OTHER, SELFPAY ==
[2019-12-17 13:07] VITALS: BMI 28.8
--- NOTE | 2020-04-04 12:46 | CT_ITS ---
STUDY: CT CHEST WITHOUT CONTRAST REASON FOR EXAM: Male, 64 years old. LUNG NODULE. Hx of HTN, COPD and smoking hx of 1ppd x 45yr RADIATION DOSAGE (If Supplied By Facility): CTDIvol = ( 11.26 ) mGy, DLP = ( 445.34 ) mGycm TECHNIQUE: Transaxial imaging was performed without the administration of intravenous contrast material. Multiplanar coronal and sagittal images were reformatted. Individualized dose optimization techniques were used for this CT. COMPARISON: Comparison is made with prior examination of 11/16/2019. FINDINGS: Small bilateral benign-appearing axillary Hyperinflation. Diffuse emphysematous changes with evidence of centrilobular emphysema more prominent in the upper lobes. The previously seen 4.6 mm noncalcified nodule in the left lower lobe is not seen at this time. Stable focal reticular nodular density in the posterior segment of the left lower lobe. There is no demonstrated pleural abnormality. There are calcifications of the coronary arteries. Minimal thickening of the anterior pericardium. There are multiple small lymph nodes within the mediastinum, which are normal in size and morphology most compatible with reactive lymph hyperplasia. Normal hilar regions. Normal unenhanced pulmonary arteries. There is atherosclerotic calcification of the aortic arch with tortuosity and elongation of the aortic arch and descending thoracic aorta. There are mild degenerative changes of the thoracic spine. Stable 2 cm hypodense nodule in the medial limb of the left adrenal gland. CT/Chest without Contrast IMPRESSION: The previously seen 4.6 mm noncalcified nodule in the left lower lobe is not seen at this time. Electronically Signed: Vicente Velasquez MD at 13:23 EST , Service support ,
== END ==
PROVIDERS: PCP Specialist; Referring Provider Internal Medicine Pulmonary Disease; Visit Provider Internal Medicine Pulmonary Disease
DX: R91.1 Solitary pulmonary nodule (principal)
CPT/HCPCS: 71250

== ENCOUNTER 2020-05-20 12:44 | Outpatient (RCR) | payer OTHER, SELFPAY ==
[2020-05-20] MEDS: COVID-19 VACC, MRNA(PFIZER)/PF 30 MCG/0.3 ML SYRINGE IM (10:08)
[2020-06-10] MEDS: COVID-19 VACC, MRNA(PFIZER)/PF 30 MCG/0.3 ML SYRINGE IM (10:00)
== END 2020-08-19 23:59 ==
LOC: IMMUN 12:44
PROVIDERS: PCP Specialist; Visit Provider Family Medicine
DX: Z23 Encounter for immunization (principal)
CPT/HCPCS: 0001A; 0002A; 91300

== ENCOUNTER → 2020-10-02 12:55 | Outpatient (CLI) | payer OTHER, SELFPAY ==
--- NOTE | 2020-10-02 12:58 | CT_ITS ---
STUDY: CT CHEST WITHOUT CONTRAST REASON FOR EXAM: Male, 64 years old. Follow-up for lung nodule. The patient smoked 1 pack per day for 50 years. RADIATION DOSAGE (If Supplied By Facility): CTDIvol = ( 9.95 ) mGy, DLP = ( 395.92 ) mGycm TECHNIQUE: Transaxial imaging was performed without the administration of intravenous contrast material. Multiplanar coronal and sagittal images were reformatted. Individualized dose optimization techniques were used for this CT. COMPARISON: Comparison is made with prior study dated 04/04/2020. FINDINGS: Small benign appearing bilateral axillary lymph nodes. The largest lymph node is in the right axillary region and measures 1.4 cm. Hyperinflation. Emphysematous changes with centrilobular emphysema more prominent in the upper lobes. No pulmonary nodule is seen at this time. There is no demonstrated pleural abnormality. There are calcifications of the coronary arteries. There are multiple small lymph nodes within the mediastinum, which are normal in size and morphology most compatible with reactive lymph hyperplasia. Normal hilar regions. Normal unenhanced pulmonary arteries. There is atherosclerotic calcification of the aortic arch . There are mild degenerative changes of the thoracic spine. Stable 2 cm hypodensity in the left adrenal gland. CT/Chest without Contrast IMPRESSION: Stable examination. No pulmonary nodules Electronically Signed: Vicente Velasquez MD at 13:51 EDT , Service support ,
== END ==
PROVIDERS: PCP Specialist; Referring Provider Internal Medicine Pulmonary Disease; Visit Provider Internal Medicine Pulmonary Disease
DX: J44.9 Chronic obstructive pulmonary disease, unspecified (principal); R91.8 Other nonspecific abnormal finding of lung field
CPT/HCPCS: 71250

== ENCOUNTER → 2021-01-02 08:29 | Outpatient (CLI) | payer MEDICARE, OTHER, SELFPAY ==
[2021-01-02 10:47] LABS: ALB/GLOB Ratio 0.9 RATIO (0.9-2.4); AST(SGOT) 21 U/L (15-37); Alanine Aminotransfer ALT/SGPT 16 U/L (16-61); Albumin, Serum 3.3 g/dL (3.2-5.0); Alkaline Phosphatase 93 U/L (45-117); Anion Gap 7 (5-15); BUN 24 mg/dL (7-18); BUN/Creat Ratio 17.1 RATIO (10-20); Calcium,Total 8.8 mg/dL (8.5-10.1); Chloride 102 mmol/L (98-107); Cholesterol 201 mg/dL (200); EST Glomerular Filtration Rate 54 mL/min (>60); Est Glom Filt Rate - Afr Amer 65 mL/min (>60); Globulin 3.8 g/dL (2.2-4.2); Glucose 105 mg/dL (74-106); High Density Lipoprotein 34 mg/dL; Potassium 3.4 mmol/L (3.5-5.1); Protein, Total 7.1 g/dL (6.4-8.2); Sodium Level 139 mmol/L (136-145); Triglycerides 212 mg/dL; Very Low Density Lipoprotein 42 mg/dL (5-40)
== END ==
PROVIDERS: PCP Specialist; Referring Provider Specialist; Visit Provider Specialist
DX: E55.9 Vitamin D deficiency, unspecified (principal); I12.9 Hypertensive chronic kidney disease with stage 1 through stage 4 chronic kidney disease, or unspecified chronic kidney disease; N18.2 Chronic kidney disease, stage 2 (mild); E78.5 Hyperlipidemia, unspecified
CPT/HCPCS: 36415; 80053; 80061; 82306; 87070; 87205

== ENCOUNTER 2021-03-06 22:54 | Emergency (ER) | payer MEDICARE, OTHER, SELFPAY ==
[2021-03-06 22:55] VITALS: BP 154/92; PULSE 83; RESP 30; TEMP 36.3; O2SAT 85; BMI 30.3
[2021-03-06 22:59] VITALS: BP 154/92; PULSE 91; RESP 30; TEMP 36.3; O2SAT 95; O2SAT 97
--- NOTE | 2021-03-06 23:01 | EKG12_ITS ---
Test Reason : SOB Blood Pressure : / mmHG Vent. Rate : 076 BPM Atrial Rate : 076 BPM P-R Int : 140 ms QRS Dur : 090 ms QT Int : 406 ms P-R-T Axes : 075 082 083 degrees QTc Int : 456 ms Sinus rhythm with occasional Premature ventricular complexes Otherwise normal ECG Confirmed by ERA MIRANDA, TANA ([id number]), editor book ZANA CHOI ([id number]) on 03/10/2021 9:40:58 AM Referred By: MICHAEL Confirmed By:TANA GIRARD MD
[2021-03-06 23:04] VITALS: O2SAT 97
--- NOTE | 2021-03-06 23:06 | EDS_ITS ---
HPI History of Present Illness Chief Complaint: Shortness of Breath Informant: patient and spouse/S.O. Onset/Context/Timing Onset: Days Context: gradual Timing: Continuous Current Severity: Mild Maximum Severity: Mild Associated Symptoms cough, fever, subjective and chills Chest Pain: Positive for None Narrative Narrative: 65-year-old male history of COPD and hypertension. On 2 L nasal cannula home O2. Patient states he has not felt well for a week. He said he has had subjective fever and chills. Cough of cloudy phlegm. No hemoptysis. No chest pain. He was vaccinated x2 against Covid. No history of DVT or PE. No recent travel, surgery or immobilization. No calf pain or swelling. No hemoptysis. PE Risk Factors: Positive for Prior DVT or PE; Negative for Cancer, OCP + Smoking + > 35, Recent immobilization, Recent surgery and Recent travel Prior similar symptoms: Yes Recent Illness/Hospitalization: No PFSH PFS Medical History (Updated 03/07/21 @ 00:[address] Kojo Pozo MD) COPD (chronic obstructive pulmonary disease) COPD exacerbation History of basal cell carcinoma (BCC) Hypertension Mass of skin of back Home Medications amlodipine 10 mg PO DAILY 04/14/18 [History Last Taken 01/01/20] ascorbic acid (vitamin C) 500 mg PO DAILY 04/14/18 [History Last Taken Unknown] aspirin 81 mg PO QODAY 04/14/18 [History Last Taken 12/23/19] cholecalciferol (vitamin D3) 2,000 unit PO DAILY 04/14/18 [History Last Taken Unknown] cyanocobalamin (vitamin B-12) 1,000 mcg PO DAILY 04/14/18 [History Last Taken Unknown] folic acid 1 mg PO DAILY 04/14/18 [History Last Taken Unknown] hydrochlorothiazide 25 mg PO DAILY 04/14/18 [History Last Taken Unknown] potassium chloride 10 meq PO DAILY 04/14/18 [History Last Taken Unknown] pyridoxine (vitamin B6) 100 mg PO DAILY 04/14/18 [History Last Taken Unknown] albuterol sulfate 0.63 mg/3 mL solution for nebulization 0.63 mg INHALATION BID ml 12/17/19 [History Last Taken 01/01/20] atorvastatin 10 mg tablet 10 mg PO DAILY tab 12/17/19 [History Last Taken Unknown] benazepril 10 mg tablet 40 mg PO DAILY tab 12/17/19 [History Last Taken 01/01/20] benazepril 20 mg tablet 20 mg PO DAILY tab 12/17/19 [History Last Taken 01/01/20] bupropion HCl 100 mg tablet 100 mg PO BID tab 12/17/19 [History Last Taken Unknown] famotidine 20 mg tablet 20 mg PO DAILY PRN tab 12/17/19 [History Last Taken 01/01/20] sertraline 50 mg tablet 75 mg PO DAILY tab 12/17/19 [History Last Taken Unknown] fluticasone furoate-vilanterol 1 ea IH DAILY 12/25/19 [History Last Taken Unknown] umeclidinium 62.5 mcg IH DAILY 12/25/19 [History Last Taken 01/01/20] prednisone 40 mg PO DAILY 7 Days #14 tab 03/07/21 [Rx Last Taken Unknown] Allergy/AdvReac Type Severity Reaction Status Date / Time BLOOD PRESSURE MED AdvReac Nausea Uncoded 01/14/20 07:56 Family History Mother Dementia Alzheimer disease Hypertension Father Prostate cancer Surgical History History of basal cell carcinoma (BCC) excision Hx of hand surgery Hx of left inguinal hernia repair Social History Smoking Status: Current every day smoker tobacco type: cigarettes second hand exposure: Yes alcohol intake: never substance use type: does not use caffeine: Yes what type of physical activity do you participate in: none frequency: does not exercise ROS ROS ED ROS Narrative Cough, subjective fever and chills, dyspnea. Body aches. Review of Systems ROS Unobtainable: Denies due to encephalopathy Constitutional Constitutional ED: Reports chills and fever(s); Denies sweats Eyes Eyes: Denies change in vision ENT ENT ED: Denies ear pain or sore throat Cardiovascular Cardiovascular: Denies chest pain Respiratory/Chest Respiratory/Chest: Reports cough, dyspnea and sputum Gastrointestinal Gastrointestinal: Denies abdominal pain, diarrhea, nausea or vomiting Genitourinary Genitourinary ED: Denies dysuria Musculoskeletal Musculoskeletal: Reports myalgias Integumentary Denies rash Neurologic Neurologic: Denies headache(s) Psychiatric Psychiatric: Denies depression Endocrine Endocrinology: Denies polyuria Hematologic/Lymphatic Hematologic/Lymphatic: Denies easy bruising Allergic/Immunologic Allergic/Immunologic ED: Denies urticaria EXAM Physical Exam Narrative Exam Narrative: 65-year-old male no acute distress on room air is 85% on 2 L which is his normal baseline home O2 is 95%. He is in no distress. H EENT exam unremarkable. Neck nontender no lymphadenopathy. Lungs clear to auscultation bilaterally. Heart regular rhythm rate about 90 no murmur. Chest wall nontender. Abdomen soft nontender. Moving all 4 extremities. Calves nontender without edema or cords. Neurologically is awake and alert with no focal motor deficits. Const Vital Signs: 03/06/21 22:55 03/06/21 22:59 03/06/21 23:04 Temperature 97.4 F L 97.4 F L Temperature Source Temporal Temporal Pulse Rate 83 91 Respiratory Rate 30 H 30 H Respiratory Effort Short of Breath Labored Respiratory Depth Deep Blood Pressure 154/92 H 154/92 H Blood Pressure Mean 112 112 Pulse Ox 85 95 97 Oxygen Delivery Method Room Air Nasal Cannula Nasal Cannula Oxygen Flow Rate (L/min) 2 Fraction of Inspired Oxygen (FIO2) 2 Positive well nourished and well developed; Negative for cachectic, contractures or unkempt General Appearance ED: well developed and NAD; Negative for unkempt, cachectic, contractures or pallor Nutritional Appearance: Negative for cachectic HEENT Reports moist mucous membranes atraumatic Eyes PERRL and EOMs intact bilaterally Neck no lymphadenopathy, supple, no meningeal signs and no JVD General: Negative for tenderness Resp normal respiratory effort and clear to auscultation bilaterally Auscultation: Negative for rales, rhonchi or wheezes Cardio regular rate, regular rhythm, S1 normal heart sound, S2 normal heart sound and no murmurs GI non-tender, non-distended and no masses Auscultation: normoactive bowel sounds Palpation: soft; Negative for tender or guarding Back/Spine no CVA tenderness and normal to inspection General Back: Negative for CVA tenderness Extremity normal to inspection General Extremety ED: Negative for edema or tenderness General Extremity: Negative for edema Neuro oriented x3 Sensorium / Orientation: alert, oriented to person, oriented to place and o riented to time; Negative for orientation impaired, confused, lethargic or stuporous Motor Exam: strength 5/5 throughout Psych mental status grossly normal Appearance: Negative for unkempt Thought Process: normal thought process Skin no wounds General Skin Exam: Negative for jaundice or pallor Lesions: no lesions Rashes: no rashes MDM MDM MDM Narrative Medical decision making narrative: 65-year-old male with shortness of breath with a known history of COPD. Exam is benign. He is vaccinated against Covid but he has many URI-like symptoms. I will go through a cardiac respiratory work-up currently is not hypoxic. He has no PE or DVT risk factors. Repeat exam patient is doing well resting comfortably on his normal 2 L of oxygen is 95% with a respiratory rate of 19 and pulse of 70. He has no complaints. We went over all his test results are unremarkable. He will be discharged home with a prescription of prednisone and given a dose here. Lab Data Attestation: I reviewed the patient's lab results. Lab results narrative: CBC shows a white count of 14.9. Hemoglobin of 14.9 also. Platelets 235. Electrolytes unremarkable gap of 7 BUNs elevated 31 creatinine is 1.37 he has a history of renal insufficiency. High-sensitivity troponin is normal. Rapid COVID-19 test is negative. Labs: Laboratory Results - last 24 hr 03/06/21 03/06/21 23:10 23:10 WBC 14.9 H RBC 5.27 Hgb 14.9 Hct 44.6 MCV 84.6 MCH 28.3 MCHC 33.4 RDW Std Deviation 40.5 RDW Coeff of Heather 13.1 Plt Count 235 MPV 11.5 Immature Gran % (Auto) 0.700 Neut % (Auto) 64.0 Lymph % (Auto) 26.6 [place] % (Auto) 6.3 Eos % (Auto) 1.7 Baso % (Auto) 0.7 Absolute Neuts (auto) 9.5 H Absolute Lymphs (auto) 3.97 Nucleated RBC % 0 Sodium 139 Potassium 3.5 Chloride 104 Carbon Dioxide 28.0 Anion Gap 7 BUN 31 H Creatinine 1.37 H Estim Creat Clear Calc 53.76 Est GFR (MDRD) Af Amer 67 Est GFR (MDRD) Non-Af 55 L BUN/Creatinine Ratio 22.6 H Glucose 92 Calcium 9.2 Troponin I High Sens 16 Radiography Chest X-Ray - ED: 1 View, Read by ED Physician, Heart, Lungs, Mediastinum, Bony Structures, No Acute Disease and Chronic Changes Diagnostic Testing: Chest x-ray, portable, single view interpreted myself shows no acute abnormality. Chronic changes. No infiltrate. No pulmonary edema. No pleural effusions. Rhythm Strip Rhythm Strip: Sinus Rhythm Rate: 76 Ectopy: PVC(s) EKG Initial EKG: Attestation: I personally reviewed and interpreted this EKG as follows: Interpretation: Sinus Rhythm and No Acute Injury Pattern Comments: Sinus rhythm rate of 76 no acute signs of MD or ischemia. Occasional PVCs. Discharge Plan Triage Chief Complaint: Shortness of Breath ED Provider: Kojo Pozo Dx/Rx/DC Orders Clinical Impression: COPD exacerbation Instructions: Asthma and COPD Prescriptions: New prednisone 20 mg tablet 40 mg PO DAILY 7 Days Qty: 14 RF: 0 No Action benazepril 20 mg tablet 20 mg PO DAILY RF: 0 atorvastatin 10 mg tablet 10 mg PO DAILY RF: 0 famotidine 20 mg tablet 20 mg PO DAILY PRN (Reason: reflux) RF: 0 sertraline 50 mg tablet 75 mg PO DAILY RF: 0 albuterol sulfate 0.63 mg/3 mL solution for nebulization 0.63 mg INHALATION BID RF: 0 bupropion HCl 100 mg tablet 100 mg PO BID RF: 0 amlodipine 10 MG tablet 10 mg PO DAILY RF: 0 aspirin 81 MG tablet,chewable 81 mg PO QODAY RF: 0 folic acid 1 MG tablet 1 mg PO DAILY RF: 0 hydrochlorothiazide 25 MG tablet 25 mg PO DAILY RF: 0 pyridoxine (vitamin B6) 100 MG tablet 100 mg PO DAILY RF: 0 potassium chloride 10 MEQ tablet 10 meq PO DAILY RF: 0 cholecalciferol (vitamin D3) 2,000 UNIT capsule 2,000 unit PO DAILY RF: 0 ascorbic acid (vitamin C) 500 MG capsule 500 mg PO DAILY RF: 0 cyanocobalamin (vitamin B-12) 1,000 MCG capsule 1,000 mcg PO DAILY RF: 0 benazepril 10 mg tablet 40 mg PO DAILY RF: 0 umeclidinium 62.5 MCG blister with device 62.5 mcg IH DAILY RF: 0 fluticasone furoate-vilanterol 1 EACH blister with device 1 ea IH DAILY RF: 0 Primary Care Provider: Paula Sainz Referrals: Paula Sainz MD [Primary Care Provider] - 3-5 Days if not improving Activity Restrictions/Additional Instructions: Use your oxygen as much as possible. Use your inhalers as needed and prednisone daily for the next week. Stop smoking !! Return if you are feeling worse or follow-up your primary care physician not improving. Your labs and chest x-ray tonight were unremarkable. Disposition Disposition: Home, Self Care
[2021-03-06 23:31] LABS: Absolute Lymphocyte Count 3.97 X10^3/uL (0.83-4.51); Absolute Neutrophil Count 9.5 X10^3/uL (2.0-7.7); Basophil% 0.7 % (0-1); Eosinophil# 0.25 X10^3/uL; Eosinophils% 1.7 % (0-5); Hematocrit 44.6 % (40-54); Hemoglobin 14.9 g/dL (13.0-16.5); Lymphocyte # 3.97 X10^3/ul (0.83-4.51); Lymphocyte % 26.6 % (19-41); Mean Corp Hgb Conc 33.4 g/dL (32-36); Mean Corpuscular Hgb 28.3 pg (27.0-32.0); Mean Corpuscular Volume 84.6 fL (80-94); Mean Platelet Vol. 11.5 fl (6.2-12.0); Monocyte# 0.94 X10^3/uL; Monocyte% 6.3 % (0-10); NRBC Flagged by Analyzer 0 % (0-5); Neutrophil # 9.54 X10^3/uL (2.7-7.7); Platelet Count 235 K/mm3 (150-450); RBC Distribution Width CV 13.1 % (11.6-14.6); RBC Distribution Width SD 40.5 fl (35.1-43.9); Red Blood Count 5.27 M/mm3 (4.6-6.2); White Blood Count 14.9 K/mm3 (4.4-11.0)
[2021-03-06 23:34] LABS: Anion Gap 7 (5-15); BUN 31 mg/dL (7-18); BUN/Creat Ratio 22.6 RATIO (10-20); Calcium,Total 9.2 mg/dL (8.5-10.1); Chloride 104 mmol/L (98-107); Creatinine, Serum 1.37 mg/dL (0.70-1.30); EST Glomerular Filtration Rate 55 mL/min (>60); Est Glom Filt Rate - Afr Amer 67 mL/min (>60); Estimated Creatinine Clearance 53.76 ml/min; Glucose 92 mg/dL (74-106); Potassium 3.5 mmol/L (3.5-5.1); Sodium Level 139 mmol/L (136-145); Troponin-I HS 16 pg/mL (3.0-78.0)
--- NOTE | 2021-03-06 23:45 | RAD_ITS ---
INDICATION: chest pain EXAMINATION/TECHNIQUE: X-RAY - XR Chest 1 View COMPARISON: CT chest 10/02/2020 FINDINGS: LINES/DEVICES: None. LUNGS: Mild hyperlucency seen in the upper lungs suggesting emphysema. No significant air trapping simplified. No consolidation, pleural effusion or pneumothorax. No nodule or mass. MEDIASTINUM AND CARDIOVASCULAR STRUCTURES: Normal size and contour of the cardiomediastinal silhouette. No evidence of pulmonary vascular congestion. BONES AND SOFT TISSUES: No abnormality within limits of the exam. RAD/Chest 1 View (Portable) IMPRESSION: 1. No evidence of acute cardiopulmonary disease. 2. Emphysematous changes. Electronically Signed: Kingsley Jiang DO at 1:55 EST Tel , Service support ,
[2021-03-07 00:04] VITALS: BP 139/85; PULSE 65; RESP 18; O2SAT 95
[2021-03-07 00:05] VITALS: BP 135/79
[2021-03-07] MEDS: predniSONE 20 MG Tablet 40 MG PO (00:10)
== END 2021-03-07 00:16 | disposition home or self-care (01) ==
PROVIDERS: Emergency Provider Emergency Medicine; PCP Specialist
DX: J44.1 Chronic obstructive pulmonary disease with (acute) exacerbation (principal); I10 Essential (primary) hypertension; G30.9 Alzheimer's disease, unspecified; F02.80 Dementia in other diseases classified elsewhere, unspecified severity, without behavioral disturbance, psychotic disturbance, mood disturbance, and anxiety; F17.210 Nicotine dependence, cigarettes, uncomplicated; Z79.52 Long term (current) use of systemic steroids; Z79.82 Long term (current) use of aspirin; Z86.718 Personal history of other venous thrombosis and embolism; Z79.899 Other long term (current) drug therapy
CPT/HCPCS: 71045; 80048; 84484; 85025; 87426; 93005; 99285; A4216

== ENCOUNTER 2021-04-22 12:34 | Outpatient (CLI) | payer MEDICARE, OTHER, SELFPAY ==
[2021-04-22 13:36] LABS: Absolute Lymphocyte Count 2.54 X10^3/uL (0.83-4.51); Absolute Neutrophil Count 7.4 X10^3/uL (2.0-7.7); Basophil# 0.06 X10^3/uL; Basophil% 0.6 % (0-1); Eosinophil# 0.16 X10^3/uL; Eosinophils% 1.5 % (0-5); Hematocrit 47.6 % (40-54); Hemoglobin 15.5 g/dL (13.0-16.5); Lymphocyte # 2.54 X10^3/ul (0.83-4.51); Lymphocyte % 23.6 % (19-41); Mean Corp Hgb Conc 32.6 g/dL (32-36); Mean Corpuscular Hgb 28.2 pg (27.0-32.0); Mean Corpuscular Volume 86.7 fL (80-94); Monocyte# 0.55 X10^3/uL; Monocyte% 5.1 % (0-10); NRBC Flagged by Analyzer 0 % (0-5); Neutrophil # 7.38 X10^3/uL (2.7-7.7); Neutrophil % 68.6 % (47-70); Platelet Count 210 K/mm3 (150-450); RBC Distribution Width CV 13.1 % (11.6-14.6); RBC Distribution Width SD 41.2 fl (35.1-43.9); Red Blood Count 5.49 M/mm3 (4.6-6.2); White Blood Count 10.8 K/mm3 (4.4-11.0)
[2021-04-22 14:17] LABS: AST(SGOT) 22 U/L (15-37); Alanine Aminotransfer ALT/SGPT 19 U/L (16-61); Albumin, Serum 3.6 g/dL (3.2-5.0); Alkaline Phosphatase 80 U/L (45-117); Anion Gap 7 (5-15); BUN 16 mg/dL (7-18); BUN/Creat Ratio 13.7 RATIO (10-20); Chloride 102 mmol/L (98-107); Cholesterol 151 mg/dL (200); Creatinine, Serum 1.17 mg/dL (0.70-1.30); EST Glomerular Filtration Rate 66 mL/min (>60); Est Glom Filt Rate - Afr Amer 80 mL/min (>60); Globulin 3.7 g/dL (2.2-4.2); Glucose 101 mg/dL (74-106); High Density Lipoprotein 39 mg/dL; Iron 54 ug/dL (65-175); Microalbumin:Creatinine Ratio 394.4 mg/g CRE (<30 mg/g CRE); PSA,Total- Diagnostic 2.38 ng/mL (0.0-4.0); Phosphorus 3.1 mg/dL (2.5-4.9); Potassium 3.5 mmol/L (3.5-5.1); Protein, Total 7.3 g/dL (6.4-8.2); Sodium Level 139 mmol/L (136-145); Triglycerides 114 mg/dL; Very Low Density Lipoprotein 23 mg/dL (5-40)
[2021-04-22 14:29] LABS: Vitamin D,25 Hydroxy 48.3 ng/mL
[2021-04-24 14:27] LABS: MG Sendout 2.3 mg/dL (1.6-2.3)
== END 2021-04-22 23:59 | disposition home or self-care (01) ==
LOC: LAB 12:38
PROVIDERS: PCP Specialist; Referring Provider Specialist; Visit Provider Specialist
DX: E55.9 Vitamin D deficiency, unspecified (principal); E78.5 Hyperlipidemia, unspecified; N18.2 Chronic kidney disease, stage 2 (mild); N40.0 Benign prostatic hyperplasia without lower urinary tract symptoms; K76.0 Fatty (change of) liver, not elsewhere classified; K92.1 Melena
CPT/HCPCS: 36415; 80053; 80061; 82043; 82306; 82570; 83540; 83735; 84100; 84153; 85025

== ENCOUNTER → 2021-10-02 | Outpatient (CLI) | payer MEDICARE, OTHER, SELFPAY ==
--- NOTE | 2021-10-02 08:13 | CT_ITS ---
STUDY: CT CHEST WITHOUT CONTRAST REASON FOR EXAM: Male, 65 years old. LUNG NODULE F/U RADIATION DOSAGE (If Supplied By Facility): CTDIvol = ( 14.67 ) mGy, DLP = ( 682.00 ) mGycm TECHNIQUE: Transaxial imaging was performed without the administration of intravenous contrast material. Multiplanar coronal and sagittal images were reformatted. Individualized dose optimization techniques were used for this CT. COMPARISON: Comparison is made with prior study dated 10/02/2020. FINDINGS: CHEST Hyperinflation. Emphysematous changes more pronounced in the upper lobes. Mild scarring in the anterior medial aspect of the lingular segment of the left upper lobe. There is no demonstrated pleural abnormality. There are calcifications of the coronary arteries. There are multiple small lymph nodes within the mediastinum, which are normal in size and morphology most compatible with reactive lymph hyperplasia. Normal hilar regions. Normal unenhanced pulmonary arteries. There is atherosclerotic calcification of the aortic arch with tortuosity and elongation of the aortic arch and descending thoracic aorta. There are mild degenerative changes of the thoracic spine. Stable 2 cm hypodense nodule in the medial limb of the left adrenal gland. CT/Chest without Contrast IMPRESSION: Stable examination. Electronically Signed: Vicente Velasquez MD at 10:43 EDT ,
[2021-10-02 09:19] LABS: Hematocrit 46.1 % (40-54); Hemoglobin 14.8 g/dL (13.0-16.5)
[2021-10-02 10:00] LABS: Vitamin B12 1216 pg/mL (211-911)
[2021-10-02 10:01] LABS: ALB/GLOB Ratio 0.9 RATIO (0.9-2.4); AST(SGOT) 22 U/L (15-37); Alanine Aminotransfer ALT/SGPT 19 U/L (16-61); Albumin, Serum 3.4 g/dL (3.2-5.0); Alkaline Phosphatase 87 U/L (45-117); Anion Gap 3 (5-15); BUN 21 mg/dL (7-18); BUN/Creat Ratio 14.9 RATIO (10-20); CRP 7.04 mg/L (0.0-3.0); Calcium,Total 8.9 mg/dL (8.5-10.1); Chloride 106 mmol/L (98-107); Cholesterol 161 mg/dL (200); Creatinine, Serum 1.41 mg/dL (0.70-1.30); EST Glomerular Filtration Rate 54 mL/min (>60); Est Glom Filt Rate - Afr Amer 65 mL/min (>60); Ferritin 86 ng/mL (26-388); Globulin 3.6 g/dL (2.2-4.2); Glucose 96 mg/dL (74-106); High Density Lipoprotein 39 mg/dL; Iron 76 ug/dL (65-175); Iron Binding Capacity,Total 315 ug/dL (250-450); PERCENT IRON SATURATION 24.1 % (15.0-55.0); PSA,Total - Annual Screen 3.03 ng/mL (0.00-4.00); Potassium 3.4 mmol/L (3.5-5.1); Sodium Level 139 mmol/L (136-145); Triglycerides 210 mg/dL; Very Low Density Lipoprotein 42 mg/dL (5-40)
[2021-10-04 20:07] LABS: Folate, RBC (Hct) Test 45.2 % (37.5-51.0); Folates, RBC Test 692 ng/mL (>498)
[2021-10-04 21:29] LABS: Transferrin 249 mg/dL (177-329)
== END | disposition home or self-care (01) ==
PROVIDERS: PCP Specialist; Referring Provider Internal Medicine Pulmonary Disease; Visit Provider Internal Medicine Pulmonary Disease
DX: I25.10 Atherosclerotic heart disease of native coronary artery without angina pectoris (principal); J44.9 Chronic obstructive pulmonary disease, unspecified; J98.3 Compensatory emphysema; N18.5 Chronic kidney disease, stage 5; E27.8 Other specified disorders of adrenal gland; E21.3 Hyperparathyroidism, unspecified; R91.8 Other nonspecific abnormal finding of lung field; D37.05 Neoplasm of uncertain behavior of pharynx; E78.5 Hyperlipidemia, unspecified; R79.0 Abnormal level of blood mineral; I10 Essential (primary) hypertension; R79.82 Elevated C-reactive protein (CRP); Z12.5 Encounter for screening for malignant neoplasm of prostate
CPT/HCPCS: 36415; 71250; 80053; 80061; 82607; 82728; 82747; 83540; 83550; 84153; 84466; 85014; 85018; 86140; G0103

== ENCOUNTER → 2021-10-08 | Outpatient (CLI) | payer MEDICARE, OTHER, SELFPAY ==
--- NOTE | 2021-10-08 13:37 | US_ITS ---
STUDY: THYROID ULTRASOUND REASON FOR EXAM: Male, 65 years old. HYPERPARATHYROIDISM TECHNIQUE: Ultrasound evaluation of the thyroid was performed with real-time and static pang-scale imaging. COMPARISON: CT chest October 02, 2021 FINDINGS: RIGHT LOBE: The right lobe of the thyroid gland measures 4.3 x 0.9 x 1.6 cm. There is a homogeneous echotexture. Within the inferior somewhat posterior aspect of the right thyroid there is a 1 x 0.8 x 1 cm isoechoic and/or hyperechoic appearing nodule with calcifications without significant central vascularity.. There is a 4 x 3 x 2 mm cyst and a 4 x 3 x 4 mm partially calcification. LEFT LOBE: The left lobe of the thyroid gland measures 4.5 x 1.2 x 2.4 cm. There is a homogeneous echotexture. 2 adjacent cystic structures within the left thyroid one measuring 4.6 x 2.7 mm the other measuring 3.0 x 5.2 mm. There is no visualized vascularity of the septation between. There is a small cystic structure measuring 5.9 x 4.9 x 3.7 mm which is mostly hypoechoic and contains punctate calcification. ISTHMUS: The isthmus measures 2.2 mm . The regional lymph nodes are normal. US/Thyroid IMPRESSION: Normal size thyroid. Bilateral nodules. The largest of which is solid without significant vascularity on the right side measuring 1 x 0.8 x 1 cm., Its location considering parathyroid thyroid nodule. Potentially visualization of a parathyroid could have this appearance. Recommend consideration for follow-up thyroid ultrasound in 6 months to ensure stability. Given the clinical history could also consider a follow-up nuclear medicine scan to evaluate for parathyroid enlargement or adenoma. Electronically Signed: Aline Lugo MD at 6:53 EDT ,
--- NOTE | 2021-10-08 13:38 | EKG12_ITS ---
Test Reason : ROUTINE Blood Pressure : / mmHG Vent. Rate : 089 BPM Atrial Rate : 089 BPM P-R Int : 140 ms QRS Dur : 086 ms QT Int : 356 ms P-R-T Axes : 088 091 083 degrees QTc Int : 433 ms Normal sinus rhythm Normal ECG Confirmed by LAYO MIRANDA, ZEINA ([id number]), medical editor ZANA CHOI ([id number]) on 10/12/2021 11:17:20 AM Referred By: Paula Sainz Confirmed By:PAOLA VASQUES MD
== END | disposition home or self-care (01) ==
LOC: PSN 13:36
PROVIDERS: PCP Specialist; Referring Provider Specialist; Visit Provider Specialist
DX: E04.2 Nontoxic multinodular goiter (principal); J98.3 Compensatory emphysema; E21.3 Hyperparathyroidism, unspecified; D37.05 Neoplasm of uncertain behavior of pharynx; E78.5 Hyperlipidemia, unspecified
CPT/HCPCS: 76536; 93005

== ENCOUNTER 2022-03-14 16:36 | Inpatient (IN) | payer MEDICARE, OTHER, SELFPAY ==
[2022-03-14] VITALS (12 sets, daily range): BP systolic 121–160; BP diastolic 56–93; PULSE 79–95; RESP 22–31; TEMP 36.9–37.5; O2SAT 93–95; BMI 29.5; BMI 29.4
--- NOTE | 2022-03-14 17:33 | RAD_ITS ---
INDICATION: sob EXAMINATION/TECHNIQUE: X-RAY - XR Chest 1 View COMPARISON: 03/06/2021. FINDINGS: LINES/DEVICES: None. LUNGS: No pleural effusion or vascular congestion. Airspace disease in the lingula is consistent with pneumonia. Increased lucency in the lung apices consistent with emphysema. MEDIASTINUM AND CARDIOVASCULAR STRUCTURES: Cardiac silhouette not enlarged. Central airways and mediastinal contour are unremarkable. BONES AND SOFT TISSUES: Unremarkable. RAD/Chest 1 View (Portable) IMPRESSION: Lingular pneumonia. COPD. Electronically Signed: Latasha Berrios MD at 18:46 EST Reading Location ID and State: [id number] / Tel , Service support ,
--- NOTE | 2022-03-14 17:33 | EKG12_ITS ---
Test Reason : SOB Blood Pressure : / mmHG Vent. Rate : 082 BPM Atrial Rate : 082 BPM P-R Int : 132 ms QRS Dur : 090 ms QT Int : 364 ms P-R-T Axes : 060 086 083 degrees QTc Int : 425 ms Sinus rhythm with Premature atrial complexes Otherwise normal ECG Confirmed by RADHA MIRANDA, ODIN ([id number]), commissioning editor ZANA CHOI ([id number]) on 03/16/2022 1:21:15 PM Referred By: Confirmed By:ODIN GARCIA MD
--- NOTE | 2022-03-14 17:34 | ED.VIS.DYS ---
HPI History of Present Illness Chief Complaint: Shortness of Breath Narrative Narrative: 66-year-old male presenting with shortness of breath. He states this started approximately 1 week ago and has been progressively worsening. He has had a cough, dyspnea on exertion, chest pain intermittently. He usually wears 3 L nasal cannula oxygen and has needed to increase this recently. He has tried aerosol treatments at home without relief. He has had subjective fever. He did not get a flu shot or COVID booster. Denies PE/DVT risk factors. Prior similar symptoms: Yes Recent Illness/Hospitalization: Yes [facility] Medical History (Updated 03/14/22 @ 21:[address] Aster Gomez MD) COPD (chronic obstructive pulmonary disease) COPD exacerbation History of basal cell carcinoma (BCC) Hypertension Mass of skin of back Home Medications amlodipine 10 mg tablet 10 mg PO DAILY 04/14/18 [History Last Taken 01/01/20] ascorbic acid (vitamin C) 500 mg capsule 500 mg PO DAILY 04/14/18 [History Last Taken Unknown] aspirin 81 mg chewable tablet 81 mg PO QODAY 04/14/18 [History Last Taken 12/23/19] cholecalciferol (vitamin D3) 50 mcg (2,000 unit) capsule 2,000 unit PO DAILY 04/14/18 [History Last Taken Unknown] cyanocobalamin (vitamin B-12) 1,000 mcg capsule 1,000 mcg PO DAILY 04/14/18 [History Last Taken Unknown] folic acid 1 mg tablet 1 mg PO DAILY 04/14/18 [History Last Taken Unknown] hydrochlorothiazide 25 mg tablet 25 mg PO DAILY 04/14/18 [History Last Taken Unknown] potassium chloride 10 mEq tablet,extended release(part/cryst) 10 meq PO DAILY 04/14/18 [History Last Taken Unknown] pyridoxine (vitamin B6) 100 mg tablet 100 mg PO DAILY 04/14/18 [History Last Taken Unknown] albuterol sulfate 0.63 mg/3 mL solution for nebulization 0.63 mg inhalation BID copd 12/17/19 [History Last Taken 01/01/20] atorvastatin 10 mg tablet 10 mg PO DAILY 12/17/19 [History Last Taken Unknown] benazepril 10 mg tablet 40 mg PO DAILY 12/17/19 [History Last Taken 01/01/20] benazepril 20 mg tablet 20 mg PO DAILY 12/17/19 [History Last Taken 01/01/20] bupropion HCl 100 mg tablet 100 mg PO BID 12/17/19 [History Last Taken Unknown] famotidine 20 mg tablet 20 mg PO DAILY PRN reflux 12/17/19 [History Last Taken 01/01/20] sertraline 50 mg tablet 75 mg PO DAILY 12/17/19 [History Last Taken Unknown] fluticasone furoate 200 mcg-vilanterol 25 mcg/dose inhalation powder 1 ea IH DAILY copd 12/25/19 [History Last Taken Unknown] hydralazine 25 mg tablet 25 mg PO TID 03/14/22 [History Last Taken Unknown] Allergy/AdvReac Type Severity Reaction Status Date / Time BLOOD PRESSURE MED AdvReac Nausea Uncoded 03/14/22 16:37 Family History Mother Dementia Alzheimer disease Hypertension Father Prostate cancer Surgical History History of basal cell carcinoma (BCC) excision Hx of hand surgery Hx of left inguinal hernia repair Social History Smoking Status: Current every day smoker tobacco type: cigarettes second hand exposure: Yes alcohol intake: never substance use type: does not use caffeine: Yes what type of physical activity do you participate in: none frequency: does not exercise ROS ROS ED Constitutional Constitutional ED: Denies fever(s) Eyes Eyes: Denies change in vision ENT ENT ED: Denies rhinorrhea or sore throat Cardiovascular Cardiovascular: Reports chest pain; Denies palpitations Respiratory/Chest Respiratory/Chest: Reports cough and dyspnea Gastrointestinal Gastrointestinal: Denies abdominal pain, diarrhea, nausea or vomiting Genitourinary Genitourinary ED: Denies dysuria Musculoskeletal Musculoskeletal: Denies myalgias Integumentary Denies rash Neurologic Neurologic: Denies headache(s) Psychiatric Psychiatric: Denies suicidal thoughts EXAM Physical Exam Const Vital Signs: 03/14/22 16:37 03/14/22 17:22 03/14/22 17:44 Temperature 99 F Temperature Source Temporal Pulse Rate 95 84 Respiratory Rate 22 H 28 H Respiratory Effort Short of Breath Labored Accessory Muscle Use Respiratory Pattern Tachypnea Blood Pressure 142/76 H 160/89 H Blood Pressure Mean 98 112 Pulse Ox 93 93 Oxygen Delivery Method Nasal Cannula Nasal Cannula Room Air Oxygen Flow Rate (L/min) 3 3 03/14/22 17:46 03/14/22 18:03 03/14/22 18:12 Temperature Temperature Source Pulse Rate 83 82 Respiratory Rate 22 H 29 H Respiratory Effort Respiratory Pattern Blood Pressure 137/93 H Blood Pressure Mean 107 Pulse Ox 94 95 Oxygen Delivery Method Nasal Cannula Nasal Cannula Oxygen Flow Rate (L/min) 4 4 03/14/22 19:00 03/14/22 20:01 Temperature Temperature Source Pulse Rate 83 83 Respiratory Rate 31 H 26 H Respiratory Effort Respiratory Pattern Blood Pressure 137/68 H 130/80 H Blood Pressure Mean 91 96 Pulse Ox 94 93 Oxygen Delivery Method Nasal Cannula Oxygen Flow Rate (L/min) 4 Positive well nourished and well developed General Appearance ED: well developed HEENT Reports normocephalic and head/scalp atraumatic Eyes PERRL and EOMs intact bilaterally Neck supple General: Negative for tenderness Chest Wall inspection of chest normal Resp normal respiratory effort Auscultation: wheezes and diminished lung sounds Cardio regular rate and regular rhythm GI non-tender and non-distended Palpation: soft; Negative for guarding or rebound tenderness present no CVA tenderness Extremity normal to inspection Neuro oriented x3 Sensorium / Orientation: alert Psych mental status grossly normal MDM MDM MDM Narrative Medical decision making narrative: Patient was given DuoNeb aerosol. CBC shows white count 29.4. Chemistries show BUN 19, creatinine 1.52. Glucose 133. Troponin and delta troponin negative. Chest x-ray read by myself and radiology shows lingular pneumonia. Patient was given Rocephin, Zithromax IV. Blood cultures were sent. He is requiring increasing oxygen by nasal cannula. He remains tachypneic with diminished breath sounds. Will discuss with hospitalist for admission. Lab Data Attestation: I reviewed the patient's lab results. Labs: Laboratory Results - last 24 hr 03/14/22 03/14/22 03/14/22 16:49 16:49 19:57 WBC 29.4 H RBC 5.33 Hgb 15.1 Hct 45.6 MCV 85.6 MCH 28.3 MCHC 33.1 RDW Std Deviation 41.9 RDW Coeff of Heather 13.3 Plt Count 205 MPV 11.9 Immature Gran % (Auto) 1.000 H Neut % (Auto) 89.3 H Lymph % (Auto) 4.4 L Carbon % (Auto) 4.9 Eos % (Auto) 0.2 Baso % (Auto) 0.2 Absolute Neuts (auto) 26.3 H Absolute Lymphs (auto) 1.29 Nucleated RBC % 0 Differential Comment SCANNED Sodium 138 Potassium 3.6 Chloride 101 Carbon Dioxide 31.0 Anion Gap 6 BUN 19 H Creatinine 1.52 H Estim Creat Clear Calc 47.81 Est GFR (MDRD) Af Amer 59 L Est GFR (MDRD) Non-Af 49 L BUN/Creatinine Ratio 12.5 Glucose 133 H Calcium 8.7 Troponin I High Sens 16 19 Radiography Diagnostic Testing: Clinical Impression(s) from Imaging Studies Chest X-Ray 03/14/22 17:33 IMPRESSION: Lingular pneumonia. COPD. Electronically Signed: Latasha Berrios MD at 18:46 EST Reading Location ID and State: [id number] / Tel , Service support , EKG Initial EKG: Attestation: I personally reviewed and interpreted this EKG as follows: Interpretation: Sinus Rhythm and No Acute Injury Pattern Discharge Plan Triage Chief Complaint: Shortness of Breath ED Provider: Aster Gomez Dx/Rx/DC Orders Clinical Impression: Pneumonia, Hypoxia Primary Care Provider: Paula Sainz Disposition Disposition: Acute Care Hospital [facility] Discharge Date/Time: 03/14/22 20:59
[2022-03-14 17:55] LABS: Absolute Lymphocyte Count 1.29 X10^3/uL (0.83-4.51); Absolute Neutrophil Count 26.3 X10^3/uL (2.0-7.7); Basophil# 0.06 X10^3/uL; Basophil% 0.2 % (0-1); Eosinophil# 0.05 X10^3/uL; Eosinophils% 0.2 % (0-5); Hematocrit 45.6 % (40-54); Hemoglobin 15.1 g/dL (13.0-16.5); Lymphocyte # 1.29 X10^3/ul (0.83-4.51); Lymphocyte % 4.4 % (19-41); Mean Corp Hgb Conc 33.1 g/dL (32-36); Mean Corpuscular Hgb 28.3 pg (27.0-32.0); Mean Corpuscular Volume 85.6 fL (80-94); Mean Platelet Vol. 11.9 fl (6.2-12.0); Monocyte# 1.45 X10^3/uL; Monocyte% 4.9 % (0-10); NRBC Flagged by Analyzer 0 % (0-5); Neutrophil # 26.31 X10^3/uL (2.7-7.7); Neutrophil % 89.3 % (47-70); POSITIVE DIFFERENTIAL YES; Platelet Count 205 K/mm3 (150-450); RBC Distribution Width CV 13.3 % (11.6-14.6); RBC Distribution Width SD 41.9 fl (35.1-43.9); Red Blood Count 5.33 M/mm3 (4.6-6.2); White Blood Count 29.4 K/mm3 (4.4-11.0)
[2022-03-14] MEDS: Albuterol 2.5 MG/3 ML VIAL.NEB. INHALATION ×3 (18:02)
[2022-03-14] MEDS: Ipratropium/Albuterol Sulfate 3 ML AMPUL.NEB INHALATION (18:02)
[2022-03-14 18:09] LABS: Differential Indicated SCAN CRITERIA MET
[2022-03-14 18:11] LABS: Anion Gap 6 (5-15); BUN 19 mg/dL (7-18); BUN/Creat Ratio 12.5 RATIO (10-20); Calcium,Total 8.7 mg/dL (8.5-10.1); Chloride 101 mmol/L (98-107); Creatinine, Serum 1.52 mg/dL (0.70-1.30); EST Glomerular Filtration Rate 49 mL/min (>60); Est Glom Filt Rate - Afr Amer 59 mL/min (>60); Estimated Creatinine Clearance 47.81 ml/min; Glucose 133 mg/dL (74-106); Potassium 3.6 mmol/L (3.5-5.1); Sodium Level 138 mmol/L (136-145); Troponin-I HS (w/2H Reflex) 16 pg/mL (3.0-78.0)
[2022-03-14 18:45] LABS: Differential Comment SCANNED
[2022-03-14 19:51] LABS: Reflex Troponin-HS? (from REC) Y
--- NOTE | 2022-03-14 20:07 | HP.PCM.HOS_ITS ---
HPI - General General Date of Admission: 03/14/22 Date of Service: 03/14/22 Chief Complaint: Shortness of breath HPI Narrative SEBASTIEN GLOVER, is a 66 M with a significant history of tobacco abuse; as COPD on baseline home oxygen of 2 L; and hypertension who presents emergency department with 2-week history of progressively worsening shortness of breath. Associated with symptom is a productive cough of creamy sputum; nasal congestion; chest pain and malaise. Also he reports chills and poor appetite. He has been wheezing. [facility] Medical History (Updated 03/14/22 @ 21:27 by Charlette Goode) COPD (chronic obstructive pulmonary disease) COPD exacerbation History of basal cell carcinoma (BCC) Hypertension Mass of skin of back On supplemental oxygen therapy Home Medications amlodipine 10 mg tablet 10 mg PO DAILY blood pressure 04/14/18 [History Last Taken 03/14/22 05:00] ascorbic acid (vitamin C) 500 mg capsule 500 mg PO DAILY supplement 04/14/18 [History Last Taken 03/14/22 12:00] aspirin 81 mg chewable tablet 81 mg PO QODAY [place] 04/14/18 [History Last Taken 03/13/22] cholecalciferol (vitamin D3) 50 mcg (2,000 unit) capsule 2,000 unit PO DAILY vitamin 04/14/18 [History Last Taken 03/14/22 12:00] cyanocobalamin (vitamin B-12) 1,000 mcg capsule 1,000 mcg PO QODAY vitamin 04/14/18 [History Last Taken Unknown] folic acid 1 mg tablet 1 mg PO DAILY supplement 04/14/18 [History Last Taken 03/14/22 12:00] hydrochlorothiazide 25 mg tablet 25 mg PO DAILY blood pressure 04/14/18 [History Last Taken Unknown] potassium chloride 10 mEq tablet,extended release(part/cryst) 10 meq PO DAILY supplement 04/14/18 [History Last Taken 03/13/22 12:00] pyridoxine (vitamin B6) 100 mg tablet 100 mg PO DAILY vitamin 04/14/18 [History Last Taken 03/14/22 12:00] albuterol sulfate 0.63 mg/3 mL solution for nebulization 0.63 mg inhalation BID copd 12/17/19 [History Last Taken 03/14/22 14:00] atorvastatin 10 mg tablet 10 mg PO DAILY cholesterol 12/17/19 [History Last Taken 03/14/22 05:00] benazepril 10 mg tablet 60 mg PO DAILY blood pressure 12/17/19 [History Last Taken 03/14/22 05:00] bupropion HCl 100 mg tablet 100 mg PO BID mood 12/17/19 [History Last Taken Unknown] famotidine 20 mg tablet 20 mg PO DAILY PRN reflux 12/17/19 [History Last Taken 01/01/20] sertraline 50 mg tablet 75 mg PO DAILY mood 12/17/19 [History Last Taken 03/14/22 05:00] fluticasone furoate 200 mcg-vilanterol 25 mcg/dose inhalation powder 1 ea IH DAILY copd 12/25/19 [History Last Taken 03/14/22 12:00] hydralazine 25 mg tablet 25 mg PO TID blood pressure 03/14/22 [History Last Taken 03/14/22 12:00] magnesium 200 mg tablet 400 mg PO DAILY supplement 03/14/22 [History Last Taken 03/14/22 12:00] umeclidinium 62.5 mcg/actuation blister powder for inhalation (Incruse Ellipta) 1 inh inhalation DAILY COPD 03/14/22 [History Last Taken 03/14/22 12:00] Allergy/AdvReac Type Severity Reaction Status Date / Time BLOOD PRESSURE MED AdvReac Nausea Uncoded 03/14/22 21:29 Family History Mother Dementia Alzheimer disease Hypertension Father Prostate cancer Surgical History History of basal cell carcinoma (BCC) excision Hx of hand surgery Hx of left inguinal hernia repair Social History Smoking Status: Current every day smoker tobacco type: cigarettes second hand exposure: Yes alcohol intake: never substance use type: does not use caffeine: Yes what type of physical activity do you participate in: none frequency: does not exercise ROS ROS Narrative Pertinent positives and pertinent negatives as noted in HPI. All other systems were reviewed and are negative Vital Signs Vital Signs Vital Signs: 03/14/22 16:37 03/14/22 17:22 03/14/22 17:44 Temperature 99 F Temperature Source Temporal Pulse Rate 95 84 Respiratory Rate 22 H 28 H Respiratory Effort Short of Breath Labored Accessory Muscle Use Respiratory Pattern Tachypnea Blood Pressure 142/76 H 160/89 H Blood Pressure Mean 98 112 Pulse Ox 93 93 Oxygen Delivery Method Nasal Cannula Nasal Cannula Room Air Oxygen Flow Rate (L/min) 3 3 03/14/22 17:46 03/14/22 18:03 03/14/22 18:12 Temperature Temperature Source Pulse Rate 83 82 Respiratory Rate 22 H 29 H Respiratory Effort Respiratory Pattern Blood Pressure 137/93 H Blood Pressure Mean 107 Pulse Ox 94 95 Oxygen Delivery Method Nasal Cannula Nasal Cannula Oxygen Flow Rate (L/min) 4 4 03/14/22 19:00 03/14/22 20:01 Temperature Temperature Source Pulse Rate 83 83 Respiratory Rate 31 H 26 H Respiratory Effort Respiratory Pattern Blood Pressure 137/68 H 130/80 H Blood Pressure Mean 91 96 Pulse Ox 94 93 Oxygen Delivery Method Nasal Cannula Oxygen Flow Rate (L/min) 4 Weight Weight: 90.718 kg Body Mass Index (BMI) 29.5 Physical Exam Narrative Physical exam: General: Well-nourished, well-developed. Head: Normocephalic, atraumatic, no tenderness Eyes: Vision is grossly intact. EOMI ENT, no trauma, moist mucous membranes, no rhinorrhea Neck: Nontender, No thyromegaly. CVS: Regular rate and rhythm. S1-S2 present. No murmur, gallop or rub. Respiratory : Tachypnea, diminished, wheezing. Abdomen: Soft, nontender, nondistended, normal bowel sounds, no masses : Deferred Back: Nontender, no CVA tenderness, no midline spinal tenderness, deformities, step-offs Extremities: Nontender full range of motion, no trauma Skin: Normal color, no trauma, abrasions Neuro: Alert, oriented, cranial nerves II through XII grossly intact. Psychiatry: Normal mood. Normal affect. Not depressed. Not anxious. Results Lab / Micro Data Result Diagrams: 03/14/22 16:49 03/14/22 16:49 Labs: Laboratory Results - last 24 hr 03/14/22 16:49: WBC 29.4 H, RBC 5.33, Hgb 15.1, Hct 45.6, MCV 85.6, MCH 28.3, MCHC 33.1, RDW Std Deviation 41.9, RDW Coeff of Heather 13.3, Plt Count 205, MPV 11.9, Immature Gran % (Auto) 1.000 H, Neut % (Auto) 89.3 H, Lymph % (Auto) 4.4 L , [place] % (Auto) 4.9, Eos % (Auto) 0.2, Baso % (Auto) 0.2, Absolute Neuts (auto) 26.3 H, Absolute Lymphs (auto) 1.29, Nucleated RBC % 0, Differential Comment SCANNED 03/14/22 16:49: Sodium 138, Potassium 3.6, Chloride 101, Carbon Dioxide 31.0, Anion Gap 6, BUN 19 H, Creatinine 1.52 H, Estim Creat Clear Calc 47.81, Est GFR (MDRD) Af Amer 59 L, Est GFR (MDRD) Non-Af 49 L, BUN/Creatinine Ratio 12.5, Glucose 133 H, Calcium 8.7, Troponin I High Sens 16 Micro: Microbiology 03/14/22 17:48 Nasal Secretion SARS-CoV-2 & FLU Antigen (Rapid) - Final Radiology Impression Chest X-Ray 03/14/22 17:33 IMPRESSION: Lingular pneumonia. COPD. Electronically Signed: Latasha Berrios MD at 18:46 EST Reading Location ID and State: [id number] / Tel , Service support , Assessment & Plan Assessment/Plan (1) COPD exacerbation: (2) Pneumonia: (3) Hypertension: PLAN: Plan Pneumonia Impression of chest x-ray by radiologist: Lingular pneumonia. Chest x-ray was visualized and independently interpreted and I agree with radiologist interpretation Blood culture ?2 is pending CBC showed white count of 29,400 with bandemia of 1%; neutrophilia of 89.3% and lymphopenia of 4.4%. Antibiotics: Started on Rocephin and azithromycin at the emergency department and continued. Legionella urine antigen and strep pneumoniae urine antigen ordered. Acute exacerbation of COPD With wheezes and diminished respiration. Scheduled DuoNeb Albuterol as needed Solu-Medrol ordered. Antibiotics as above Titrate supplemental oxygen to maintain oxygen saturation of at least 90% Monitor BMP and CBC Hypertension Blood pressure is not within goal Hydrochlorothiazide, hydralazine and amlodipine continued. Trend blood pressure and adjust blood pressure medications. DVT prophylaxis Subcutaneous Lovenox ordered. Charges/Coding Visit Charges Inpatient E&M: 62005 Init Hosp L3
[2022-03-14] MEDS: Ceftriaxone 1 GM/50 ML BAG IV (20:18)
[2022-03-14 20:29] LABS: Troponin-I HS 19 pg/mL (3.0-78.0)
[2022-03-14] MEDS: Fluticasone 0.05% 1 SPRAY NASAL.SRY NASAL (22:07)
[2022-03-14] MEDS: 0.9% Saline Lock 10 ML Syringe IV (22:07)
[2022-03-14] MEDS: MethylPREDNISolone 125 MG/2 ML Vial IV (22:11)
[2022-03-15] VITALS (14 sets, daily range): BP systolic 111–141; BP diastolic 57–85; PULSE 63–91; RESP 20–26; TEMP 36.6–37.2; O2SAT 90–96
[2022-03-15] MEDS: hydrALAZINE 25 MG Tablet PO ×3 (05:40→20:22)
[2022-03-15] MEDS: 0.9% Saline Lock 10 ML Syringe IV ×3 (05:41→20:19)
[2022-03-15 06:27] LABS: Absolute Lymphocyte Count 0.89 X10^3/uL (0.83-4.51); Basophil# 0.03 X10^3/uL; Basophil% 0.1 % (0-1); Hematocrit 42.5 % (40-54); Hemoglobin 13.8 g/dL (13.0-16.5); Lymphocyte # 0.89 X10^3/ul (0.83-4.51); Lymphocyte % 3.6 % (19-41); Mean Corp Hgb Conc 32.5 g/dL (32-36); Mean Corpuscular Hgb 28.2 pg (27.0-32.0); Mean Corpuscular Volume 86.7 fL (80-94); Mean Platelet Vol. 12.3 fl (6.2-12.0); Monocyte# 0.28 X10^3/uL; Monocyte% 1.1 % (0-10); NRBC Flagged by Analyzer 0 % (0-5); Neutrophil # 23.03 X10^3/uL (2.7-7.7); Neutrophil % 94.3 % (47-70); POSITIVE DIFFERENTIAL YES; Platelet Count 191 K/mm3 (150-450); RBC Distribution Width CV 13.3 % (11.6-14.6); RBC Distribution Width SD 42.4 fl (35.1-43.9); White Blood Count 24.5 K/mm3 (4.4-11.0)
[2022-03-15 06:29] LABS: Differential Indicated SCAN CRITERIA MET
[2022-03-15 06:58] LABS: Anion Gap 8 (5-15); BUN 24 mg/dL (7-18); BUN/Creat Ratio 18.2 RATIO (10-20); Calcium,Total 8.5 mg/dL (8.5-10.1); Chloride 100 mmol/L (98-107); Creatinine, Serum 1.32 mg/dL (0.70-1.30); EST Glomerular Filtration Rate 58 mL/min (>60); Est Glom Filt Rate - Afr Amer 70 mL/min (>60); Estimated Creatinine Clearance 55.05 ml/min; Glucose 242 mg/dL (74-106); Magnesium 2.4 mg/dL (1.6-2.6); Potassium 3.6 mmol/L (3.5-5.1); Sodium Level 136 mmol/L (136-145)
[2022-03-15 07:02] LABS: Differential Comment SCANNED
[2022-03-15] MEDS: Ipratropium/Albuterol Sulfate 3 ML AMPUL.NEB INHALATION ×4 (07:28→20:15)
[2022-03-15] MEDS: Folic Acid 1 MG Tablet PO (07:59)
[2022-03-15] MEDS: Aspirin 81 MG TAB.CHEW PO (07:59)
--- NOTE | 2022-03-15 08:31 | PCM.PN.HOSP ---
Subjective Subjective Breathing better overall. Objective Data Objective Data Vital Signs: Vital Signs Temp Pulse Resp BP Pulse Ox O2 Del Method O2 Flow Rate 36.6 C 63 20 H 127/85 H 93 Nasal Cannula 3 03/15/22 07:46 03/15/22 07:46 03/15/22 07:46 03/15/22 07:46 03/15/22 07:46 03/15/22 07:49 03/15/22 07:49 Oxygen Flow Rate (L/min) 3 Oxygen Delivery Method Nasal Cannula Weight: 90.4 kg Body Mass Index (BMI) 29.4 Intake & Output: Intake and Output for Last 24 Hours 03/13/22 03/14/22 03/15/22 23:59 23:59 23:59 Intake Total 305 / 305 Balance 305 / 305 Lab / Micro Data Result Diagrams: 03/15/22 05:29 03/15/22 05:29 Labs: Laboratory Results - last 24 hr 03/14/22 16:49: WBC 29.4 H, RBC 5.33, Hgb 15.1, Hct 45.6, MCV 85.6, MCH 28.3, MCHC 33.1, RDW Std Deviation 41.9, RDW Coeff of Heather 13.3, Plt Count 205, MPV 11.9, Immature Gran % (Auto) 1.000 H, Neut % (Auto) 89.3 H, Lymph % (Auto) 4.4 L, [place] % (Auto) 4.9, Eos % (Auto) 0.2, Baso % (Auto) 0.2, Absolute Neuts (auto) 26.3 H, Absolute Lymphs (auto) 1.29, Nucleated RBC % 0, Differential Comment SCANNED 03/14/22 16:49: Sodium 138, Potassium 3.6, Chloride 101, Carbon Dioxide 31.0, Anion Gap 6, BUN 19 H, Creatinine 1.52 H, Estim Creat Clear Calc 47.81, Est GFR (MDRD) Af Amer 59 L, Est GFR (MDRD) Non-Af 49 L, BUN/Creatinine Ratio 12.5, Glucose 133 H, Calcium 8.7, Troponin I High Sens 16 03/14/22 19:57: Troponin I High Sens 19 03/15/22 05:29: WBC 24.5 H, RBC 4.90, Hgb 13.8, Hct 42.5, MCV 86.7, MCH 28.2, MCHC 32.5, RDW Std Deviation 42.4, RDW Coeff of Heather 13.3, Plt Count 191, MPV 12.3 H, Immature Gran % (Auto) 0.900, Neut % (Auto) 94.3 H, Lymph % (Auto) 3.6 L, [place] % (Auto) 1.1, Eos % (Auto) 0.0, Baso % (Auto) 0.1, Absolute Neuts (auto) 23.0 H, Absolute Lymphs (auto) 0.89, Nucleated RBC % 0, Differential Comment SCANNED 03/15/22 05:29: Sodium 136, Potassium 3.6, Chloride 100, Carbon Dioxide 28.0, Anion Gap 8, BUN 24 H, Creatinine 1.32 H, Estim Creat Clear Calc 55.05, Est GFR (MDRD) Af Amer 70, Est GFR (MDRD) Non-Af 58 L, BUN/Creatinine Ratio 18.2, Glucose 242 H, Calcium 8.5, Magnesium 2.4 Micro: Microbiology 03/15/22 04:10 Urine, Clean Catch Legionella Antigen - Final 03/15/22 04:10 Urine, Clean Catch Streptococcus pneumoniae Antigen (M - Final 03/14/22 17:48 Nasal Secretion SARS-CoV-2 & FLU Antigen (Rapid) - Final Radiography Diagnostic Testing: Radiology Impression Chest X-Ray 03/14/22 17:33 IMPRESSION: Lingular pneumonia. COPD. Electronically Signed: Latasha Berrios MD at 18:46 EST Reading Location ID and State: [id number] / Tel , Service support , Physical Exam Const alert and no apparent distress Constitutional Narrative: Diaphoretic HEENT head/scalp atraumatic and moist oral mucous membranes Eyes PERRL Resp normal respiratory effort and no retractions Cardio regular rate, regular rhythm, S1 normal heart sound and S2 normal heart sound GI normal to inspection, nondistended, normoactive bowel sounds, soft to palpation, non-tender and non-distended Extremity normal to inspection Psych affect normal Assessment & Plan Assessment/Plan (1) COPD exacerbation: PLAN: Acute exacerbation of COPD With wheezes and diminished respiration. Scheduled DuoNeb Albuterol as needed Solu-Medrol ordered. Antibiotics as above Titrate supplemental oxygen to maintain oxygen saturation of at least 90% (2) Pneumonia: PLAN: Impression of chest x-ray by radiologist: Lingular pneumonia. Chest x-ray was visualized and independently interpreted and I agree with radiologist interpretation Blood culture ?2 is pending CBC showed white count of 29,400 with bandemia of 1%; neutrophilia of 89.3% and lymphopenia of 4.4%. Antibiotics: Started on Rocephin and azithromycin at the emergency department and continued. Legionella urine antigen and strep pneumoniae urine antigen ordered. PLAN: Plan Hypertension: Blood pressure is not within goal. Hydrochlorothiazide, hydralazine and amlodipine continued. Trend blood pressure and adjust blood pressure medications. DVT prophylaxis Subcutaneous Lovenox ordered. Charges/Coding Visit Charges Inpatient E&M: 01119 Subs Hosp L2
[2022-03-15] MEDS: Fluticasone 0.05% 1 SPRAY NASAL.SRY NASAL ×2 (10:09→20:21)
[2022-03-15] MEDS: Potassium Chloride Oral Tablet 10 MEQ PO (10:10)
[2022-03-15] MEDS: hydroCHLOROthiazide 25 MG Tablet PO (10:10)
[2022-03-15] MEDS: amLODIPine 10 MG Tablet PO (10:11)
[2022-03-15] MEDS: Magnesium Chloride 64 MG Delay Rel.Tablet PO (10:11)
[2022-03-15] MEDS: Enoxaparin 40 MG/0.4 ML Syringe SC (10:11)
[2022-03-15] MEDS: Ascorbic Acid 500 MG Tablet PO (10:12)
[2022-03-15] MEDS: Cyanocobalamin 500 MCG Tablet 1000 MCG PO (10:12)
[2022-03-15] MEDS: Cholecalciferol (VIT D3) 25 MCG TABLET (1,000 UNITS) 50 MCG PO (10:12)
[2022-03-15] MEDS: Pyridoxine HCl 100 MG Tablet PO (10:12)
[2022-03-15] MEDS: buPROPion (SR) 100 MG TABLET.SA PO ×2 (10:13→20:22)
[2022-03-15] MEDS: Lisinopril 20 MG Tablet 60 MG PO (10:13)
[2022-03-15] MEDS: Sertraline 50 MG Tablet 75 MG PO (10:13)
[2022-03-15] MEDS: Ensure Plus High Protein 120 ML LIQUID PO ×4 (10:24→20:24)
--- NOTE | 2022-03-15 12:31 | NURSING ---
FAMILY CAME OUT TO DESK TO STATE THAT PT APPEARED TO HAVE MORE TROUBLE BREATHING. VS WERE STABLE, BUT DID INCREASE O2 TO 4LNC. PT DENIED NEED FOR BREATHING TX WHEN OFFERED.
[2022-03-15] MEDS: Ceftriaxone 1 GM/50 ML BAG IV (20:16)
[2022-03-15] MEDS: Atorvastatin Calcium 10 MG Tablet PO (20:23)
[2022-03-16] VITALS (18 sets, daily range): BP systolic 124–142; BP diastolic 75–90; PULSE 67–97; RESP 20–30; TEMP 36.5–37.1; O2SAT 80–95
--- NOTE | 2022-03-16 04:51 | NURSING ---
Patient was very tachypneic and short of breath after getting to the bathroom. Pulse ox in mid 80s. Instructed to use urinal instead of getting to bathroom for now until he starts to feel a little better.
[2022-03-16] MEDS: hydrALAZINE 25 MG Tablet PO ×3 (05:13→21:10)
[2022-03-16] MEDS: Benzonatate 100 MG Capsule PO (05:14)
[2022-03-16] MEDS: Acetaminophen 325 MG Tablet 650 MG PO (05:14)
[2022-03-16] MEDS: 0.9% Saline Lock 10 ML Syringe IV ×3 (05:18→21:11)
[2022-03-16] MEDS: Ipratropium/Albuterol Sulfate 3 ML AMPUL.NEB INHALATION ×5 (05:26→23:25)
--- NOTE | 2022-03-16 06:39 | RAD_ITS ---
STUDY: X-RAY CHEST REASON FOR EXAM: Male, 66 years old. Pneumonia with increased oxygen need. TECHNIQUE: Single frontal view of the chest. COMPARISON: March 14, 2022. FINDINGS: Hyperexpansion with patchy left lower lobe opacity, unchanged from prior study. There is no demonstrated pleural abnormality. Stable cardiomegaly. Normal mediastinum and clementine. Normal visualized pulmonary arteries. Aortic tortuosity with calcification unchanged. Normal visualized thoracic spine. Normal visualized ribs, clavicles, and shoulders. There is no demonstrated abnormality of the visualized soft tissue structures of the upper abdomen. RAD/Chest 1 View (Portable) IMPRESSION: Stable cardiomegaly, hyperinflation and patchy left lower lobe opacity. No new or emergent finding. Electronically Signed: Magen Dhaliwal, at 9:21 EST ,
[2022-03-16 07:01] LABS: Absolute Lymphocyte Count 1.63 X10^3/uL (0.83-4.51); Absolute Neutrophil Count 24.2 X10^3/uL (2.0-7.7); Basophil# 0.07 X10^3/uL; Basophil% 0.3 % (0-1); Hematocrit 42.1 % (40-54); Hemoglobin 13.2 g/dL (13.0-16.5); Lymphocyte # 1.63 X10^3/ul (0.83-4.51); Mean Corp Hgb Conc 31.4 g/dL (32-36); Mean Corpuscular Hgb 27.2 pg (27.0-32.0); Mean Corpuscular Volume 86.8 fL (80-94); Mean Platelet Vol. 12.1 fl (6.2-12.0); Monocyte% 1.9 % (0-10); NRBC Flagged by Analyzer 0 % (0-5); Neutrophil # 24.16 X10^3/uL (2.7-7.7); Neutrophil % 89.6 % (47-70); POSITIVE DIFFERENTIAL YES; Platelet Count 218 K/mm3 (150-450); RBC Distribution Width CV 13.2 % (11.6-14.6); Red Blood Count 4.85 M/mm3 (4.6-6.2)
[2022-03-16 07:05] LABS: Differential Indicated SCAN CRITERIA MET
[2022-03-16 07:20] LABS: Differential Comment SCANNED
[2022-03-16 07:23] LABS: Anion Gap 4 (5-15); BUN 39 mg/dL (7-18); BUN/Creat Ratio 27.9 RATIO (10-20); Chloride 100 mmol/L (98-107); EST Glomerular Filtration Rate 54 mL/min (>60); Est Glom Filt Rate - Afr Amer 65 mL/min (>60); Glucose 187 mg/dL (74-106); Potassium 3.7 mmol/L (3.5-5.1); Sodium Level 135 mmol/L (136-145)
--- NOTE | 2022-03-16 07:42 | PN.HOSP_ITS ---
Subjective Subjective Coughing up phlegm. Did have an paroxysmal of cough that caused him to pass out at times. Coughing gets worse in the night. When he lays flat. Objective Data Objective Data Vital Signs: Vital Signs Temp Pulse Resp BP Pulse Ox O2 Del Method O2 Flow Rate 36.5 C L 67 26 H 142/90 H 93 Nasal Cannula 5 03/16/22 04:53 03/16/22 07:00 03/16/22 05:36 03/16/22 05:13 03/16/22 07:00 03/16/22 07:00 03/16/22 07:00 Oxygen Flow Rate (L/min) 5 Oxygen Delivery Method Nasal Cannula Weight: 90.4 kg Body Mass Index (BMI) 29.4 Intake & Output: Intake and Output for Last 24 Hours 03/14/22 03/15/22 03/16/22 23:59 23:59 23:59 Intake Total 305 / 305 50 / 50 255 / 255 Balance 305 / 305 50 / 50 255 / 255 Lab / Micro Data Result Diagrams: 03/16/22 06:10 03/16/22 06:10 Labs: Laboratory Results - last 24 hr 03/16/22 06:10: WBC 27.0 H, RBC 4.85, Hgb 13.2, Hct 42.1, MCV 86.8, MCH 27.2, MCHC 31.4 L, RDW Std Deviation 42.0, RDW Coeff of Heather 13.2, Plt Count 218, MPV 12.1 H, Immature Gran % (Auto) 2.200 H, Neut % (Auto) 89.6 H, Lymph % (Auto) 6.0 L, [place] % (Auto) 1.9, Eos % (Auto) 0.0, Baso % (Auto) 0.3, Absolute Neuts (auto) 24.2 H, Absolute Lymphs (auto) 1.63, Nucleated RBC % 0, Differential Comment SCANNED 03/16/22 06:10: Sodium 135 L, Potassium 3.7, Chloride 100, Carbon Dioxide 31.0, Anion Gap 4 L, BUN 39 H, Creatinine 1.40 H, Estim Creat Clear Calc 51.90, Est GFR (MDRD) Af Amer 65, Est GFR (MDRD) Non-Af 54 L, BUN/Creatinine Ratio 27.9 H, Glucose 187 H, Calcium 9.0 Micro: Microbiology 03/15/22 04:10 Urine, Clean Catch Legionella Antigen - Final 03/15/22 04:10 Urine, Clean Catch Streptococcus pneumoniae Antigen (M - Final 03/14/22 17:48 Nasal Secretion SARS-CoV-2 & FLU Antigen (Rapid) - Final Physical Exam HEENT head/scalp atraumatic and moist oral mucous membranes Resp Resp Narrative: Diminished. Faint wheezing bilaterally. Cardio regular rate, regular rhythm, S1 normal heart sound and S2 normal heart sound GI normal to inspection, nondistended, normoactive bowel sounds, soft to palpation and non-tender Extremity normal to inspection Psych affect normal Assessment & Plan Assessment/Plan (1) COPD exacerbation: PLAN: Acute exacerbation of COPD With wheezes and diminished respiration. Scheduled DuoNeb Albuterol as needed Solu-Medrol ordered. Antibiotics as above Titrate supplemental oxygen to maintain oxygen saturation of at least 90% (2) Pneumonia: PLAN: Impression of chest x-ray by radiologist: Lingular pneumonia. Blood culture ?2 is pending CBC showed white count of 29,400 with bandemia of 1%; neutrophilia of 89.3% and lymphopenia of 4.4%. Antibiotics: Started on Rocephin and azithromycin at the emergency department and continued. Legionella urine antigen and strep pneumoniae urine antigen negative Check sputum culture PLAN: Plan Hypertension: Blood pressure is not within goal. Hydrochlorothiazide, hydralazine and amlodipine continued. Trend blood pressure and adjust blood pressure medications. DVT prophylaxis Subcutaneous Lovenox ordered. Discussed with patient's family at bedside. Charges/Coding Visit Charges Inpatient E&M: 97648 Subs Hosp L2
[2022-03-16] MEDS: hydroCHLOROthiazide 25 MG Tablet PO (08:36)
[2022-03-16] MEDS: Folic Acid 1 MG Tablet PO (08:36)
[2022-03-16] MEDS: Enoxaparin 40 MG/0.4 ML Syringe SC (08:37)
[2022-03-16] MEDS: Lisinopril 20 MG Tablet 60 MG PO (08:37)
[2022-03-16] MEDS: Potassium Chloride Oral Tablet 10 MEQ PO (08:37)
[2022-03-16] MEDS: Fluticasone 0.05% 1 SPRAY NASAL.SRY NASAL ×2 (08:37→21:17)
[2022-03-16] MEDS: amLODIPine 10 MG Tablet PO (08:37)
[2022-03-16] MEDS: Magnesium Chloride 64 MG Delay Rel.Tablet PO (08:37)
[2022-03-16] MEDS: buPROPion (SR) 100 MG TABLET.SA PO ×2 (08:38→21:11)
[2022-03-16] MEDS: Ascorbic Acid 500 MG Tablet PO (08:38)
[2022-03-16] MEDS: Pyridoxine HCl 100 MG Tablet PO (08:38)
[2022-03-16] MEDS: Sertraline 50 MG Tablet 75 MG PO (08:38)
[2022-03-16] MEDS: Cholecalciferol (VIT D3) 25 MCG TABLET (1,000 UNITS) 50 MCG PO (08:38)
[2022-03-16] MEDS: Ensure Plus High Protein 120 ML LIQUID PO ×4 (08:47→21:18)
--- NOTE | 2022-03-16 10:30 | CASEMGMT ---
PABLITO TYLER Assessment: Face to Face with pt for initial transition planning/care coordination assessment. RN JAYSON introduced self and role at [facility], pt voices understanding and consents to assessment. Pt is A/O x4 and answers all questions appropriately at this time. Pt lying in bed in no distress with oxygen on. Care providers, pharmacy, and demographics verified/updated. Admitting Dx: pna PCP:Alistair Specialists:henry Segal Preferred Pharmacy: [facility] Pres[facility] Benefit: yes LNOK: Mayela Montes, Living Arrangements: Pt lives with in a single story house with 3 steps to enter without a rail. Pt reports he is mostly I in ADL's it just takes some time. Pt states is able to assist if needed. Pt denies concerns at home. Transportation: Pt drives self and denies concerns with transportation. DME/HHC/SNF: Pt has a nebulizer, pox, portable oxygen and concentrator at home. Pt is unsure of the oxygen company who provides his oxygen. States he wears 2L during the day and as needed. Pt denies hx of HHC or SNF stays. Pt states no concerns with going home at time of dc. TC to 's office, spoke with Padmini, she states pt gets his oxygen from [employer]. Will call to verify rx. Pt states no further concerns/needs. CM to follow. Advised pt to ask CM if any further question/concerns/needs arise, voices understanding. Pt Goal: Home Plan: Home, follow for increased oxygen needs.
[2022-03-16] MEDS: guaiFENesin/Codeine 5 ML UDC 10 ML PO (21:11)
[2022-03-16] MEDS: Atorvastatin Calcium 10 MG Tablet PO (21:11)
[2022-03-16] MEDS: MELATONIN 3 MG TABLET PO (21:11)
[2022-03-16] MEDS: Ceftriaxone 1 GM/50 ML BAG IV (21:11)
[2022-03-17] VITALS (12 sets, daily range): BP systolic 120–144; BP diastolic 69–88; PULSE 72–89; RESP 18–20; TEMP 36.4–37.1; O2SAT 93–94
[2022-03-17] MEDS: Ipratropium/Albuterol Sulfate 3 ML AMPUL.NEB INHALATION ×4 (02:50→23:27)
[2022-03-17] MEDS: hydrALAZINE 25 MG Tablet PO ×3 (04:35→21:13)
[2022-03-17] MEDS: guaiFENesin/Codeine 5 ML UDC 10 ML PO ×2 (04:35→23:00)
[2022-03-17] MEDS: 0.9% Saline Lock 10 ML Syringe IV ×2 (04:36→13:44)
[2022-03-17 05:17] LABS: Absolute Lymphocyte Count 1.32 X10^3/uL (0.83-4.51); Absolute Neutrophil Count 20.1 X10^3/uL (2.0-7.7); Basophil# 0.06 X10^3/uL; Basophil% 0.3 % (0-1); Hemoglobin 13.3 g/dL (13.0-16.5); Lymphocyte # 1.32 X10^3/ul (0.83-4.51); Lymphocyte % 5.8 % (19-41); Mean Corp Hgb Conc 30.9 g/dL (32-36); Mean Corpuscular Hgb 27.3 pg (27.0-32.0); Mean Corpuscular Volume 88.1 fL (80-94); Mean Platelet Vol. 12.3 fl (6.2-12.0); Monocyte# 0.71 X10^3/uL; Monocyte% 3.1 % (0-10); NRBC Flagged by Analyzer 0 % (0-5); Neutrophil # 20.12 X10^3/uL (2.7-7.7); Neutrophil % 87.8 % (47-70); POSITIVE DIFFERENTIAL YES; Platelet Count 265 K/mm3 (150-450); RBC Distribution Width CV 13.2 % (11.6-14.6); Red Blood Count 4.88 M/mm3 (4.6-6.2); White Blood Count 22.9 K/mm3 (4.4-11.0)
[2022-03-17 05:23] LABS: Differential Indicated SCAN CRITERIA MET
[2022-03-17 05:44] LABS: Differential Comment SCANNED
[2022-03-17 05:45] LABS: Anion Gap 8 (5-15); BUN 38 mg/dL (7-18); BUN/Creat Ratio 26.6 RATIO (10-20); Calcium,Total 9.1 mg/dL (8.5-10.1); Chloride 101 mmol/L (98-107); Creatinine, Serum 1.43 mg/dL (0.70-1.30); EST Glomerular Filtration Rate 53 mL/min (>60); Est Glom Filt Rate - Afr Amer 64 mL/min (>60); Estimated Creatinine Clearance 50.81 ml/min; Glucose 140 mg/dL (74-106); Potassium 3.5 mmol/L (3.5-5.1); Sodium Level 138 mmol/L (136-145)
[2022-03-17] MEDS: Aspirin 81 MG TAB.CHEW PO (07:49)
[2022-03-17] MEDS: Folic Acid 1 MG Tablet PO (07:49)
--- NOTE | 2022-03-17 08:10 | PN.HOSP_ITS ---
Subjective Subjective Feeling better. Breathing better. Slept well with the codeine cough syrup. Objective Data Objective Data Vital Signs: Vital Signs Temp Pulse Resp BP Pulse Ox O2 Del Method O2 Flow Rate 36.6 C 87 18 125/75 H 94 Nasal Cannula 4 03/17/22 04:34 03/17/22 07:01 03/17/22 07:01 03/17/22 04:35 03/17/22 07:01 03/17/22 07:43 03/17/22 07:43 Oxygen Flow Rate (L/min) 4 Oxygen Delivery Method Nasal Cannula Weight: 90.4 kg Body Mass Index (BMI) 29.4 Intake & Output: Intake and Output for Last 24 Hours 03/15/22 03/16/22 03/17/22 23:59 23:59 23:59 Intake Total 50 50 930 / 930 Balance 50 50 930 / 930 Lab / Micro Data Result Diagrams: 03/17/22 04:32 03/17/22 04:32 Labs: Laboratory Results - last 24 hr 03/17/22 04:32: WBC 22.9 H, RBC 4.88, Hgb 13.3, Hct 43.0, MCV 88.1, MCH 27.3, MCHC 30.9 L, RDW Std Deviation 43.0, RDW Coeff of Heather 13.2, Plt Count 265, MPV 12.3 H, Immature Gran % (Auto) 3.000 H, Neut % (Auto) 87.8 H, Lymph % (Auto) 5.8 L, [place] % (Auto) 3.1, Eos % (Auto) 0.0, Baso % (Auto) 0.3, Absolute Neuts (auto) 20.1 H, Absolute Lymphs (auto) 1.32, Nucleated RBC % 0, Differential Comment SCANNED 03/17/22 04:32: Sodium 138, Potassium 3.5, Chloride 101, Carbon Dioxide 29.0, Anion Gap 8, BUN 38 H, Creatinine 1.43 H, Estim Creat Clear Calc 50.81, Est GFR (MDRD) Af Amer 64, Est GFR (MDRD) Non-Af 53 L, BUN/Creatinine Ratio 26.6 H, Glucose 140 H, Calcium 9.1 Micro: Microbiology 03/14/22 20:09 Blood Culture (Wb) - Anticubital Left Blood Culture - Preliminary No growth in 48 hours. 03/14/22 20:10 Blood Culture (Wb) - Anticubital Right Blood Culture - Preliminary No growth in 48 hours. 03/15/22 04:10 Urine, Clean Catch Legionella Antigen - Final 03/15/22 04:10 Urine, Clean Catch Streptococcus pneumoniae Antigen (M - Final 03/14/22 17:48 Nasal Secretion SARS-CoV-2 & FLU Antigen (Rapid) - Final Radiography Diagnostic Testing: Radiology Impression Chest X-Ray 03/16/22 06:39 IMPRESSION: Stable cardiomegaly, hyperinflation and patchy left lower lobe opacity. No new or emergent finding. Electronically Signed: Magen Dhaliwal, at 9:21 EST , Physical Exam Const alert and no apparent distress Resp normal respiratory effort Resp Narrative: Coarse breath sounds with faint expiratory wheeze Cardio regular rate, regular rhythm, S1 normal heart sound and S2 normal heart sound GI normal to inspection, nondistended, normoactive bowel sounds and soft to palpation Psych affect normal Assessment & Plan Assessment/Plan (1) COPD exacerbation: PLAN: Ongoing, but improved. Now down to 4l/m Treatment: * Scheduled DuoNeb * Albuterol as needed * Antibiotics * Titrate supplemental oxygen to maintain oxygen saturation of at least 90% (2) Pneumonia: PLAN: Impression of chest x-ray by radiologist: Lingular pneumonia. Antibiotics: Started on Rocephin and azithromycin Testing: * Legionella urine antigen and strep pneumoniae urine antigen negative * sputum culture: pending * BCx negative at 48h * Rapid COVID-19 and influenza negative (3) Leukocytosis: PLAN: Profoundly elevated on admission, slowly trending down, but still high. Suspect due to underlying infection. Steroids Continue to monitor PLAN: Plan Hypertension: Blood pressure is not within goal. Hydrochlorothiazide, hydralazine and amlodipine continued. Trend blood pressure and adjust blood pressure medications. DVT prophylaxis Subcutaneous Lovenox ordered. Disposition: To be determined. Hopefully 1-2 more days in the hospital. Charges/Coding Visit Charges Inpatient E&M: 24729 Subs Hosp L2
[2022-03-17] MEDS: Fluticasone 0.05% 1 SPRAY NASAL.SRY NASAL ×2 (09:39→21:11)
[2022-03-17] MEDS: Ensure Plus High Protein 120 ML LIQUID PO ×4 (09:39→23:00)
[2022-03-17] MEDS: amLODIPine 10 MG Tablet PO (09:40)
[2022-03-17] MEDS: Pyridoxine HCl 100 MG Tablet PO (09:40)
[2022-03-17] MEDS: hydroCHLOROthiazide 25 MG Tablet PO (09:40)
[2022-03-17] MEDS: Magnesium Chloride 64 MG Delay Rel.Tablet PO (09:40)
[2022-03-17] MEDS: Cholecalciferol (VIT D3) 25 MCG TABLET (1,000 UNITS) 50 MCG PO (09:40)
[2022-03-17] MEDS: Potassium Chloride Oral Tablet 10 MEQ PO (09:40)
[2022-03-17] MEDS: Ascorbic Acid 500 MG Tablet PO (09:40)
[2022-03-17] MEDS: Enoxaparin 40 MG/0.4 ML Syringe SC (09:40)
[2022-03-17] MEDS: Cyanocobalamin 500 MCG Tablet 1000 MCG PO (09:41)
[2022-03-17] MEDS: Lisinopril 20 MG Tablet 60 MG PO (09:41)
[2022-03-17] MEDS: FLU VACC QS2022-23(6MOS UP)/PF 60 MCG/0.5 ML SYRINGE IM (09:41)
[2022-03-17] MEDS: buPROPion (SR) 100 MG TABLET.SA PO ×2 (09:41→21:12)
[2022-03-17] MEDS: Sertraline 50 MG Tablet 75 MG PO (09:41)
[2022-03-17] MEDS: Atorvastatin Calcium 10 MG Tablet PO (21:14)
[2022-03-17] MEDS: MELATONIN 3 MG TABLET PO (23:00)
[2022-03-17] MEDS: Ceftriaxone 1 GM/50 ML BAG IV (23:00)
[2022-03-18] VITALS (13 sets, daily range): BP systolic 117–145; BP diastolic 69–87; PULSE 65–91; RESP 18–22; TEMP 36.3–36.7; O2SAT 86–97
[2022-03-18 05:47] LABS: Absolute Lymphocyte Count 1.63 X10^3/uL (0.83-4.51); Basophil# 0.05 X10^3/uL; Basophil% 0.3 % (0-1); Hematocrit 39.1 % (40-54); Hemoglobin 12.1 g/dL (13.0-16.5); Lymphocyte # 1.63 X10^3/ul (0.83-4.51); Mean Corp Hgb Conc 30.9 g/dL (32-36); Mean Corpuscular Hgb 27.3 pg (27.0-32.0); Mean Corpuscular Volume 88.3 fL (80-94); Mean Platelet Vol. 12.1 fl (6.2-12.0); Monocyte# 0.93 X10^3/uL; Monocyte% 5.7 % (0-10); NRBC Flagged by Analyzer 0 % (0-5); Neutrophil # 12.97 X10^3/uL (2.7-7.7); Neutrophil % 79.3 % (47-70); Platelet Count 224 K/mm3 (150-450); RBC Distribution Width CV 13.3 % (11.6-14.6); Red Blood Count 4.43 M/mm3 (4.6-6.2); White Blood Count 16.3 K/mm3 (4.4-11.0)
[2022-03-18 06:08] LABS: Anion Gap 7 (5-15); BUN 34 mg/dL (7-18); BUN/Creat Ratio 30.4 RATIO (10-20); Calcium,Total 8.4 mg/dL (8.5-10.1); Chloride 98 mmol/L (98-107); Creatinine, Serum 1.12 mg/dL (0.70-1.30); EST Glomerular Filtration Rate 70 mL/min (>60); Est Glom Filt Rate - Afr Amer 84 mL/min (>60); Estimated Creatinine Clearance 64.88 ml/min; Glucose 163 mg/dL (74-106); Potassium 3.5 mmol/L (3.5-5.1); Sodium Level 138 mmol/L (136-145)
[2022-03-18] MEDS: hydrALAZINE 25 MG Tablet PO ×3 (06:26→22:14)
[2022-03-18] MEDS: Ipratropium/Albuterol Sulfate 3 ML AMPUL.NEB INHALATION ×4 (07:20→19:04)
--- NOTE | 2022-03-18 08:21 | PN.HOSP_ITS ---
Subjective Subjective still with PARTIDA Objective Data Objective Data Vital Signs: Vital Signs Temp Pulse Resp BP Pulse Ox O2 Del Method O2 Flow Rate 36.6 C 74 19 H 117/69 94 Nasal Cannula 3 03/18/22 02:56 03/18/22 07:20 03/18/22 07:20 03/18/22 02:56 03/18/22 07:20 03/18/22 07:36 03/18/22 07:36 Oxygen Flow Rate (L/min) 3 Oxygen Delivery Method Nasal Cannula Weight: 90.4 kg Body Mass Index (BMI) 29.4 Intake & Output: Intake and Output for Last 24 Hours 03/16/22 03/17/22 03/18/22 23:59 23:59 23:59 Intake Total 930 / 930 785 / 785 Balance 930 / 930 785 / 785 Lab / Micro Data Result Diagrams: 03/18/22 04:49 03/18/22 04:49 Labs: Laboratory Results - last 24 hr 03/18/22 04:49: WBC 16.3 H, RBC 4.43 L, Hgb 12.1 L, Hct 39.1 L, MCV 88.3, MCH 27.3, MCHC 30.9 L, RDW Std Deviation 43.0, RDW Coeff of Heather 13.3, Plt Count 224, MPV 12.1 H, Immature Gran % (Auto) 4.700 H, Neut % (Auto) 79.3 H, Lymph % (Auto) 10.0 L, [place] % (Auto) 5.7, Eos % (Auto) 0.0, Baso % (Auto) 0.3, Absolute Neuts (auto) 13.0 H, Absolute Lymphs (auto) 1.63, Nucleated RBC % 0 03/18/22 04:49: Sodium 138, Potassium 3.5, Chloride 98, Carbon Dioxide 33.0 H, Anion Gap 7, BUN 34 H, Creatinine 1.12, Estim Creat Clear Calc 64.88, Est GFR (MDRD) Af Amer 84, Est GFR (MDRD) Non-Af 70, BUN/Creatinine Ratio 30.4 H, Glucose 163 H, Calcium 8.4 L Micro: Microbiology 03/16/22 16:20 Sputum, Expectorated/Coughed Gram Stain - Final 03/16/22 16:20 Sputum, Expectorated/Coughed Respiratory Culture - Preliminary Appears to be normal respiratory serenity. Further studies to follow. 03/14/22 20:09 Blood Culture (Wb) - Anticubital Left Blood Culture - Pre liminary No growth in 48 hours. 03/14/22 20:10 Blood Culture (Wb) - Anticubital Right Blood Culture - Preliminary No growth in 48 hours. 03/15/22 04:10 Urine, Clean Catch Legionella Antigen - Final 03/15/22 04:10 Urine, Clean Catch Streptococcus pneumoniae Antigen (M - Final 03/14/22 17:48 Nasal Secretion SARS-CoV-2 & FLU Antigen (Rapid) - Final Physical Exam Const alert and no apparent distress Resp Resp Narrative: diminished. exp wheeze Cardio regular rate, regular rhythm, S1 normal heart sound and S2 normal heart sound GI normal to inspection, nondistended, normoactive bowel sounds and soft to palpation Assessment & Plan Assessment/Plan (1) COPD exacerbation: PLAN: Ongoing, but improved. Now down to 3l/m Treatment: * Scheduled DuoNeb * Albuterol as needed * Antibiotics * Titrate supplemental oxygen to maintain oxygen saturation of at least 90% (2) Pneumonia: PLAN: Impression of chest x-ray by radiologist: Lingular pneumonia. Antibiotics: Started on Rocephin and azithromycin Testing: * Legionella urine antigen and strep pneumoniae urine antigen negative * sputum culture: normal serenity * BCx negative at 48h * Rapid COVID-19 and influenza negative (3) Leukocytosis: PLAN: Profoundly elevated on admission, but trending down Suspect due to underlying infection. Steroids Continue to monitor PLAN: Plan Hypertension: Blood pressure is not within goal. Hydrochlorothiazide, hydralazine and amlodipine continued. Trend blood pressure and adjust blood pressure medications. DVT prophylaxis Subcutaneous Lovenox ordered. Disposition: To be determined. Expect slow recovery. Charges/Coding Visit Charges Inpatient E&M: 22462 Subs Hosp L2
[2022-03-18] MEDS: Fluticasone 0.05% 1 SPRAY NASAL.SRY NASAL ×2 (09:11→22:14)
[2022-03-18] MEDS: Potassium Chloride Oral Tablet 10 MEQ PO (09:12)
[2022-03-18] MEDS: Cholecalciferol (VIT D3) 25 MCG TABLET (1,000 UNITS) 50 MCG PO (09:12)
[2022-03-18] MEDS: hydroCHLOROthiazide 25 MG Tablet PO (09:12)
[2022-03-18] MEDS: Magnesium Chloride 64 MG Delay Rel.Tablet PO (09:12)
[2022-03-18] MEDS: Pyridoxine HCl 100 MG Tablet PO (09:12)
[2022-03-18] MEDS: Folic Acid 1 MG Tablet PO (09:12)
[2022-03-18] MEDS: Sertraline 50 MG Tablet 75 MG PO (09:12)
[2022-03-18] MEDS: amLODIPine 10 MG Tablet PO (09:12)
[2022-03-18] MEDS: Ascorbic Acid 500 MG Tablet PO (09:13)
[2022-03-18] MEDS: Lisinopril 20 MG Tablet 60 MG PO (09:13)
[2022-03-18] MEDS: Enoxaparin 40 MG/0.4 ML Syringe SC (09:13)
[2022-03-18] MEDS: buPROPion (SR) 100 MG TABLET.SA PO ×2 (09:13→22:15)
[2022-03-18] MEDS: 0.9% Saline Lock 10 ML Syringe IV (13:46)
[2022-03-18] MEDS: Ensure Plus High Protein 120 ML LIQUID PO ×3 (13:46→22:14)
[2022-03-18] MEDS: Ceftriaxone 1 GM/50 ML BAG IV (22:00)
[2022-03-18] MEDS: MELATONIN 3 MG TABLET PO (22:13)
[2022-03-18] MEDS: guaiFENesin/Codeine 5 ML UDC 10 ML PO (22:13)
[2022-03-18] MEDS: Atorvastatin Calcium 10 MG Tablet PO (22:15)
[2022-03-19] VITALS (13 sets, daily range): BP systolic 125–148; BP diastolic 74–95; PULSE 65–89; RESP 18–24; TEMP 36.6–37.1; O2SAT 4–95
[2022-03-19] MEDS: hydrALAZINE 25 MG Tablet PO ×3 (05:23→21:21)
[2022-03-19 06:03] LABS: Hematocrit 40.5 % (40-54); Hemoglobin 12.6 g/dL (13.0-16.5); Mean Corp Hgb Conc 31.1 g/dL (32-36); Mean Corpuscular Hgb 26.9 pg (27.0-32.0); Mean Corpuscular Volume 86.5 fL (80-94); Mean Platelet Vol. 11.9 fl (6.2-12.0); POSITIVE COUNT YES; POSITIVE MORPHOLOGY YES; Platelet Count 219 K/mm3 (150-450); RBC Distribution Width CV 13.2 % (11.6-14.6); RBC Distribution Width SD 41.4 fl (35.1-43.9); Red Blood Count 4.68 M/mm3 (4.6-6.2)
[2022-03-19 06:37] LABS: Differential Indicated MANUAL DIFF
[2022-03-19 06:46] LABS: Anion Gap 2 (5-15); BUN 31 mg/dL (7-18); BUN/Creat Ratio 29.2 RATIO (10-20); Calcium,Total 8.5 mg/dL (8.5-10.1); Chloride 101 mmol/L (98-107); Creatinine, Serum 1.06 mg/dL (0.70-1.30); EST Glomerular Filtration Rate 74 mL/min (>60); Est Glom Filt Rate - Afr Amer 90 mL/min (>60); Estimated Creatinine Clearance 68.55 ml/min; Glucose 117 mg/dL (74-106); Potassium 3.5 mmol/L (3.5-5.1); Sodium Level 138 mmol/L (136-145)
[2022-03-19 06:47] LABS: Lymphocyte 8 % (19-41); Monocyte 8 % (0-10); Myelocyte 3 % (0-0); Neutrophil-Band 4 % (0-5); Neutrophil-Segmented 77 % (47-70); Platelet Estimate ADEQUATE (ADEQ); Total Cells Counted 100 (MANUAL DIFF)
[2022-03-19 06:48] LABS: Absolute Lymphocyte Count 1.36 X10^3/uL (0.83-4.51); Absolute Neutrophil Count 13.7 X10^3/uL (2.0-7.7); Lymphocyte # 1.36 X10^3/ul (0.83-4.51); Neutrophil # 13.73 X10^3/uL (2.7-7.7); Red Cell Morphology NORM C+C NORMAL (NORM C&C)
[2022-03-19] MEDS: Ipratropium/Albuterol Sulfate 3 ML AMPUL.NEB INHALATION ×4 (07:14→19:05)
[2022-03-19] MEDS: Folic Acid 1 MG Tablet PO (07:48)
[2022-03-19] MEDS: Aspirin 81 MG TAB.CHEW PO (07:48)
--- NOTE | 2022-03-19 08:30 | PN.HOSP_ITS ---
Subjective Subjective Feels better Objective Data Objective Data Vital Signs: Vital Signs Temp Pulse Resp BP Pulse Ox O2 Del Method O2 Flow Rate 37.1 C 74 18 134/74 H 4 Nasal Cannula 4 03/19/22 07:52 03/19/22 07:52 03/19/22 07:52 03/19/22 07:52 03/19/22 07:53 03/19/22 07:53 03/19/22 07:52 Oxygen Flow Rate (L/min) [ 5 AMBULATING with Oxygen #3] Oxygen Flow Rate (L/min) [ 4 AMBULATING with Oxygen #2] Oxygen Flow Rate (L/min) [ 3 AMBULATING with Oxygen #1] Oxygen Flow Rate (L/min) [At 3 REST with Oxygen] Oxygen Flow Rate (L/min) 4 Oxygen Delivery Method Nasal Cannula Weight: 90.4 kg Body Mass Index (BMI) 29.4 Intake & Output: Intake and Output for Last 24 Hours 03/17/22 03/18/22 03/19/22 23:59 23:59 23:59 Intake Total 785 / 785 170 / 170 255 / 255 Balance 785 / 785 170 / 170 255 / 255 Lab / Micro Data Result Diagrams: 03/19/22 05:26 03/19/22 05:26 Labs: Laboratory Results - last 24 hr 03/19/22 05:26: WBC 17.0 H, RBC 4.68, Hgb 12.6 L, Hct 40.5, MCV 86.5, MCH 26.9 L , MCHC 31.1 L, RDW Std Deviation 41.4, RDW Coeff of Heather 13.2, Plt Count 219, MPV 11.9, Neut % (Auto) Not Reportable, Absolute Neuts (auto) 13.7 H, Absolute Lymphs (auto) 1.36, Total Counted 100, Neutrophils % (Manual) 77 H, Band Neutrophils % 4, Lymphocytes % (Manual) 8 L, Monocytes % (Manual) 8, Myelocytes % 3 H, Diff Path Review July, Platelet Estimate ADEQUATE, RBC Morphology NORM C+C 03/19/22 05:26: Sodium 138, Potassium 3.5, Chloride 101, Carbon Dioxide 35.0 H, Anion Gap 2 L, BUN 31 H, Creatinine 1.06, Estim Creat Clear Calc 68.55, Est GFR (MDRD) Af Amer 90, Est GFR (MDRD) Non-Af 74, BUN/Creatinine Ratio 29.2 H, Glucose 117 H, Calcium 8.5 Micro: Microbiology 03/16/22 16:20 Sputum, Expectorated/Coughed Gram Stain - Final 03/16/22 16:20 Sputum, Expectorated/Coughed Respiratory Culture - Final Mixed normal respiratory serenity. No Streptococcus pneumoniae, beta-hemolytic Streptococcus or Staphylococcus aureus isolated. 03/14/22 20:09 Blood Culture (Wb) - Anticubital Left Blood Culture - Preliminary No growth in 48 hours. 03/14/22 20:10 Blood Culture (Wb) - Anticubital Right Blood Culture - Preliminary No growth in 48 hours. 03/15/22 04:10 Urine, Clean Catch Legionella Antigen - Final 03/15/22 04:10 Urine, Clean Catch Streptococcus pneumoniae Antigen (M - Final 03/14/22 17:48 Nasal Secretion SARS-CoV-2 & FLU Antigen (Rapid) - Final Physical Exam Const alert and no apparent distress Constitutional Narrative: Still requiring high levels of oxygen with activity. Resp normal respiratory effort and no retractions Cardio regular rate, regular rhythm, S1 normal heart sound and S2 normal heart sound GI normal to inspection, nondistended, normoactive bowel sounds, soft to palpation, non-tender and non-distended Extremity normal to inspection Assessment & Plan Assessment/Plan (1) COPD exacerbation: PLAN: Ongoing, Treatment: * Scheduled DuoNeb * Albuterol as needed * Antibiotics * Titrate supplemental oxygen to maintain oxygen saturation of at least 90% (2) Pneumonia: PLAN: Impression of chest x-ray by radiologist: Lingular pneumonia. Antibiotics: Started on Rocephin and azithromycin Testing: * Legionella urine antigen and strep pneumoniae urine antigen negative * sputum culture: negative * BCx negative at 48h * Rapid COVID-19 and influenza negative * Given the lack of significant progress, check a CT of the chest. (3) Leukocytosis: PLAN: Profoundly elevated on admission, but trending down Suspect due to underlying infection. Steroids Continue to monitor PLAN: Plan Hypertension: Blood pressure is not within goal. Hydrochlorothiazide, hydralazine and amlodipine continued. Trend blood pressure and adjust blood pressure medications. DVT prophylaxis Subcutaneous Lovenox ordered. Disposition: To be determined. Expect slow recovery. Charges/Coding Visit Charges Inpatient E&M: 32249 Subs Hosp L2
[2022-03-19] MEDS: Fluticasone 0.05% 1 SPRAY NASAL.SRY NASAL ×2 (09:07→21:31)
[2022-03-19] MEDS: Sertraline 50 MG Tablet 75 MG PO (09:11)
[2022-03-19] MEDS: amLODIPine 10 MG Tablet PO (09:12)
[2022-03-19] MEDS: buPROPion (SR) 100 MG TABLET.SA PO ×2 (09:12→21:22)
[2022-03-19] MEDS: hydroCHLOROthiazide 25 MG Tablet PO (09:12)
[2022-03-19] MEDS: Ascorbic Acid 500 MG Tablet PO (09:12)
[2022-03-19] MEDS: Cholecalciferol (VIT D3) 25 MCG TABLET (1,000 UNITS) 50 MCG PO (09:12)
[2022-03-19] MEDS: Lisinopril 20 MG Tablet 60 MG PO (09:12)
[2022-03-19] MEDS: Pyridoxine HCl 100 MG Tablet PO (09:12)
[2022-03-19] MEDS: Potassium Chloride Oral Tablet 10 MEQ PO (09:12)
[2022-03-19] MEDS: Cyanocobalamin 500 MCG Tablet 1000 MCG PO (09:12)
[2022-03-19] MEDS: Magnesium Chloride 64 MG Delay Rel.Tablet PO (09:12)
[2022-03-19] MEDS: Enoxaparin 40 MG/0.4 ML Syringe SC (09:13)
[2022-03-19] MEDS: Ensure Plus High Protein 120 ML LIQUID PO ×2 (13:17→21:29)
[2022-03-19] MEDS: 0.9% Saline Lock 10 ML Syringe IV (14:07)
--- NOTE | 2022-03-19 14:33 | CT_ITS ---
STUDY: CT CHEST WITH CONTRAST REASON FOR EXAM: Male, 66 years old. pneumonia. RADIATION DOSAGE (If Supplied By Facility): CTDIvol = ( 16.2 ) mGy, DLP = ( 523.4 ) mGycm TECHNIQUE: Transaxial imaging was performed following intravenous administration of IV 100mL Isovue-300. Multiplanar coronal and sagittal images were reformatted. Individualized dose optimization techniques were used for this CT. COMPARISON: Comparison is made with prior examination dated 10/02/2021. FINDINGS: CHEST Stable small benign-appearing bilateral axillary lymph nodes. Hyperinflation. Emphysematous changes. There is a noncalcified 5.8 mm nodule in the lateral aspect of the right upper lobe as seen on axial image #65. This was not seen on prior study. Mild increased markings in the lingular segment of the left upper lobe and anterior aspect of the left lower lobe. Radiographic follow-up is recommended. There is no demonstrated pleural abnormality. There are calcifications of the coronary arteries. Minimal anterior pericardial thickening. There are multiple small lymph nodes within the mediastinum, which are normal in size and morphology most compatible with reactive lymph hyperplasia. Normal hilar regions. Normal unenhanced pulmonary arteries. There is atherosclerotic calcification of the aortic arch with tortuosity and elongation of the aortic arch and descending thoracic aorta. There are multi-level degenerative changes of the thoracic spine. Fatty infiltration of the liver. Hyperplasia of the left adrenal gland. CT/Chest WITH Contrast IMPRESSION: New 5.8 mm noncalcified nodule in the right middle lobe as described. Increased markings in the posterior aspect of the lingular segment of the left upper lobe as well as the left lower lobe. Follow-up is recommended. Minimal anterior pericardial thickening. Stable hyperplasia of the left adrenal gland. Electronically Signed: Vicente Velasquez MD at 15:24 EST ,
[2022-03-19] MEDS: MELATONIN 3 MG TABLET PO (21:22)
[2022-03-19] MEDS: guaiFENesin/Codeine 5 ML UDC 10 ML PO (21:22)
[2022-03-19] MEDS: Atorvastatin Calcium 10 MG Tablet PO (21:32)
[2022-03-19] MEDS: Ceftriaxone 1 GM/50 ML BAG IV (22:51)
[2022-03-20] VITALS (13 sets, daily range): BP systolic 125–142; BP diastolic 77–82; PULSE 74–98; RESP 16–20; TEMP 36.3–36.6; O2SAT 85–95
[2022-03-20] MEDS: hydrALAZINE 25 MG Tablet PO ×2 (05:27→13:46)
[2022-03-20 07:19] LABS: Hematocrit 42.9 % (40-54); Hemoglobin 13.9 g/dL (13.0-16.5); Mean Corp Hgb Conc 32.4 g/dL (32-36); Mean Corpuscular Hgb 28.1 pg (27.0-32.0); Mean Corpuscular Volume 86.8 fL (80-94); Mean Platelet Vol. 11.6 fl (6.2-12.0); POSITIVE COUNT YES; POSITIVE MORPHOLOGY YES; Platelet Count 256 K/mm3 (150-450); RBC Distribution Width CV 13.2 % (11.6-14.6); RBC Distribution Width SD 41.9 fl (35.1-43.9); Red Blood Count 4.94 M/mm3 (4.6-6.2); White Blood Count 23.6 K/mm3 (4.4-11.0)
[2022-03-20] MEDS: Ipratropium/Albuterol Sulfate 3 ML AMPUL.NEB INHALATION ×3 (07:34→14:15)
[2022-03-20 07:36] LABS: Anion Gap 7 (5-15); BUN 30 mg/dL (7-18); BUN/Creat Ratio 25.4 RATIO (10-20); Calcium,Total 8.5 mg/dL (8.5-10.1); Chloride 99 mmol/L (98-107); Creatinine, Serum 1.18 mg/dL (0.70-1.30); Differential Indicated MANUAL DIFF; EST Glomerular Filtration Rate 66 mL/min (>60); Est Glom Filt Rate - Afr Amer 79 mL/min (>60); Estimated Creatinine Clearance 61.58 ml/min; Glucose 126 mg/dL (74-106); Potassium 3.8 mmol/L (3.5-5.1); Sodium Level 139 mmol/L (136-145)
[2022-03-20 08:14] LABS: Lymphocyte 9 % (19-41); Metamyelocyte 4 % (0-1); Monocyte 4 % (0-10); Myelocyte 1 % (0-0); Neutrophil-Band 1 % (0-5); Neutrophil-Segmented 81 % (47-70); Total Cells Counted 100 (MANUAL DIFF)
[2022-03-20 08:15] LABS: Platelet Estimate ADEQUATE (ADEQ); Red Cell Morphology NORM C+C NORMAL (NORM C&C)
[2022-03-20 08:16] LABS: Reactive Lymphocyte RARE
[2022-03-20 08:17] LABS: Absolute Neutrophil Count 19.3 X10^3/uL (2.0-7.7); Dohle Bodies 1+
--- NOTE | 2022-03-20 08:19 | PN.HOSP_ITS ---
Subjective Subjective Feeling better Objective Data Objective Data Vital Signs: Vital Signs Temp Pulse Resp BP Pulse Ox O2 Del Method O2 Flow Rate 36.4 C L 78 20 H 137/77 H 93 Nasal Cannula 4 03/20/22 05:00 03/20/22 05:27 03/20/22 05:00 03/20/22 05:00 03/20/22 05:00 03/20/22 05:00 03/20/22 05:00 Oxygen Flow Rate (L/min) [ 0 AMBULATING on Room Air] Oxygen Flow Rate (L/min) [At 0 REST on Room Air] Oxygen Flow Rate (L/min) [ 87 AMBULATING with Oxygen #3] Oxygen Flow Rate (L/min) [ 4 AMBULATING with Oxygen #2] Oxygen Flow Rate (L/min) [ 2 AMBULATING with Oxygen #1] Oxygen Flow Rate (L/min) [At 4 REST with Oxygen] Oxygen Flow Rate (L/min) 4 Oxygen Delivery Method Nasal Cannula Weight: 90.4 kg Body Mass Index (BMI) 29.4 Intake & Output: Intake and Output for Last 24 Hours 03/18/22 03/19/22 03/20/22 23:59 23:59 23:59 Intake Total 170 / 170 920 / 920 Balance 170 / 170 920 / 920 Lab / Micro Data Result Diagrams: 03/20/22 06:40 03/20/22 06:40 Labs: Laboratory Results - last 24 hr 03/20/22 06:40: WBC 23.6 H, RBC 4.94, Hgb 13.9, Hct 42.9, MCV 86.8, MCH 28.1, MCHC 32.4, RDW Std Deviation 41.9, RDW Coeff of Heather 13.2, Plt Count 256, MPV 11.6, Neut % (Auto) Not Reportable, Absolute Neuts (auto) 19.3 H, Absolute Lymphs (auto) 2.10, Total Counted 100, Neutrophils % (Manual) 81 H, Band Neutrophils % 1, Lymphocytes % (Manual) 9 L, Monocytes % (Manual) 4, Metamyelocytes % 4 H, Myelocytes % 1 H, Diff Path Review May foll, Reactive Lymphocytes RARE, Dohle Bodies 1+, Platelet Estimate ADEQUATE, RBC Morphology NORM C+C 03/20/22 06:40: Sodium 139, Potassium 3.8, Chloride 99, Carbon Dioxide 33.0 H, Anion Gap 7, BUN 30 H, Creatinine 1.18, Estim Creat Clear Calc 61.58, Est GFR (MDRD) Af Amer 79, Est GFR (MDRD) Non-Af 66, BUN/Creatinine Ratio 25.4 H, Glucose 126 H, Calcium 8.5 Micro: Microbiology 03/14/22 20:10 Blood Culture (Wb) - Anticubital Right Blood Culture - Final No growth in 5 days. 03/14/22 20:09 Blood Culture (Wb) - Anticubital Left Blood Culture - Final No growth in 5 days. 03/16/22 16:20 Sputum, Expectorated/Coughed Gram Stain - Final 03/16/22 16:20 Sputum, Expectorated/Coughed Respiratory Culture - Final Mixed normal respiratory serenity. No Streptococcus pneumoniae, beta-hemolytic Streptococcus or Staphylococcus aureus isolated. 03/15/22 04:10 Urine, Clean Catch Legionella Antigen - Final 03/15/22 04:10 Urine, Clean Catch Streptococcus pneumoniae Antigen (M - Final 03/14/22 17:48 Nasal Secretion SARS-CoV-2 & FLU Antigen (Rapid) - Final Radiography Diagnostic Testing: Radiology Impression Chest CT 03/19/22 14:33 IMPRESSION: New 5.8 mm noncalcified nodule in the right middle lobe as described. Increased markings in the posterior aspect of the lingular segment of the left upper lobe as well as the left lower lobe. Follow-up is recommended. Minimal anterior pericardial thickening. Stable hyperplasia of the left adrenal gland. Electronically Signed: Vicente Velasquez MD at 15:24 EST , Physical Exam Const alert and no apparent distress Resp Resp Narrative: diminished, but improved air movement. Cardio regular rate, regular rhythm, S1 normal heart sound and S2 normal heart sound GI normal to inspection, nondistended, normoactive bowel sounds, soft to palpation, non-tender and non-distended Assessment & Plan Assessment/Plan (1) COPD exacerbation: PLAN: Ongoing, Treatment: * Scheduled DuoNeb * Albuterol as needed * Antibiotics * Titrate supplemental oxygen to maintain oxygen saturation of at least 90% * Pt will have 2liters/m oxygen at rest and 6liters/m with activity * Follow up pulmonary as outpt. * Prednisone taper. (2) Pneumonia: PLAN: Impression of chest x-ray by radiologist: Lingular pneumonia. Antibiotics: Started on Rocephin and azithromycin Testing: * Legionella urine antigen and strep pneumoniae urine antigen negative * sputum culture: negative * BCx negative at 48h * Rapid COVID-19 and influenza negative * Minimal infiltrate on CXR (3) Leukocytosis: PLAN: Profoundly elevated on admission, but trending down Suspect due to underlying infection. Steroids Continue to monitor PLAN: Plan Hypertension: Stable Hydrochlorothiazide, hydralazine and amlodipine continued. Trend blood pressure and adjust blood pressure medications. DVT prophylaxis Subcutaneous Lovenox ordered. Disposition: to home with oxygen.
[2022-03-20] MEDS: Ascorbic Acid 500 MG Tablet PO (09:13)
[2022-03-20] MEDS: Fluticasone 0.05% 1 SPRAY NASAL.SRY NASAL (09:13)
[2022-03-20] MEDS: Lisinopril 20 MG Tablet 60 MG PO (09:13)
[2022-03-20] MEDS: Sertraline 50 MG Tablet 75 MG PO (09:14)
[2022-03-20] MEDS: Pyridoxine HCl 100 MG Tablet PO (09:14)
[2022-03-20] MEDS: amLODIPine 10 MG Tablet PO (09:14)
[2022-03-20] MEDS: Cholecalciferol (VIT D3) 25 MCG TABLET (1,000 UNITS) 50 MCG PO (09:14)
[2022-03-20] MEDS: buPROPion (SR) 100 MG TABLET.SA PO (09:14)
[2022-03-20] MEDS: Potassium Chloride Oral Tablet 10 MEQ PO (09:15)
[2022-03-20] MEDS: Folic Acid 1 MG Tablet PO (09:16)
[2022-03-20] MEDS: hydroCHLOROthiazide 25 MG Tablet PO (09:16)
[2022-03-20] MEDS: Magnesium Chloride 64 MG Delay Rel.Tablet PO (09:16)
[2022-03-20] MEDS: Enoxaparin 40 MG/0.4 ML Syringe SC (09:17)
[2022-03-20] MEDS: 0.9% Saline Lock 10 ML Syringe IV (13:48)
--- NOTE | 2022-03-20 14:03 | DCINST_ITS ---
Discharge Instructions Diet Discharge Diet: No restrictions Dressing / Incision Call your doctor if you observe: Shortness of breath Follow Up Care Test Results: Test results from this visit will be discussed in further detail at your follow- up appointment, if applicable. Discharge Plan Admission Admit Date/Time: 03/14/22 20:07 Primary Reason for Your Visit: COPD exacerbation. Pneumonia Attending Provider: Marcell Hall Primary Care Provider: Paula Sainz Consulting Providers: Roshan Chao Discharge Orders/Prescriptions Prescriptions: New codeine-guaifenesin [Guaiatussin AC] 10-100 mg/5 mL Liquid 10 ml PO Q6H PRN PRN (Reason: COUGH) Qty: 120 0RF amoxicillin-pot clavulanate 875-125 mg tablet 1 tab PO BID Qty: 4 0RF prednisone 10 mg tablet 10 mg PO DAILY Qty: 30 0RF Rx Instructions: 4 tabs daily for 3 days, then 3 tabs daily for 3 days, then 2 tabs daily for 3 days, then 1 tab daily for 3 days. Continued atorvastatin 10 mg tablet 10 mg PO DAILY Label Comments: TAKE ONE TABLET BY MOUTH EVERY DAY famotidine 20 mg tablet 20 mg PO DAILY PRN (Reason: reflux) Label Comments: TAKE ONE TABLET BY MOUTH EVERY DAY NEEDED sertraline 50 mg tablet 75 mg PO DAILY albuterol sulfate 0.63 mg/3 mL solution for nebulization 0.63 mg INHALATION BID bupropion HCl 100 mg tablet 100 mg PO BID amlodipine 10 MG tablet 10 mg PO DAILY aspirin 81 MG tablet,chewable 81 mg PO QODAY Label Comments: stop 7 days preop folic acid 1 MG tablet 1 mg PO DAILY hydrochlorothiazide 25 MG tablet 25 mg PO DAILY pyridoxine (vitamin B6) 100 MG tablet 100 mg PO DAILY potassium chloride 10 MEQ tablet 10 meq PO DAILY cholecalciferol (vitamin D3) 2,000 UNIT capsule 2,000 unit PO DAILY ascorbic acid (vitamin C) 500 MG capsule 500 mg PO DAILY cyanocobalamin (vitamin B-12) 1,000 MCG capsule 1,000 mcg PO QODAY benazepril 10 mg tablet 60 mg PO DAILY fluticasone furoate-vilanterol 1 EACH blister with device 1 ea IH DAILY hydralazine 25 mg tablet 25 mg PO TID Label Comments: TAKE 1 TABLET BY MOUTH 3 TIMES A DAY magnesium 200 mg Tablet 400 mg PO DAILY Incruse Ellipta 62.5 mcg/actuation Blister With Device 1 inh INHALATION DAILY Referrals / Follow Up: Paula Sainz MD [Primary Care Provider] - Within 2 Weeks Uri Segal MD [Med Staff - Active Staff] - Within 2 Weeks Disposition Disposition (needs filled in before D/C Order can be placed): Home, Self Care
--- NOTE | 2022-03-20 14:09 | DS.PCM_ITS ---
Providers Date of Admission: 03/14/22 Primary Care Physician: Dr. Paula Sainz MD Reason For Visit: PNEUMONIA Diagnosis Discharge Diagnosis (1) COPD exacerbation: Status: Chronic Code(s): J44.1 - Chronic obstructive pulmonary disease with (acute) exacerbation Plan: Ongoing, Treatment: * Scheduled DuoNeb * Albuterol as needed * Antibiotics * Titrate supplemental oxygen to maintain oxygen saturation of at least 90% * Pt will have 2liters/m oxygen at rest and 6liters/m with activity * Follow up pulmonary as outpt. * Prednisone taper. (2) Pneumonia: Status: Acute Code(s): J18.9 - Pneumonia, unspecified organism Plan: Impression of chest x-ray by radiologist: Lingular pneumonia. Antibiotics: Started on Rocephin and azithromycin Testing: * Legionella urine antigen and strep pneumoniae urine antigen negative * sputum culture: negative * BCx negative at 48h * Rapid COVID-19 and influenza negative * Minimal infiltrate on CXR (3) Leukocytosis: Status: Acute Code(s): D72.829 - Elevated white blood cell count, unspecified Plan: Profoundly elevated on admission, but trending down Suspect due to underlying infection. Steroids Continue to monitor Plan Hypertension: Stable Hydrochlorothiazide, hydralazine and amlodipine continued. Trend blood pressure and adjust blood pressure medications. DVT prophylaxis Subcutaneous Lovenox ordered. Disposition: to home with oxygen. Medications at Discharge Home Medications amlodipine 10 mg tablet 10 mg PO DAILY blood pressure 04/14/18 ascorbic acid (vitamin C) 500 mg capsule 500 mg PO DAILY supplement 04/14/18 aspirin 81 mg chewable tablet 81 mg PO QODAY Hu[place]y 04/14/18 cholecalciferol (vitamin D3) 50 mcg (2,000 unit) capsule 2,000 unit PO DAILY vitamin 04/14/18 cyanocobalamin (vitamin B-12) 1,000 mcg capsule 1,000 mcg PO QODAY vitamin 04/14/18 folic acid 1 mg tablet 1 mg PO DAILY supplement 04/14/18 hydrochlorothiazide 25 mg tablet 25 mg PO DAILY blood pressure 04/14/18 potassium chloride 10 mEq tablet,extended release(part/cryst) 10 meq PO DAILY supplement 04/14/18 pyridoxine (vitamin B6) 100 mg tablet 100 mg PO DAILY vitamin 04/14/18 albuterol sulfate 0.63 mg/3 mL solution for nebulization 0.63 mg inhalation BID copd 12/17/19 atorvastatin 10 mg tablet 10 mg PO DAILY cholesterol 12/17/19 benazepril 10 mg tablet 60 mg PO DAILY blood pressure 12/17/19 bupropion HCl 100 mg tablet 100 mg PO BID mood 12/17/19 famotidine 20 mg tablet 20 mg PO DAILY PRN reflux 12/17/19 sertraline 50 mg tablet 75 mg PO DAILY mood 12/17/19 fluticasone furoate 200 mcg-vilanterol 25 mcg/dose inhalation powder 1 ea IH DAILY copd 12/25/19 hydralazine 25 mg tablet 25 mg PO TID blood pressure 03/14/22 magnesium 200 mg tablet 400 mg PO DAILY supplement 03/14/22 umeclidinium 62.5 mcg/actuation blister powder for inhalation (Incruse Ellipta) 1 inh inhalation DAILY COPD 03/14/22 amoxicillin 875 mg-potassium clavulanate 125 mg tablet 1 tab PO BID #4 tabs 03/20/22 codeine 10 mg-guaifenesin 100 mg/5 mL oral liquid (Guaiatussin AC) 10 ml PO Q6H PRN PRN COUGH #120 mL 03/20/22 prednisone 10 mg tablet 10 mg PO DAILY #30 tabs 03/20/22 Hospital Course Operations None Procedures None Summary of Care Provided Minutes Spent on Discharge: 32 Weight / BMI Weight Weight: 90.4 kg Body Mass Index (BMI) 29.4 ABG / Lab / Microbiology Data Result Diagrams: 03/20/22 06:40 03/20/22 06:40 Laboratory: Laboratory Results - last 24 hr 03/20/22 06:40: WBC 23.6 H, RBC 4.94, Hgb 13.9, Hct 42.9, MCV 86.8, MCH 28.1, MCHC 32.4, RDW Std Deviation 41.9, RDW Coeff of Heather 13.2, Plt Count 256, MPV 11.6, Neut % (Auto) Not Reportable, Absolute Neuts (auto) 19.3 H, Absolute Lymphs (auto) 2.10, Total Counted 100, Neutrophils % (Manual) 81 H, Band Ne utrophils % 1, Lymphocytes % (Manual) 9 L, Monocytes % (Manual) 4, Metamyelocytes % 4 H, Myelocytes % 1 H, Diff Path Review May foll, Reactive Lymphocytes RARE, Dohle Bodies 1+, Platelet Estimate ADEQUATE, RBC Morphology NORM C+C 03/20/22 06:40: Sodium 139, Potassium 3.8, Chloride 99, Carbon Dioxide 33.0 H, Anion Gap 7, BUN 30 H, Creatinine 1.18, Estim Creat Clear Calc 61.58, Est GFR (MDRD) Af Amer 79, Est GFR (MDRD) Non-Af 66, BUN/Creatinine Ratio 25.4 H, Glucose 126 H, Calcium 8.5 Microbiology: Microbiology 03/14/22 20:10 Blood Culture (Wb) - Anticubital Right Blood Culture - Final No growth in 5 days. 03/14/22 20:09 Blood Culture (Wb) - Anticubital Left Blood Culture - Final No growth in 5 days. 03/16/22 16:20 Sputum, Expectorated/Coughed Gram Stain - Final 03/16/22 16:20 Sputum, Expectorated/Coughed Respiratory Culture - Final Mixed normal respiratory serenity. No Streptococcus pneumoniae, beta-hemolytic Streptococcus or Staphylococcus aureus isolated. 03/15/22 04:10 Urine, Clean Catch Legionella Antigen - Final 03/15/22 04:10 Urine, Clean Catch Streptococcus pneumoniae Antigen (M - Final 03/14/22 17:48 Nasal Secretion SARS-CoV-2 & FLU Antigen (Rapid) - Final Radiography Diagnostic Testing: Radiology Impression Chest CT 03/19/22 14:33 IMPRESSION: New 5.8 mm noncalcified nodule in the right middle lobe as described. Increased markings in the posterior aspect of the lingular segment of the left upper lobe as well as the left lower lobe. Follow-up is recommended. Minimal anterior pericardial thickening. Stable hyperplasia of the left adrenal gland. Electronically Signed: Vicente Velasquez MD at 15:24 EST , D/C Instructions Discharge Diet: No restrictions Call your doctor if you observe: Shortness of breath Meaningful Use Info Meaningful Use Diagnoses (Choose all that apply): None applicable Discharge Plan Admission Admit Date/Time: 03/14/22 20:07 Primary Reason for Your Visit: COPD exacerbation. Pneumonia Attending Provider: Marcell Hall Primary Care Provider: Paula Sainz Consulting Providers: Roshan Chao Discharge Orders/Prescriptions Prescriptions: New codeine-guaifenesin [Guaiatussin AC] 10-100 mg/5 mL Liquid 10 ml PO Q6H PRN PRN (Reason: COUGH) Qty: 120 0RF amoxicillin-pot clavulanate 875-125 mg tablet 1 tab PO BID Qty: 4 0RF prednisone 10 mg tablet 10 mg PO DAILY Qty: 30 0RF Rx Instructions: 4 tabs daily for 3 days, then 3 tabs daily for 3 days, then 2 tabs daily for 3 days, then 1 tab daily for 3 days. Continued atorvastatin 10 mg tablet 10 mg PO DAILY Label Comments: TAKE ONE TABLET BY MOUTH EVERY DAY famotidine 20 mg tablet 20 mg PO DAILY PRN (Reason: reflux) Label Comments: TAKE ONE TABLET BY MOUTH EVERY DAY NEEDED sertraline 50 mg tablet 75 mg PO DAILY albuterol sulfate 0.63 mg/3 mL solution for nebulization 0.63 mg INHALATION BID bupropion HCl 100 mg tablet 100 mg PO BID amlodipine 10 MG tablet 10 mg PO DAILY aspirin 81 MG tablet,chewable 81 mg PO QODAY Label Comments: stop 7 days preop folic acid 1 MG tablet 1 mg PO DAILY hydrochlorothiazide 25 MG tablet 25 mg PO DAILY pyridoxine (vitamin B6) 100 MG tablet 100 mg PO DAILY potassium chloride 10 MEQ tablet 10 meq PO DAILY cholecalciferol (vitamin D3) 2,000 UNIT capsule 2,000 unit PO DAILY ascorbic acid (vitamin C) 500 MG capsule 500 mg PO DAILY cyanocobalamin (vitamin B-12) 1,000 MCG capsule 1,000 mcg PO QODAY benazepril 10 mg tablet 60 mg PO DAILY fluticasone furoate-vilanterol 1 EACH blister with device 1 ea IH DAILY hydralazine 25 mg tablet 25 mg PO TID Label Comments: TAKE 1 TABLET BY MOUTH 3 TIMES A DAY magnesium 200 mg Tablet 400 mg PO DAILY Incruse Ellipta 62.5 mcg/actuation Blister With Device 1 inh INHALATION DAILY Referrals / Follow Up: Paula Sainz MD [Primary Care Provider] - Within 2 Weeks Uri Segal MD [Med Staff - Active Staff] - Within 2 Weeks Disposition Disposition (needs filled in before D/C Order can be placed): Home, Self Care Charges/Coding Visit Charges Inpatient E&M: 44832 Disch Hosp
--- NOTE | 2022-03-20 15:40 | CASEMGMT ---
Pt does not require increase in oxygen rx.
[2022-03-22 11:05] LABS: Pathologist Review Reviewed
[2022-03-23 11:59] LABS: Pathologist Review Reviewed
== END 2022-03-20 15:20 | disposition home or self-care (01) | DRG 193 ==
LOC: ED 20:35 → MS3 20:40
PROVIDERS: Admitting Provider Hospitalist; Emergency Provider Emergency Medicine; PCP Specialist
DX: J18.9 Pneumonia, unspecified organism (principal); J96.21 Acute and chronic respiratory failure with hypoxia; J44.1 Chronic obstructive pulmonary disease with (acute) exacerbation; J44.0 Chronic obstructive pulmonary disease with (acute) lower respiratory infection; Z99.81 Dependence on supplemental oxygen; I10 Essential (primary) hypertension; F17.210 Nicotine dependence, cigarettes, uncomplicated; Z20.822 Contact with and (suspected) exposure to COVID-19; Z23 Encounter for immunization; Z79.82 Long term (current) use of aspirin; Z79.899 Other long term (current) drug therapy
CPT/HCPCS: 36415; 71045; 71260; 80048; 83735; 84484; 85025; 87040; 87070; 87205; 87428; 87449; 93005; 94640; 94667; 94668; 94762; 97802; 99252; 99285; G0008; J7050; Q9967; 90686; A4216; G0463

== ENCOUNTER → 2022-06-15 | Outpatient (CLI) | payer MEDICARE, OTHER, SELFPAY ==
[2022-06-15 13:10] LABS: Absolute Lymphocyte Count 2.49 X10^3/uL (0.83-4.51); Absolute Neutrophil Count 6.4 X10^3/uL (2.0-7.7); Basophil# 0.07 X10^3/uL; Basophil% 0.7 % (0-1); Eosinophil# 0.47 X10^3/uL; Eosinophils% 4.6 % (0-5); Hematocrit 44.4 % (40-54); Hemoglobin 14.3 g/dL (13.0-16.5); Lymphocyte # 2.49 X10^3/ul (0.83-4.51); Lymphocyte % 24.6 % (19-41); Mean Corp Hgb Conc 32.2 g/dL (32-36); Mean Corpuscular Hgb 27.3 pg (27.0-32.0); Mean Corpuscular Volume 84.7 fL (80-94); Mean Platelet Vol. 11.6 fl (6.2-12.0); Monocyte# 0.58 X10^3/uL; Monocyte% 5.7 % (0-10); NRBC Flagged by Analyzer 0 % (0-5); Neutrophil # 6.44 X10^3/uL (2.7-7.7); Neutrophil % 63.8 % (47-70); Platelet Count 204 K/mm3 (150-450); RBC Distribution Width CV 13.5 % (11.6-14.6); RBC Distribution Width SD 41.7 fl (35.1-43.9); Red Blood Count 5.24 M/mm3 (4.6-6.2); White Blood Count 10.1 K/mm3 (4.4-11.0)
[2022-06-15 13:49] LABS: AST(SGOT) 25 U/L (15-37); Alanine Aminotransfer ALT/SGPT 21 U/L (16-61); Albumin, Serum 3.5 g/dL (3.2-5.0); Alkaline Phosphatase 77 U/L (45-117); Anion Gap 6 (5-15); BUN 24 mg/dL (7-18); BUN/Creat Ratio 18.2 RATIO (10-20); Calcium,Total 9.1 mg/dL (8.5-10.1); Chloride 103 mmol/L (98-107); Cholesterol 204 mg/dL (200); Creatinine, Serum 1.32 mg/dL (0.70-1.30); EST Glomerular Filtration Rate 58 mL/min (>60); Est Glom Filt Rate - Afr Amer 70 mL/min (>60); Globulin 3.5 g/dL (2.2-4.2); Glucose 100 mg/dL (74-106); High Density Lipoprotein 37 mg/dL; Iron 66 ug/dL (65-175); Potassium 3.4 mmol/L (3.5-5.1); Sodium Level 137 mmol/L (136-145); Triglycerides 205 mg/dL; Uric Acid 7.3 mg/dL (3.5-7.2); Very Low Density Lipoprotein 41 mg/dL (5-40)
[2022-06-15 13:50] LABS: Hemoglobin A1c 5.5 % (3.8-5.6)
[2022-06-15 13:53] LABS: Microalbumin:Creatinine Ratio 282.2 mg/g CRE (<30 mg/g CRE)
== END | disposition home or self-care (01) ==
LOC: LAB 12:32
PROVIDERS: PCP Specialist; Referring Provider Specialist; Visit Provider Specialist
DX: D72.828 Other elevated white blood cell count (principal); R53.83 Other fatigue; R89.9 Unspecified abnormal finding in specimens from other organs, systems and tissues; R73.9 Hyperglycemia, unspecified; I12.9 Hypertensive chronic kidney disease with stage 1 through stage 4 chronic kidney disease, or unspecified chronic kidney disease; N18.9 Chronic kidney disease, unspecified; R79.0 Abnormal level of blood mineral
CPT/HCPCS: 36415; 80053; 80061; 82043; 82570; 83036; 83540; 84550; 85025

== ENCOUNTER → 2022-11-18 | Outpatient (CLI) | payer MEDICARE, OTHER, SELFPAY ==
--- NOTE | 2022-11-19 08:43 | STRESSREP ---
Stress Test Report Pharmacologic myocardial perfusion stress test. 66-year-old man with a history of chest pain Resting EKG demonstrates sinus bradycardia with a rate of 57 bpm. Resting blood pressure is 140/82 mmHg. 0.4 mg of regadenoson was infused per usual protocol followed by rapid intravenous saline flush injection. Continuous EKG monitoring was performed. The maximum heart rate was 88 bpm which was 57% of max impacted heart rate the maximum workload was 1 metabolic equivalent. At rest there were no ST or T wave changes noted to suggest ischemia and at peak infusion nonspecific ST changes were noted which did not meet the criteria for ischemia. No clinical angina is noted. The final blood pressure was 138/84 mmHg. Myocardial perfusion protocol. 14.2 mCi of technetium 99m sestamibi was injected at rest. 0.4 mg of regadenoson was infused per usual protocol. At peak infusion 43.9 mCi of technetium 99m sestamibi was injected stress images were obtained stress and rest images were reconstructed and compared in the short axis vertical long and horizontal long axis. Gated images were also obtained. Perfusion SPECT analysis: Review of the stress images demonstrate normal uptake of tracer noted in all areas of the myocardium. The resting images similar demonstrated normal uptake of tracer noted in all areas of the myocardium. No areas of reversibility are noted to suggest ischemia and no previous infarct is noted. Gated SPECT analysis: The gated ejection fraction is 66. Conclusion: Normal pharmacologic myocardial perfusion stress test. Preserved ejection fraction.
== END | disposition home or self-care (01) ==
LOC: CVS 06:05
PROVIDERS: PCP Specialist; Referring Provider Specialist; Visit Provider Specialist
DX: R07.9 Chest pain, unspecified (principal)
CPT/HCPCS: 78452; 93017; A9500; A4216; J2785

== ENCOUNTER → 2022-12-06 | Outpatient (CLI) | payer MEDICARE, OTHER, SELFPAY ==
--- NOTE | 2022-12-06 12:12 | ECHOD_ITS ---
Reason For Study: Chest Pain, Dyspnea Procedure This was a 2D Doppler, Color Flow transthoracic echocardiogram. Exam performed in department. Left Ventricle Normal LV size. Mild concentric left ventricular hypertrophy. Apical false tendon noted. The left ventricular ejection fraction is 65 %. Normal diastology for age. Right Ventricle Normal right ventricle. Atria The left and right atria are normal. Mitral Valve Mild (1+) mitral valve insufficiency. Tricuspid Valve Trivial tricuspid valve insufficiency. Unable to estimate RV systolic pressure due to insufficient tricuspid regurgitant envelope. Aortic Valve Normal aortic valve. Pulmonic Valve The pulmonic valve is not well visualized. Great Vessels Moderately dilated aortic root. Pericardium/Pleural No pericardial effusion. MMode/2D Measurements & Calculations LVIDd: 5.4 cm IVSd: 1.4 cm Ao root diam: 4.0 cm LVIDs: 3.5 cm LVPWd: 0.98 cm LA dimension: 3.8 cm RVDd: 3.4 cm FS: 35.7 % LAV(MOD-bp): 46.7 ml LVAd ap4: 32.1 cm2 SV(MOD-sp4): 63.4 ml LAV(MOD-bp) Indexed: 22.1 ml/m2 LVLd ap4: 8.8 cm LAV(MOD-sp2): 51.3 ml EDV(MOD-sp4): 99.9 ml LAV(MOD-sp4): 38.8 ml EDV(sp4-el): 100.1 ml LVAs ap4: 16.6 cm2 LVLs ap4: 6.8 cm ESV(MOD-sp4): 36.5 ml ESV(sp4-el): 34.2 ml EF(MOD-sp4): 63.5 % EF(sp4-el): 65.8 % SV(sp4-el): 65.9 ml LA A4 area: 16.3 cm2 RA A4 area: 17.2 cm2 TAPSE: 1.9 cm Time Measurements MV dec time: 0.22 sec Doppler Measurements & Calculations MV E max driss: 67.6 cm/sec Lat Peak E' Driss: 10.0 cm/sec Med Peak E' Driss: 10.6 cm/sec MV A max driss: 81.2 cm/sec E/E' lat: 6.8 E/E' med: 6.4 MV E/A: 0.83 MV V2 max: 109.0 cm/sec MV P1/2t max driss: 86.1 cm/sec Ao V2 max: 148.7 cm/sec MV max P.8 mmHg MV P1/2t: 86.9 msec Ao max P.8 mmHg MV V2 mean: 52.4 cm/sec MV dec slope: 290.2 cm/sec2 Ao V2 mean: 94.6 cm/sec MV mean P.3 mmHg Ao mean P.2 mmHg MV V2 VTI: 32.3 cm MVA(P1/2t): 2.5 cm2 Ao V2 VTI: 29.0 cm AV (velocity ratio): 0.83 LV V1 max: 118.7 cm/sec MR max driss: 461.4 cm/sec PA V2 max: 108.2 cm/sec LV V1 max P.6 mmHg MR max P.2 mmHg LV V1 mean P.8 mmHg LV V1 mean: 77.6 cm/sec LV V1 VTI: 24.0 cm ECHO/Echo Complete Interpretation Summary Mild concentric left ventricular hypertrophy. The left ventricular ejection fraction is 65 %. Moderately dilated aortic root. Ordering Physician: Paula Sainz Referring Physician: Paula Sainz Performed By: Joes Ashley RCS
--- NOTE | 2022-12-06 12:12 | US_ITS ---
INDICATION: THYROID NODULE EXAMINATION: Ultrasound US Thyroid (eg thyroid, parathyroid, parotid) TECHNIQUE: Sands scale and color doppler imaging was performed of the thyroid gland. COMPARISON: October 08, 2021. FINDINGS: RIGHT THYROID LOBE: 4.0 x 1.4 x 2.1 cm. Homogeneous echotexture with normal vascularity. [ Nodules 1. Anterior mid thyroid completely cystic 0.5 x 0.4 x 0.2 cm colloid cyst, TI RADS 1, slightly increased in size from prior 2. Inferior thyroid solid 1.0 x 0.9 x 1.1 cm hyperechoic nodule, taller than wide with smooth margins and macrocalcifications, TI RAD 5, not significantly changed in size from prior exam LEFT THYROID LOBE: 4.2 x 1.3 x 2.0 cm. Homogeneous echotexture with normal vascularity. [ Nodules 1. Inferior thyroid completely cystic 0.6 x 0.7 x 0.5 cm colloid cyst, TI RAD 1 2. Posterior mid thyroid 0.8 x 0.6 x 0.5 cm solid heterogeneous hypoechoic nodule wider than tall with smooth margins and no calcifications, TI RAD 4, mildly increased from 0.6 x 0.5 to 0.4 cm on prior ultrasound ISTHMUS: 0.4 cm. No thyroid nodules are present. US/Thyroid IMPRESSION: Multinodular thyroid with dominant right inferior thyroid 1.1 cm TI RAD 5 thyroid nodule, less likely adjacent parathyroid nodule, unchanged in size from October 08, 2021. Based on characteristics would consider fine-needle aspiration for histopathologic diagnosis, otherwise recommend one-year follow-up ultrasound. Subcentimeter TI RAD 4 left thyroid lesion is mildly increased in size from prior exam. Recommend attention to lesion on follow-up recommended above. Multiple benign colloid cysts. Electronically Signed: Doug Newman MD at 8:07 EDT ,
== END | disposition home or self-care (01) ==
LOC: US 12:08
PROVIDERS: PCP Specialist; Referring Provider Specialist; Visit Provider Specialist
DX: R06.00 Dyspnea, unspecified (principal); R60.0 Localized edema; R07.9 Chest pain, unspecified; F17.290 Nicotine dependence, other tobacco product, uncomplicated; D37.05 Neoplasm of uncertain behavior of pharynx; E04.2 Nontoxic multinodular goiter
CPT/HCPCS: 76536; 93306

== ENCOUNTER → 2022-12-16 | Outpatient (CLI) | payer MEDICARE, OTHER, SELFPAY ==
--- NOTE | 2022-12-16 07:37 | MRI_ITS ---
EXAM: MR NECK WITHOUT AND WITH INTRAVENOUS CONTRAST CLINICAL INDICATION: NEOPLASM OF PHARYNX TECHNIQUE: Multiplanar and multisequence MR images of the neck without and with intravenous contrast. CONTRAST: IV 20ML CLARISCAN COMPARISON: No relevant prior studies available. FINDINGS: NASOPHARYNX: Normal. OROPHARYNX: Normal. No significant tonsillar enlargement. No peritonsillar abscess. HYPOPHARYNX: Normal. LARYNX: Normal. Normal epiglottis. RETROPHARYNGEAL SPACE: Normal. SUBMANDIBULAR/PAROTID GLANDS: Normal. Glands are normal in size. THYROID: No thyroid mass identified. BONES/JOINTS: Moderate spondylosis of the cervical spine. VASCULATURE: Normal. LYMPH NODES: Normal. No enlarged lymph nodes. MRI/Orbit Face Neck W/WO Contrast IMPRESSION: No evidence of a neck mass. Electronically Signed: Dre Monreal MD at 12:50 EDT ,
--- NOTE | 2022-12-16 07:45 | RAD_ITS ---
STUDY: X-RAY - ORBITS REASON FOR EXAM: Male, 66 years old. HX METAL TO EYE,, PRE MRI TECHNIQUE: 2 view(s) of the orbits were obtained. COMPARISON: None. FINDINGS: Normal bilateral orbits without a metallic orbital foreign body. Normal visualized facial bones. Normal paranasal sinuses. The soft tissue structures are unremarkable. RAD/Orbits for Foreign Body IMPRESSION: No demonstrated metallic orbital foreign body. The patient is cleared for an MRI examination. Electronically Signed: Vicente Velasquez MD at 8:08 EDT ,
[2022-12-16 08:35] LABS: CREATININE FINGERSTICK 1.7 mg/dL (0.70-1.30)
== END | disposition home or self-care (01) ==
LOC: MRI 07:34
PROVIDERS: PCP Specialist; Referring Provider Specialist; Visit Provider Specialist
DX: Z01.818 Encounter for other preprocedural examination (principal); D37.05 Neoplasm of uncertain behavior of pharynx
CPT/HCPCS: 70030; 70543; A9575

== ENCOUNTER → 2023-02-21 | Outpatient (CLI) | payer MEDICARE, OTHER, SELFPAY ==
--- NOTE | 2023-02-21 10:31 | MRI_ITS ---
EXAM: MR ANGIOGRAPHY <TEMPLATE> WITHOUT AND WITH INTRAVENOUS CONTRAST CLINICAL INDICATION: THORACIC AORTIC ECTASIA TECHNIQUE: Magnetic resonance angiography images of the chest without and with intravenous contrast. CONTRAST: CLARISCAN 22 IV COMPARISON: No relevant prior studies available. FINDINGS: Ascending thoracic aorta measures 3.4 cm in maximum diameter with normal tapering to the descending thoracic aortic diameter of 3.1 cm. Postcontrast images show no evidence of dissection. Origin of the brachiocephalic vessels is normal. Left common carotid artery arises from a common trunk with the right innominate artery. Visualized proximal visceral branches of the abdominal aorta appear normal. MRI/MRA Chest W/ or W/O Contrast IMPRESSION: No evidence of thoracic aortic aneurysm or dissection. Electronically Signed: Dre Monreal MD at 16:26 EST ,
[2023-02-21 11:08] LABS: CREATININE FINGERSTICK < 1.0 mg/dL (0.70-1.30); EGFR FINGERSTICK > 60.0000 mL/min (>60)
== END | disposition home or self-care (01) ==
LOC: MRI 10:23
PROVIDERS: PCP Specialist; Referring Provider Specialist; Visit Provider Specialist
DX: I77.810 Thoracic aortic ectasia (principal)
CPT/HCPCS: 71555; A9575; A4216; C8911

== ENCOUNTER → 2023-05-04 | Outpatient (CLI) | payer MEDICARE, OTHER, SELFPAY ==
--- NOTE | 2023-05-04 14:09 | CT_ITS ---
INDICATION: MULT LUNG NODULES EXAMINATION: CT CHEST WITHOUT CONTRAST - CT Chest W/O Contrast Injection TECHNIQUE: Helically acquired images were obtained of the chest. A radiation dose optimization technique was used for this scan. IV Contrast dosage and agent: None. RADIATION DOSAGE (If Supplied By Facility): CTDIvol = ( 14.32 ) mGy, DLP = ( 662.13 ) mGycm COMPARISON: Prior study dated: FINDINGS: LUNGS, PLEURA AND LARGE AIRWAYS: Persistent 6 x 8 mm noncalcified right upper lobe nodule seen on axial image 79 series 4 unchanged. There is a 4 mm noncalcified nodule in the superior segment of the right lower lobe seen on image 97 series 4 also unchanged. Mild stranding/scarring in the lingula. No focal infiltrate otherwise is seen. The lungs remain hyperinflated. No pleural effusion or thickening. No pneumothorax. THYROID: No thyroid lesions. HEART AND PERICARDIUM: Heart size is normal. No pericardial effusion. CORONARY ARTERIES: Coronary artery calcification is seen. VESSELS: Thoracic aorta is not dilated. MEDIASTINUM AND RAFA: No mediastinal or hilar adenopathy. Esophagus is unremarkable. No hiatal hernia. UPPER ABDOMEN: No acute pathology. BONES: No suspicious lytic or blastic abnormality. CT/Chest without Contrast IMPRESSION: 1. Stable right upper lobe and right lower lobe nodules for which further follow-up exam in one year is recommended. 2. No acute pulmonary infiltrate or pleural effusions. Electronically Signed: Christian Hubbard MD at 15:18 EST ,
[2023-05-04 15:41] LABS: Absolute Lymphocyte Count 2.43 X10^3/uL (0.83-4.51); Absolute Neutrophil Count 7.3 X10^3/uL (2.0-7.7); Basophil# 0.06 X10^3/uL; Basophil% 0.6 % (0-1); Eosinophil# 0.24 X10^3/uL; Eosinophils% 2.2 % (0-5); Hematocrit 45.8 % (40-54); Hemoglobin 14.4 g/dL (13.0-16.5); Lymphocyte # 2.43 X10^3/ul (0.83-4.51); Lymphocyte % 22.6 % (19-41); Mean Corp Hgb Conc 31.4 g/dL (32-36); Mean Corpuscular Hgb 27.5 pg (27.0-32.0); Mean Corpuscular Volume 87.4 fL (80-94); Mean Platelet Vol. 12.1 fl (6.2-12.0); Monocyte# 0.61 X10^3/uL; Monocyte% 5.7 % (0-10); NRBC Flagged by Analyzer 0 % (0-5); Neutrophil # 7.32 X10^3/uL (2.7-7.7); Neutrophil % 68.2 % (47-70); Platelet Count 209 K/mm3 (150-450); RBC Distribution Width CV 13.1 % (11.6-14.6); RBC Distribution Width SD 41.3 fl (35.1-43.9); Red Blood Count 5.24 M/mm3 (4.6-6.2); White Blood Count 10.7 K/mm3 (4.4-11.0)
[2023-05-04 15:45] LABS: Erythrocyte Sedimentation Rate 8 mm/hr (0-20)
[2023-05-04 16:13] LABS: ALB/GLOB Ratio 1.1 RATIO (0.9-2.4); AST(SGOT) 24 U/L (15-37); Alanine Aminotransfer ALT/SGPT 21 U/L (16-61); Albumin, Serum 3.6 g/dL (3.2-5.0); Alkaline Phosphatase 87 U/L (45-117); Anion Gap 4 (5-15); BUN 20 mg/dL (7-18); BUN/Creat Ratio 15.2 RATIO (10-20); Calcium,Total 9.5 mg/dL (8.5-10.1); Chloride 102 mmol/L (98-107); Cholesterol 123 mg/dL (200); Creatinine, Serum 1.32 mg/dL (0.70-1.30); EST Glomerular Filtration Rate 57 mL/min (>60); Est Glom Filt Rate - Afr Amer 70 mL/min (>60); Globulin 3.4 g/dL (2.2-4.2); Glucose 92 mg/dL (74-106); High Density Lipoprotein 38 mg/dL; Magnesium 2.3 mg/dL (1.6-2.6); PSA,Total - Annual Screen 2.62 ng/mL (0.00-4.00); Phosphorus 3.9 mg/dL (2.5-4.9); Potassium 4.2 mmol/L (3.5-5.1); Sodium Level 142 mmol/L (136-145); Triglycerides 173 mg/dL; Uric Acid 5.9 mg/dL (3.5-7.2); Very Low Density Lipoprotein 35 mg/dL (5-40)
[2023-05-04 16:14] LABS: Vitamin D,25 Hydroxy 46.2 ng/mL
[2023-05-04 16:17] LABS: Microalbumin:Creatinine Ratio 276.5 mg/g CRE (<30 mg/g CRE)
--- OUTSIDE RECORDS SUMMARY | 2023-05-04 18:15 | XMS RPT_ITS | CCD ---
Author Name Unknown Address [address] [place] [address] Organization [facility] Care Team Providers Care Sand Worker Name Role Phone TATIANA MENA Unavailable Unavailable Jeff Sainz Primary Care Provide r Jeff Sainz Primary Care Provide r Jeff Sainz MD Primary Care Provider JEFF SAINZ Primary Care Unavailabl e KAVON, JEFF Attending Unavailabl e LARRYSALETTA, JEFF Referring Unavailabl e LASSALETTA, JEFF Primary Care Unavailabl e LASSALETTA, JEFF Attending Unavailabl e LASSALETTA, JEFF Referring Unavailabl e LARRYSALKAYY, JEFF Primary Care Unavailabl e KAVON, JEFF Attending Unavailabl e KAVON, JEFF Referring Unavailabl e LASSALKAYY, JEFF Primary Care Unavailabl e KAVON, JEFF Attending Unavailabl e KAVON, JEFF Primary Care Unavailabl e LASSALKAYY, JEFF Attending Unavailabl e LARRYSALKAYY, JEFF Primary Care Unavailabl e LASSALKAYY, JEFF Attending Unavailabl e KAVON, JEFF Referring Unavailabl e Medications Completed/Discontinued Medications Medication Drug Class(es) Dates Sig (Normalized) Sig (Original) 30 actuat aclidinium bromide 0.4 mg/actuat dry powder inhaler (4 sources) Start: 05-14-2016 TUDORZA PRESSAIR 400 mcg/actuation aepb [id number] 200 actuat albuterol 0.09 mg/actuat metered dose inhaler (4 sources) beta2-Adrenergic Agonist Start: 06-10-2016 PROAIR HFA 90 mcg/actuation inhaler Problems Active Problems Problem Classification Problem Date Documented Date Episodic/Chronic Chronic obstructive pulmonary disease and bronchiectasis (20 sources) Chronic obstructive lung disease; Translations: [Chronic obstructive pulmonary disease, unspecified] Onset: 12-16-2014 2021 Chronic Disorders of lipid metabolism (11 sources) Hypertriglyceridemia ; Translations: [Pure hyperglyceridemia] Onset: 12-16-2014 2021 Chronic Essential hypertension (14 sources) Hypertensive disorder; Translations: [Essential (primary) hypertension] Onset: 12-16-2014 2021 Chronic Nonspecific chest pain (5 sources) Chest pain; Translations: [Chest pain, unspecified] Onset: 11-03-2022 11-03-2022 Episodic Other lower respiratory disease (5 sources) Dyspnea; Translations: [Dyspnea, unspecified] Onset: 11-10-2022 11-10-2022 Episodic Other lower respiratory disease (3 sources) Cough; Translations: [Acute cough] 12-31-2022 Episodic Other lower respiratory disease (1 source) Dyspnea, unspecified; Translations: [Dyspnea, unspecified] Onset: 11-10-2022 Episodic Other lower respiratory disease (2 sources) Wheezing; Translations: [Wheezing] Onset: 11-10-2022 Episodic Other lower respiratory disease (2 sources) Hypoxemia; Translations: [Hypoxemia] Onset: 11-10-2022 Episodic Other lower respiratory disease (1 source) Wheezing; Translations: [Wheezing] 11-10-2022 Episodic Other lower respiratory disease (1 source) Hypoxemia; Translations: [Hypoxemia] 11-10-2022 Episodic Other screening for suspected conditions (not mental disorders or infectious disease) (5 sources) Imaging of genitourinary system abnormal; Translations: [Abnormal radiologic findings on diagnostic imaging of left testicle] Onset: 12-31-2022 12-31-2022 Chronic Other screening for suspected conditions (not mental disorders or infectious disease) (2 sources) Patient encounter status; Translations: [Encounter for screening for malignant neoplasm of colon] Episodic Residual codes; unclassified (5 sources) Localized edema; Translations: [Localized edema] Onset: 11-10-2022 11-10-2022 Episodic Residual codes; unclassified (1 source) Localized edema; Translations: [Localized edema] Onset: 11-10-2022 Episodic Substance-related disorders (11 sources) Smoker; Translations: [Nicotine dependence, unspecified, uncomplicated] Onset: 12-16-2014 2021 Chronic Unclassified (1 source) Acute cough; Translations: [Acute cough] Onset: 12-31-2022 Past or Other Problems Problem Classification Problem Date Documented Da te Episodic/Chronic Other skin disorders (1 source) Localized swelling, mass and lump, right upper limb; Translations: [Localized swelling, mass and lump, right upper limb] Onset: 09-06-2016 Episodic Other skin disorders (4 sources) Mass of hand; Translations: [Localized swelling, mass and lump, right upper limb] Onset: 06-14-2016 06-14-2016 Episodic Residual codes; unclassified (11 sources) Family history of coronary arteriosclerosis; Translations: [Family history of ischemic heart disease and other diseases of the circulatory system] Onset: 12-16-2014 2021 Episodic Residual codes; unclassified (11 sources) Family history of diabetes mellitus; Translations: [Family history of diabetes mellitus] Onset: 12-16-2014 2021 Episodic Unclassified (1 source) Acute cough; Translations: [Acute cough] Onset: 12-31-2022 Results Test Name Value Interpretation Reference Range Facil ity Vital Signs Date Time Vital Sign Value Performing Clinician Dann pandya 06-23-2021 14:12-0400 Diastolic blood pressure 68 mm[Hg] Mila Donald MD Work Phone: [facility] 06-23-2021 14:12-0400 Heart rate 64 /min Mila Donald MD Work Phone: [facility] 06-23-2021 14:12-0400 Respiratory rate 16 /min Mila Donald MD Work Phone: [facility] 06-23-2021 14:12-0400 SaO2% (BldA) [Mass fraction] 96 % Mila Donald MD Work Phone: [facility] 06-23-2021 14:12-0400 Systolic blood pressure 109 mm[Hg] Mila Donald MD Work Phone: [facility] 06-23-2021 14:02-0400 Body temperature 98.1 [degF] Mila Donald MD Work Phone: [facility] 06-23-2021 12:53-0400 Body height 175.3 cm Mila Donald MD Work Phone: [facility] 06-23-2021 12:53-0400 Body weight 90.72 kg Mila Donald MD Work Phone: [facility] Encounters Encounter Date Encounter Type Care Provider Facility Start: 12-31-2022 End: 01-01[facility] Start: 12-31-2022 End: 12-31-2022 Subsequent hospital visit by physician Jeff Sainz MD Work Phone: [facility] Radiology Procedures Date Procedure Procedure Detail Performing Clinician Start: 06-23-2021 Colon ca scrn not hi rsk ind Jessy Dixon PA-C Work Phone: Start: 06-23-2021 Colonoscopy Mila Donald MD Work Phone: Start: 07-01-2016 CONVERTED SURGICAL PATHOLOGY Tatiana Mena Work Phone: Plan of Treatment Date Care Activity Detail Author Start: 11-12-2022 COVID-19 Vaccine ( season) COVID-19 Vaccine ( season) [facility] Start: 11-12-2022 Influenza vaccination Influenza Vaccine (#1) [facility] Start: 06-23-2022 Colonoscopy COLONOSCOPY [facility] Start: 06-23-2022 COLORECTAL CANCER SCREENING COLORECTAL CANCER SCREENING [facility] Start: 11-12-2021 Influenza vaccination INFLUENZA (Season Ended) [facility] Start: 03-14-2021 ADVANCE DIRECTIVE DISCUSSION ADVANCE DIRECTIVE DISCUSSION [facility] Start: 12-23-2020 PNEUMOVAX AGE 65 AND OVER WITH 5YR LOOKBACK (#1) PNEUMOVAX AGE 65 AND OVER WITH 5YR LOOKBACK (#1) [facility] Start: 11-12-2020 Influenza vaccination INFLUENZA (#1) [facility] Start: 11-10-2020 COVID-19 VACCINE (3 - Booster for Pfizer series) COVID-19 VACCINE (3 - Booster for Pfizer series) [facility] Start: 08-05-2020 COVID-19 Vaccine (3 - Booster for Pfizer series) COVID-19 Vaccine (3 - Booster for Pfizer series) [facility] Start: 08-05-2020 COVID-19 Vaccine (3 - Pfizer series) COVID-19 Vaccine (3 - Pfizer series) [facility] Start: 02-17-2020 Pneumococcal Vaccine: 65+ Years (2 - PCV) Pneumococcal Vaccine: 65+ Years (2 - PCV) [facility] Start: 02-17-2020 Pneumococcal Vaccine: 65+ Years (2 of 2 - PCV) Pneumococcal Vaccine: 65+ Years (2 of 2 - PCV) [facility] Start: 11-13-2019 Influenza vaccination INFLUENZA (#1) [facility] Start: 2015 RSV Immunization aged 60 or older (1 - 1-dose 60+ series) RSV Immunization aged 60 or older (1 - 1-dose 60+ series) [facility] Start: 08-19-2015 LIPID SCREEN LIPID SCREEN [facility] Start: 08-17-2013 DIABETES SCREEN DIABETES SCREEN [facility] Start: 12-23-2010 PROSTATE CANCER SCREENING DISCUSSION PROSTATE CANCER SCREENING DISCUSSION [facility] Start: 12-23-2005 SHINGRIX VACCINE (1 of 2) SHINGRIX VACCINE (1 of 2) [facility] Start: 12-23-2005 Tuberculosis screening COLORECTAL CANCER SCREENING,SEE MODIFIER [facility] Start: 12-23-2000 COLOGUARD (FIT-DNA) COLOGUARD (FIT-DNA) [facility] Start: 12-23-2000 Colonoscopy COLONOSCOPY [facility] Start: 12-23-2000 COLORECTAL CANCER SCREENING COLORECTAL CANCER SCREENING [facility] Start: 12-23-[address] COLONOGRAPHY [facility] Start: 12-23-2000 FECAL OCCULT BLOOD FECAL OCCULT BLOOD [facility] Start: 12-23-2000 SIGMOIDOSCOPY SIGMOIDOSCOPY [facility] Start: 12-23-1974 DTaP/Tdap/Td Vaccines (1 - Tdap) DTaP/Tdap/Td Vaccines (1 - Tdap) [facility] Start: 12-23-1974 Urine microalbumin profile DTAP,TDAP,TD (1 - Tdap) [facility] Start: 12-23-1973 Diabetes mellitus screening Diabetes Screening [facility] Start: 12-23-1973 HEPATITIS C SCREENING HEPATITIS C SCREENING [facility] Start: 12-23-1973 Hepatitis C screening Hepatitis C Screening [facility] Start: 12-23-1973 HIV SCREENING HIV SCREENING [facility] Start: 1967 Adult depression screening assessment DEPRESSION SCREENING [facility] Start: 12-23-1960 COVID-19 VACCINE (1) COVID-19 VACCINE (1) [facility] Start: 1955 ABDOMINAL AORTIC ANEURYSM SCREENING ABDOMINAL AORTIC ANEURYSM SCREENING [facility] Start: 1955 Lipid panel Lipid Panel [facility] Start: 1955 Medicare Annual Wellness (AWV) Medicare Annual Wellness (AWV) [facility] Start: 1955 Screening for malignant neoplasm of colon [facility] End: 11-03-2022 ECG 12 lead [facility] Work Phone: Immunizations Immunization Date Immunization Notes Care Provider Fa vivian 03-17-2022 influenza virus vacc ine, unspecified formulation Jeff Sainz MD Work Phone: [facility] Payers Date Payer Category Payer Unknown AARP AARP [id number] 2022-Present [address] [place] [address] Supplement [id number] 2022 Unknown [id number] 2021 Private Health Insurance [facility] AARP SUPPLEMENT [id number] 2021-Present [phone] [address] [place] [address] Indemnity [id number] 2020 Medicare MEDICARE MEDICAR E A AND B [id number] 2020-Present [phone] [address] [address] [place] [address] Medicare [id number] 2020 Medicare MEDICARE MEDICAR E PART A AND B [id number] 2020-Present [address] [place] [address] Medicare [id number] 2020 Medicare [id number] Social History Date Type Detail Facility Start: 06-14-2016 End: 06-28-2016 Tobacco smoking status NHIS Current every day smoker [facility] Start: 06-28-2016 End: 06-23-2021 Alcohol intake Current non-drinker of alcohol (finding) [facility] Start: 1955 Sex Assigned At Not on file [facility] Start: 06-14-2016 Tobacco use and exposure Smoke less tobacco non-user [facility] Start: 06-13-2021 End: 11-10-2022 Exposure to SARS-CoV-2 (event) Not sure [facility] History of tobacco use Cigarette Smoker [facility] Start: 12-18-2014 Alcohol intake Not Asked [facility] Start: 12-18-2014 Alcohol intake [facility] Gender identity Not on file [facility] Clinical Notes 06-03-2021 to 06-23-2021 Manuela Vieyra RN - 06/23/2021 2:29 PM EDTSedation Documentation - Lesa Ferrer LPN - 06/23/2021 1:52 PM EDTSedation Documentation - Lesa Ferrer LPN - 06/23/2021 1:35 PM EDT Note Date & Type Note Facility 06-23-2021 Note HNO ID: [id number] Author: Manuela Vieyra RN Service: ? Author Type: Registered Nurse Type: Nursing Progress Note Filed: 06/23/2021 2:30 PM Note Text: Patient states readiness for discharge. Assisted with dressing Dr Donald at bedside [facility] 06-23-2021 Nurse Note Patient states readiness for discharge. Assisted with dressing Dr Donald at bedside documented in this encounter [facility] 06-23-2021 Miscellaneous Notes Endoclips X 1 applied to sigmoid colon polyp removal site exp. 04/29/23 LOT number [id number] 5 cc of Blackeye tattoo injected into Ascending colon polyp EXP. 10/21/22 LOT# [id number] Endoclips X 1 applied to Ascending colon polyp exp. 04/29/23 LOT [id number] number Endoclips X 1 applied to Ascending colon polyp exp. 04/07/24 LOT number [id number] documented in this encounter [facility] 06-03-2021 Instructions Jessy Dixon PA-C - 06/03/2021 4:00 PM EDT Images from the original note were not included. Bowel Preparation Instructions for: Miralax-Gatorade Preparations IF YOU DO NOT FOLLOW THESE DIRECTIONS, YOUR COLONOSCOPY WILL BE CANCELLED. [place] Instructions: Your bowel must be empty so that your doctor can clearly view your colon. Follow all of the instructions in this handout EXACTLY as they are written. Do NOT eat any solid food the ENTIRE day before your colonoscopy. Buy your bowel preparation at least 5 days before your colonoscopy. Four (4) Dulcolax laxative tablets containing 5mg of bisacodyl each (NOT Dulcolax stool softener) One (1) 8.3oz. bottle Miralax (238 grams) or generic equivalent 2 x 32oz. Bottles of Gatorade (NOT RED) Diabetic Patients: Use G2 (Gatorade 2) TRANSPORTATION on the Day of Your Exam A responsible adult MUST be present with you at Check In prior to your colonoscopy and REMAIN in the endoscopy area until you are discharged. You are NOT ALLOWED to drive, take a taxi or bus, or leave the Endoscopy Center ALONE. If you do not have a responsible tractor sweeper driver (family member or friend) with you to take you home, your exam cannot be done with sedation and will be cancelled. Please bring a list of all of your current medications, including any Jhzb-sir-Zcchixg medications with you. Medications If you take insulin, diabetic medications or blood thinners such as Coumadin (warfarin), Plavix (clopidogrel), Ticlid (ticlopidine hydrochloride), Agrylin (anagrelide), Xarelto (Rivaroxaban), Pradaxa (Dabigatran), Eliquis (Apixaban), and Effient (Prasugrel). You MUST call the doctors who orders those medicines for instructions on altering the dosage before your colonoscopy. All other medications should be taken the day of the exam with a sip of water including ASPIRIN. Five (5) Days Before Your Colonoscopy Do NOT take medicines that stop diarrhea - such as Imodium, Kaopectate, or Pepto Bismol. Do NOT take fiber supplements - such as Metamucil, Citrucel, or Perdiem. Do NOT take products that contain iron - such as multi-vitamins (the label lists what is in the products). Three (3) Days Before Your Colonoscopy Do NOT eat high-fiber foods - such as popcorn, beans, seeds (flax, sunflower, quinoa), multigrain bread, nuts, salad/vegetables, or fresh and dried fruit. 2 Bowel Preparation Instructions for: Miralax-Gatorade Preparations One (1) Day Before Your Colonoscopy Only drink clear liquids the ENTIRE DAY before your colonoscopy. Do NOT eat any solid foods. Drink at least 8 ounces of clear liquids every hour after waking up. The clear liquids you can drink include: Clear Liquid (NO RED LIQUIDS) DO NOT DRINK Gatorade, Pedialyte or Powerade Clear broth or bouillon Coffee or tea (no milk or non-dairy creamer) Carbonated and non-carbonated soft drinks Artis-Aid or other fruit flavored drinks Strained fruit juices (no pulp) Jell-O, popsicles, hard candy Water Alcohol Milk or non-dairy creamers Noodles or vegetables in soup Juice with pulp Liquid you cannot see through Mix 1/2 of Miralax bottle (119 grams) in each 32 ounces of Gatorade bottle until dissolved. Keep cool in the refrigerator. DO NOT ADD ICE. The bowel preparation solution will be consumed in two parts. Part 1 5:00 PM - Evening before your colonoscopy Take 4 Dulcolax tablets. 6 PM - Evening before your colonoscopy Drink 32 oz. of the mixed solution. Drink an 8 oz. glass of bowel preparation every 15 minutes for a total of 4 glasses. Fifteen (15) minutes later, drink an 8 oz. glass of of clear liquids every 15 minutes for a total of 2 glasses. You may continue to drink clear liquids till midnight. Part 2 On the day of your colonoscopy you may drink clear liquids up to (three) 3 hours prior to procedure. 4 1/2 hours before your colonoscopy Take another 32 oz. bottle of mixed solution. Drink an 8 oz. glass of bowel prep every 15 minutes for a total of 4 glasses. Fifteen (15) minutes later, drink an 8 oz. glass of clear liquids every 15 minutes for a total of 2 glasses. You may continue to drink clear liquids up to (three) 3 hours before your exam. 3 02/2019 documented in this encounter [facility] 06-03-2021 Miscellaneous Notes Please create a screening colonoscopy order for [facility] [place], thank you documented in this encounter [facility] Diagnosis Screening for colon cancer Special screening for malignant neoplasms, colon documented in this encounter [facility] note* Diagnosis Chest pain, unspecified [facility] Diagnosis Chronic obstructive pulmonary disease, unspecified (HCC) Localized edema Edema Dyspnea, unspecified [facility] Diagnosis Chronic obstructive pulmonary disease with (acute) exacerbation (HCC) Abnormal radiologic findings on diagnostic imaging of left testicle Acute cough [facility] Diagnosis Chest pain, unspecified- Primary Chest pain, unspecified [facility] Diagnosis Essential (primary) hypertension- Primary Unspecified essential hypertension Chest pain, unspecified documented in this encounter [facility] note* Diagnosis Localized edema- Primary Edema Wheezing Hypoxemia documented in this encounter [facility] note* Diagnosis Chronic obstructive pulmonary disease, unspecified (HCC)- Primary Localized edema Edema Dyspnea, unspecified Chronic obstructive pulmonary disease, unspecified (HCC) Localized edema Edema Dyspnea, unspecified documented in this encounter [facility] note* Diagnosis Chronic obstructive pulmonary disease with (acute) exacerbation (HCC)- Primary Dyspnea, unspecified documented in this encounter [facility] note* Diagnosis Chronic obstructive pulmonary disease with (acute) exacerbation (HCC)- Primary Abnormal radiologic findings on diagnostic imaging of left testicle Acute cough Chronic obstructive pulmonary disease with (acute) exacerbation (HCC) Abnormal radiologic findings on diagnostic imaging of left testicle Acute cough documented in this encounter [facility] for referral (narrative)* Outpatient Procedure (Routine) - Authorized Specialty Diagnoses / Procedures Referred By Ani rajput Referred To Contact [facility] Diagnoses Screening for colon cancer Procedures COLONOSCOPY SCREENING COLONOSCOPY FLX DX W/COLLJ SPEC WHEN Jessy Branch PA-C [address] [place] [address] [address] Referral ID Status Reason Start Date Expiration Date Visits Requested Visits Authorized [id number] Authorized Auto-Generat ed Referral 06/03/2021 06/03/2022 1 1 [facility] for referral (narrative)* Outpatient Procedure (Routine) - Closed Specialty Diagnoses / Procedures Referred By Ani rajput Referred To Contact [facility] Diagnoses Screening for colon cancer Procedures COLONOSCOPY SCREENING COLONOSCOPY FLX DX W/COLLJ SPEC WHEN PFJessy Jose PA-C [address] [place] [address] [address] Referral ID Status Reason Start Date Expiration Date V isits Requested Visits Authorized [id number] Closed Auto-Generate d Referral 06/03/2021 06/03/2022 1 1 [facility] for visit Narrative* Outpatient Procedure (Routine) - Closed Specialty Diagnoses / Procedures Referred By Contac t Referred To Contact [facility] Diagnoses Screening for colon cancer Procedures COLONOSCOPY SCREENING COLONOSCOPY FLX DX W/COLLJ SPEC WHEN PFRMD Jessy Dixon PA-C [address] [place] [address] [facility] [address] [place] [address] Referral ID Status Reason Start Date Expiration Date V isits Requested Visits Authorized [id number] Closed Auto-Generate d Referral 06/03/2021 06/03/2022 1 1 [facility] Summary Purpose Family History No Family History Records FoundNo Family History Records FoundNo Family History Records Found Advance Directives Documents on File Type Date Recorded Patient Assembler Filters Expl anation Advance Directive(s) 06/23/2021 12:10 PM Additional Source Comments (unrecognized sect ion and content) No Status Records FoundNo Status Records FoundNo Status Records Found INFORMATION SOURCE (unrecogn ized section and content) DATE CREATED AUTHOR AUTHOR'S ORGANIZ ATION 06/26/2021 [facility] DATE CREATED AUTHOR AUTHOR'S ORGANIZ ATION 01/05/2023 [facility] Source Comments (unrecognize d section and content) In the event this informatio n is protected by the Federal Confidentiality of Alcohol and Drug Abuse Patient Records regulations: The Federal rules restrict any use of the information to criminally investigate or prosecute any alcohol or drug abuse patient.[facility] the event this information is protected by the Federal Confidentiality of Alcohol and Drug Abuse Patient Records regulations: The Federal rules restrict any use of the information to criminally investigate or prosecute any alcohol or drug abuse patient.[facility] the event this information is protected by the [facility] Confidentiality of Alcohol and Drug Abuse Patient Records regulations: The Federal rules restrict any use of the information to criminally investigate or prosecute any alcohol or drug abuse patient.[facility] the event this information is protected by the Federal Confidentiality of Alcohol and Drug Abuse Patient Records regulations: The Federal rules restrict any use of the information to criminally investigate or prosecute any alcohol or drug abuse patient.[facility] Reason for Visit (unrecogniz ed section and content) Care Teams (unrecognized sec tion and content) Sand Worker Relationship Specialty Start Date End Date Jeff Sainz [address] [place] [address] [address] [place] [address] PCP - General Obstetrics 06/28/16 Sand Worker Relationship Specialty Start Date End Date Jeff Sainz [address] [place] [address] [address] [place] [address] PCP - General Obstetrics 06/28/16 Sand Worker Relationship Specialty Start Date End Date Jeff Sainz MD [address] [place] [address], [address] [place] [address] PCP - General Family Medicine 11/03/22 Sand Worker Relationship Specialty Start Date End Date Jeff Sainz MD [address] [place] [address], [address] [place] [address] PCP - General Family Medicine 11/03/22 Sand Worker Relationship Specialty Start Date End Date Jeff Sainz MD [address] [place] [address], [address] [place] [address] PCP - General Family Medicine 11/03/22 Sand Worker Relationship Specialty Start Date End Date Jeff Sainz MD [address] [place] [address], [address] [place] [address] PCP - General Family Medicine 11/03/22 Sand Worker Relationship Specialty Start Date End Date Jeff Sainz MD [address] [place] [address], [address] [place] [address] PCP - General Family Medicine 11/03/22 Sand Worker Relationship Specialty Start Date End Date Jeff Sainz MD [address] [place] [address], [address] [place] [address] PCP - General Family Medicine 11/03/22 FOR RECORDS PERTAINING TO PATIENTS WHO ARE OR HAVE BEEN ENROLLED IN A CHEMICAL DEPENDENCY/SUBSTANCEABUSE PROGRAM, SOME INFORMATION MAY BE OMITTED. This clinical summary was aggregated from multiple sources. Caution should be exercised in using it in the provision of clinical care. This summary normalizes information from multiple sources, and as a consequence, information in this document may materially change the coding, format and clinical context of patient data. In addition, data may be omitted in some cases. CLINICAL DECISIONS SHOULD BE BASED ON THE PRIMARY CLINICAL RECORDS. [facility] [email or web address] provides no warranty or guarantee of the accuracy or completeness of information in this document.
== END | disposition home or self-care (01) ==
PROVIDERS: PCP Specialist; Referring Provider Internal Medicine Pulmonary Disease; Visit Provider Internal Medicine Pulmonary Disease
DX: R91.8 Other nonspecific abnormal finding of lung field (principal); N18.30 Chronic kidney disease, stage 3 unspecified; I12.9 Hypertensive chronic kidney disease with stage 1 through stage 4 chronic kidney disease, or unspecified chronic kidney disease; E78.00 Pure hypercholesterolemia, unspecified; E55.9 Vitamin D deficiency, unspecified; R53.83 Other fatigue; K92.1 Melena; N40.0 Benign prostatic hyperplasia without lower urinary tract symptoms
CPT/HCPCS: 36415; 71250; 80053; 80061; 82043; 82306; 82570; 83735; 84100; 84153; 84550; 85025; 85652; G0103

== ENCOUNTER 2023-07-14 08:36 | Emergency (ER) | payer MEDICARE, OTHER, SELFPAY ==
[2023-07-14] VITALS (20 sets, daily range): BP systolic 124–211; BP diastolic 62–136; PULSE 57–95; RESP 16–32; TEMP 35–36.1; O2SAT 90–99; BMI 32.3; BMI 15.9
[2023-07-14] MEDS: Etomidate 20 MG/10 ML Vial IV (08:42)
[2023-07-14] MEDS: Rocuronium Bromide 50 MG/5 ML Vial 80 MG IV (08:43)
--- NOTE | 2023-07-14 08:46 | CT_ITS ---
STUDY: CT BRAIN WITHOUT CONTRAST REASON FOR EXAM: Male, 67 years old. Unresponsive RADIATION DOSAGE (If Supplied By Facility): CTDIvol = ( 44.99 ) mGy, DLP = ( 829.85 ) mGycm TECHNIQUE: Transaxial CT imaging of the brain was performed without administration of intravenous contrast material. Individualized dose optimization techniques were used for this CT. COMPARISON: No relevant priors. FINDINGS: Normal soft tissue structures. Normal calvarium. There is mild cerebral atrophy with widening of the extra-axial spaces and ventricular dilatation. There is evidence of a large amount of blood within both the lateral ventricles as well as the third ventricle and the fourth ventricle. There is evidence of a subarachnoid hemorrhage in the posterior left occipital lobe. There is also evidence of intracerebral hematoma measuring 3.5 cm x 3.5 cm involving the left posterior parietal occipital lobe. Normal basal ganglia and thalami. Normal brainstem. Normal cerebellum. Normal visualized paranasal sinuses. CT/Brain/Head without Contrast IMPRESSION: Large amount of the intraventricular blood as well as blood in the subarachnoid space and intracerebral hematoma in the posterior left parietal occipital lobes with surrounding edema measuring 3.5 cm x 3.5 cm. N.B. : The above Results were Read Back by Vicente Velasquez MD to Tyra Alvarez MD, and understanding confirmed on 07/14/2023 09:32:40 (ET). Electronically Signed: Vicente Velasquez MD at 9:34 EDT ,
--- NOTE | 2023-07-14 08:47 | EKG12_ITS ---
Test Reason : UNRESP Blood Pressure : / mmHG Vent. Rate : 069 BPM Atrial Rate : 069 BPM P-R Int : 156 ms QRS Dur : 102 ms QT Int : 452 ms P-R-T Axes : 081 083 079 degrees QTc Int : 484 ms Normal sinus rhythm Prolonged QT Abnormal ECG Confirmed by ERA MIRANDA, TANA ([id number]), desk editor FRANCISCA MARAVILLA ([id number]) on 07/15/2023 10:27:11 AM Referred By: Confirmed By:TANA GIRARD MD
[2023-07-14] MEDS: Propofol 10MG/Ml 1,000 MG/100 ML Bottle 2.9 MG CONT INF (09:04)
[2023-07-14] MEDS: Albuterol 2.5 MG/3 ML VIAL.NEB. INHALATION ×3 (09:04)
[2023-07-14] MEDS: Ipratropium/Albuterol Sulfate 3 ML AMPUL.NEB INHALATION (09:04)
[2023-07-14] MEDS: 0.9% Normal Saline (1000mL) 1,000 ML 150 ML IV (09:05)
[2023-07-14 09:07] LABS: Absolute Lymphocyte Count 4.19 X10^3/uL (0.83-4.51); Absolute Neutrophil Count 15.9 X10^3/uL (2.0-7.7); Basophil# 0.13 X10^3/uL; Basophil% 0.6 % (0-1); Eosinophil# 0.43 X10^3/uL; Hematocrit 47.3 % (40-54); Lymphocyte # 4.19 X10^3/ul (0.83-4.51); Lymphocyte % 19.3 % (19-41); Mean Corp Hgb Conc 31.7 g/dL (32-36); Mean Corpuscular Hgb 26.9 pg (27.0-32.0); Mean Corpuscular Volume 84.8 fL (80-94); Mean Platelet Vol. 11.7 fl (6.2-12.0); Monocyte# 0.77 X10^3/uL; Monocyte% 3.6 % (0-10); NRBC Flagged by Analyzer 0 % (0-5); Neutrophil # 15.89 X10^3/uL (2.7-7.7); Neutrophil % 73.2 % (47-70); Platelet Count 304 K/mm3 (150-450); RBC Distribution Width CV 13.3 % (11.6-14.6); RBC Distribution Width SD 41.1 fl (35.1-43.9); Red Blood Count 5.58 M/mm3 (4.6-6.2); White Blood Count 21.7 K/mm3 (4.4-11.0)
[2023-07-14 09:09] LABS: International Normalized Ratio 0.9; Prothrombin Time (Protime)PT. 11.8 SECONDS (11.7-14.9)
[2023-07-14 09:11] LABS: Partial Thromboplast Time 26.5 Seconds (24.1-36.2)
--- NOTE | 2023-07-14 09:15 | RAD_ITS ---
STUDY: X-RAY CHEST REASON FOR EXAM: Male, 67 years old. ETT TECHNIQUE: Single AP portable view of the chest. COMPARISON: Comparison is made with prior study dated March 16, 2022. FINDINGS: An endotracheal tube is in situ. The tip is at 8.8 cm proximal to the erin. The tip of the orogastric tube is in the body of the stomach. Mild increased markings at the left lung base suggestive of left basilar atelectasis. There is no demonstrated pleural abnormality. Normal size heart. Normal mediastinum and clementine. Normal visualized pulmonary arteries. There is atherosclerotic calcification of the aortic arch with tortuosity. Normal visualized thoracic spine. Normal visualized ribs, clavicles, and shoulders. There is no demonstrated abnormality of the visualized soft tissue structures of the upper abdomen. RAD/Chest 1 View (Portable) IMPRESSION: The tip of the endotracheal tube is at 8.8 cm proximal to the erin. The tip of the orogastric tube is in the body of the stomach. Mild increased markings at the left lung base suggestive of atelectasis. Electronically Signed: Vicente Velasquez MD at 9:57 EDT ,
[2023-07-14 09:18] LABS: AST(SGOT) 31 U/L (15-37); Alanine Aminotransfer ALT/SGPT 18 U/L (16-61); Albumin, Serum 3.7 g/dL (3.2-5.0); Alkaline Phosphatase 93 U/L (45-117); Anion Gap 8 (5-15); BUN 22 mg/dL (7-18); BUN/Creat Ratio 17.1 RATIO (10-20); Bilirubin, Direct 0.14 mg/dL (0.00-0.30); Chloride 100 mmol/L (98-107); Creatinine, Serum 1.29 mg/dL (0.70-1.30); EST Glomerular Filtration Rate 59 mL/min (>60); Est Glom Filt Rate - Afr Amer 71 mL/min (>60); Estimated Creatinine Clearance 38.47 ml/min; Globulin 3.8 g/dL (2.2-4.2); Glucose 229 mg/dL (74-106); Lipase 34 U/L (13-75); Potassium 3.5 mmol/L (3.5-5.1); Protein, Total 7.5 g/dL (6.4-8.2); Sodium Level 139 mmol/L (136-145); Troponin-I HS (w/2H Reflex) 13 pg/mL (3.0-78.0)
--- NOTE | 2023-07-14 09:19 | EDS_ITS ---
HPI History of Present Illness Chief Complaint: Unresponsive Informant: spouse/S.O. and EMS Narrative Narrative: Patient presents via EMS unresponsive. EMS reports they were called this morning after he had passed out in the bathroom. states when she got home from work he was in the bathroom standing over the sink complaining of a headache, nausea, and vomiting. He was cool and sweaty. She states she turned to take the dogs out when she heard him fall to the ground unresponsive. When EMS arrived he had snoring respirations, but after moving him to the ambulance he started to answer questions. On their initial neuroexam they stated he was having trouble moving his right leg. Shortly after they called report patient again became unresponsive with snoring respirations. They started bagging him on transport. On arrival patient is being bagged. He is unresponsive to pain. Pupils are approximately 3 mm bilaterally. No obvious external sign of trauma. [facility] Medical History (Updated 07/14/23 @ 11:[address] Tyra Alvarez MD) COPD (chronic obstructive pulmonary disease) History of basal cell carcinoma (BCC) Hypertension Mass of skin of back On supplemental oxygen therapy Home Medications amlodipine 10 mg tablet 10 mg PO DAILY blood pressure 04/14/18 [History Last Taken 03/14/22 05:00] ascorbic acid (vitamin C) 500 mg capsule 500 mg PO DAILY supplement 04/14/18 [History Last Taken 03/14/22 12:00] aspirin 81 mg chewable tablet 81 mg PO QODAY [employer] 04/14/18 [History Last Taken 03/13/22] cholecalciferol (vitamin D3) 50 mcg (2,000 unit) capsule 2,000 unit PO DAILY vitamin 04/14/18 [History Last Taken 03/14/22 12:00] cyanocobalamin (vitamin B-12) 1,000 mcg capsule 1,000 mcg PO QODAY vitamin 04/14/18 [History Last Taken Unknown] folic acid 1 mg tablet 1 mg PO DAILY supplement 04/14/18 [History Last Taken 03/14/22 12:00] hydrochlorothiazide 25 mg tablet 25 mg PO DAILY blood pressure 04/14/18 [History Last Taken Unknown] potassium chloride 10 mEq tablet,extended release(part/cryst) 10 meq PO DAILY supplement 04/14/18 [History Last Taken 03/13/22 12:00] pyridoxine (vitamin B6) 100 mg tablet 100 mg PO DAILY vitamin 04/14/18 [History Last Taken 03/14/22 12:00] albuterol sulfate 0.63 mg/3 mL solution for nebulization 0.63 mg inhalation BID copd 12/17/19 [History Last Taken 03/14/22 14:00] atorvastatin 10 mg tablet 10 mg PO DAILY cholesterol 12/17/19 [History Last Taken 03/14/22 05:00] benazepril 10 mg tablet 60 mg PO DAILY blood pressure 12/17/19 [History Last Taken 03/14/22 05:00] bupropion HCl 100 mg tablet 100 mg PO BID mood 12/17/19 [History Last Taken Unknown] famotidine 20 mg tablet 20 mg PO DAILY PRN reflux 12/17/19 [History Last Taken 01/01/20] sertraline 50 mg tablet 75 mg PO DAILY mood 12/17/19 [History Last Taken 03/14/22 05:00] fluticasone furoate 200 mcg-vilanterol 25 mcg/dose inhalation powder 1 ea IH DAILY copd 12/25/19 [History Last Taken 03/14/22 12:00] hydralazine 25 mg tablet 25 mg PO TID blood pressure 03/14/22 [History Last Taken 03/14/22 12:00] magnesium 200 mg tablet 400 mg PO DAILY supplement 03/14/22 [History Last Taken 03/14/22 12:00] umeclidinium 62.5 mcg/actuation blister powder for inhalation (Incruse Ellipta) 1 inh inhalation DAILY COPD 03/14/22 [History Last Taken 03/14/22 12:00] amoxicillin 875 mg-potassium clavulanate 125 mg tablet 1 tab PO BID #4 tabs 03/20/22 [Rx Last Taken Unknown] codeine 10 mg-guaifenesin 100 mg/5 mL oral liquid (Guaiatussin AC) 10 ml PO Q6H PRN PRN COUGH #120 mL 03/20/22 [Rx Last Taken Unknown] prednisone 10 mg tablet 10 mg PO DAILY #30 tabs 03/20/22 [Rx Last Taken Unknown] Allergy/AdvReac Type Severity Reaction Status Date / Time No Known Allergies Allergy Verified 07/14/23 10:13 Family History Mother Dementia Alzheimer disease Hypertension Father Prostate cancer Surgical History History of basal cell carcinoma (BCC) excision Hx of hand surgery Hx of left inguinal hernia repair Social History Smoking Status: Current every day smoker tobacco type: cigarettes second hand exposure: Yes alcohol intake: never substance use type: does not use caffeine: Yes what type of physical activity do you participate in: none frequency: does not exercise ROS ROS ED Review of Systems ROS Unobtainable: due to mental status EXAM Physical Exam Const Vital Signs: 07/14/23 08:36 07/14/23 09:18 07/14/23 08:36 Temperature 95.0 F L Temperature Source Temporal Pulse Rate 57 L 67 Respiratory Rate 20 H 18 Respiratory Pattern Blood Pressure 160/131 H 160/131 H Blood Pressure Mean 140 140 Pulse Ox 99 93 Oxygen Delivery Method Ambu-Bag Room Air Mechanical Ventilator Fraction of Inspired Oxygen (FIO2) 07/14/23 09:06 07/14/23 09:30 07/14/23 09:18 Temperature Temperature Source Pulse Rate 71 71 72 Respiratory Rate 16 16 16 Respiratory Pattern Blood Pressure 194/109 H 211/136 H 190/122 H Blood Pressure Mean 137 161 144 Pulse Ox 95 93 92 Oxygen Delivery Method Mechanical Ventilator Fraction of Inspired Oxygen (FIO2) 07/14/23 09:33 07/14/23 09:48 07/14/23 10:00 Temperature Temperature Source Pulse Rate 69 70 73 Respiratory Rate 16 17 Respiratory Pattern Blood Pressure 194/108 H 191/101 H 177/93 H Blood Pressure Mean 136 131 121 Pulse Ox 92 91 90 Oxygen Delivery Method Mechanical Ventilator Mechanical Ventilator Fraction of Inspired Oxygen (FIO2) 07/14/23 10:03 07/14/23 10:24 07/14/23 08:55 Temperature Temperature Source Pulse Rate 95 76 86 Respiratory Rate 25 H 21 H 16 Respiratory Pattern Normal Blood Pressure 177/93 H 140/76 H Blood Pressure Mean 121 97 Pulse Ox 91 90 Oxygen Delivery Method Mechanical Ventilator Mechanical Ventilator Fraction of Inspired Oxygen (FIO2) 07/14/23 08:55 07/14/23 10:30 07/14/23 10:45 Temperature Temperature Source Pulse Rate 75 67 Respiratory Rate 16 16 32 H Respiratory Pattern Blood Pressure 124/70 H 138/80 H Blood Pressure Mean 88 99 Pulse Ox 97 94 Oxygen Delivery Method Mechanical Ventilator Mechanical Ventilator Fraction of Inspired Oxygen (FIO2) 40 07/14/23 11:00 07/14/23 11:15 Temperature Temperature Source Pulse Rate 70 64 Respiratory Rate 20 H 20 H Respiratory Pattern Blood Pressure 138/62 H 128/66 H Blood Pressure Mean 87 86 Pulse Ox 94 94 Oxygen Delivery Method Mechanical Ventilator Mechanical Ventilator Fraction of Inspired Oxygen (FIO2) Positive well nourished and well developed General Appearance ED: well developed HEENT Reports moist mucous membranes Eyes Eyes Narrative: Pupils approximately 3 mm each. Chest Wall inspection of chest normal and palpation of chest normal Resp Resp Narrative: Tight expiratory wheezes bilaterally. Cardio Rate: bradycardia GI non-tender Palpation: soft Extremity normal to inspection Neuro Neuro Narrative: Patient lying supine in the bed. Spontaneous movement of his upper extremities are noted. Patient does not withdrawal to pain. MDM MDM MDM Narrative Medical decision making narrative: Given the patient's diminished mental status, decision was made to intubate on arrival. Patient was given 20 mg of IV etomidate and 80 mg of IV rocuronium. Patient was intubated with a glide scope passing an 8-0 tube through the cords. IV steroids were given along with aerosols. Labwork obtained to evaluate for leukocytosis, anemia, and electrolyte derangement. Chest x-ray obtained to evaluate for acute lung pathology, cardiac size, or mediastinal abnormality. CT scan of the head obtained due to concern for possible bleed. History & Record Review Discussion w/independent historian: EMS personnel, Family and Significant other Lab Data Attestation: I reviewed the patient's lab results. Labs: Laboratory Results - last 24 hr 07/14/23 07/14/23 07/14/23 08:44 09:35 11:00 WBC 21.7 H RBC 5.58 Hgb 15.0 Hct 47.3 MCV 84.8 MCH 26.9 L MCHC 31.7 L RDW Std Deviation 41.1 RDW Coeff of Heather 13.3 Plt Count 304 MPV 11.7 Immature Gran % (Auto) 1.300 H Neut % (Auto) 73.2 H Lymph % (Auto) 19.3 Foard % (Auto) 3.6 Eos % (Auto) 2.0 Baso % (Auto) 0.6 Absolute Neuts (auto) 15.9 H Absolute Lymphs (auto) 4.19 Nucleated RBC % 0 PT 11.8 INR 0.9 APTT 26.5 Sodium 139 Potassium 3.5 Chloride 100 Carbon Dioxide 31.0 Anion Gap 8 BUN 22 H Creatinine 1.29 Estim Creat Clear Calc 38.47 Est GFR (MDRD) Af Amer 71 Est GFR (MDRD) Non-Af 59 L BUN/Creatinine Ratio 17.1 Glucose 229 H Lactic Acid 2.2 H* Calcium 9.0 Total Bilirubin 0.40 Direct Bilirubin 0.14 AST 31 ALT 18 Alkaline Phosphatase 93 Total Creatine Kinase 170 Troponin I High Sens 13 17 B-Natriuretic Peptide 41.7 Total Protein 7.5 Albumin 3.7 Globulin 3.8 Triglycerides 158 Lipase 34 Urine Color Yellow Urine Clarity Clear Urine pH 7.0 Ur Specific [place] 1.010 Urine Protein 100 H Urine Glucose (UA) 100 H Urine Ketones Negative Urine Occult Blood 25 H Urine Nitrite Negative Urine Bilirubin Negative Urine Urobilinogen Normal Ur Leukocyte Esterase Negative Urine RBC 0-5 SEEN Urine WBC 0 SEEN Ur Squamous Epith Cells 0 SEEN Urine Bacteria 0 SEEN Urine Mucus 0 SEEN ABG Data ABG results: ABG 07/14/23 07/14/23 10:08 11:19 Specimen Type ART ART Sample Site R Radial L Radial pH 7.27 L 7.36 Bicarbonate Actual 32.9 H 31.4 H Total CO2 35 33 Base Excess 6 H 6 H O2 Saturation 90 L 94 L O2 % 40.0 40.0 ABG pCO2 71.0 H* 56.1 H ABG pO2 69 L 75 Respiration Rate 16 20 O2 Delivery Device Adult Vent Adult Vent Vent Mode AC AC Tidal Volume 450.0 450.0 POC PEEP 5 5 Crit Call To/Read Back Yes Blood Gas Notified Whom jk Blood Gas Notified Time 10:09:50 Radiography Chest X-Ray - ED: 1 View, Read by ED Physician and - (ET tube in place, but needs to be advanced. No focal infiltrate.) Diagnostic Testing: Clinical Impression(s) from Imaging Studies Brain CT 07/14/23 08:46 IMPRESSION: Large amount of the intraventricular blood as well as blood in the subarachnoid space and intracerebral hematoma in the posterior left parietal occipital lobes with surrounding edema measuring 3.5 cm x 3.5 cm. N.B. : The above Results were Read Back by Vicente Velasquez MD to Tyra Alvarez MD, and understanding confirmed on 07/14/2023 09:32:40 (ET). Electronically Signed: Vicente Velasquez MD at 9:34 EDT , ADDENDUM: 07/14/23 0941 IMPRESSION: Large amount of the intraventricular blood as well as blood in the subarachnoid space and intracerebral hematoma in the posterior left parietal occipital lobes with surrounding edema measuring 3.5 cm x 3.5 cm. N.B. : The above Results were Read Back by Vicente Velasquez MD to Tyra Alvarez MD, and understanding confirmed on 07/14/2023 09:32:40 (ET). Electronically Signed: Vicente Velasquez MD at 9:34 EDT , Chest X-Ray 07/14/23 09:15 IMPRESSION: The tip of the endotracheal tube is at 8.8 cm proximal to the erin. The tip of the orogastric tube is in the body of the stomach. Mild increased markings at the left lung base suggestive of atelectasis. Electronically Signed: Vicente Velasquze MD at 9:57 EDT , EKG Initial EKG: Attestation: I personally reviewed and interpreted this EKG as follows: Interpretation: Sinus Rhythm (Sinus rhythm at 69 bpm. QTc is 484.) Treatment and Re-Evaluation :: When patient was in CT I received a phone call from the line maintenance technician. Patient has evidence of a large intracranial bleed. Patient's was updated immediately. She is calling her children to see where they would like to be transferred to. CBC reveals white count of 21.7 with 73% neutrophils. Hemoglobin is 15.0. Chemistry studies largely unremarkable. Coags normal. LFTs and lipase unremarkable. Troponin is 13. Initial ABG revealed acidosis with elevated pCO2. Vent changes were made by increasing respiratory rate. Repeat ABG is improved. Patient did require 2 doses of hydralazine followed by a Cardene drip. As patient required more sedation we were able to wean off the Cardene drip. Multiple discussions were had with . She called family members and as she was debating whether patient would want anything done. She states he has previously said he did not want to be on life support and did not want to be a vegetable. I did speak with neurosurgery at [facility]. He states based on what I can tell him from the exam and CT, probability for meaningful survival is low, however he cannot see the images himself. He is happy to accept the patient in transfer should they want this. After family has all arrived and been able to discuss case, they do agree they would like him transferred to [facility] where they can speak with the neurosurgeon to get more answers. Plan will be helicopter transport. Critical Care Time Critical Care Time: Yes Critical care time (excluding procedures): 30-74 minutes (50 minutes), Discussing w/Patient &/or Family/Test Equipment Mechanic, Discussing w/Consultants, Arranging Admission or Transfer and Performing Direct Patient Care at Bedside Discharge Plan Triage Chief Complaint: Unresponsive ED Provider: Tyra Alvarez Dx/Rx/DC Orders Clinical Impression: Hemorrhagic stroke Prescriptions: No Action atorvastatin 10 mg tablet 10 mg PO DAILY Patient Comments: TAKE ONE TABLET BY MOUTH EVERY DAY famotidine 20 mg tablet 20 mg PO DAILY PRN (Reason: reflux) Patient Comments: TAKE ONE TABLET BY MOUTH EVERY DAY NEEDED sertraline 50 mg tablet 75 mg PO DAILY albuterol sulfate 0.63 mg/3 mL solution for nebulization 0.63 mg INHALATION BID bupropion HCl 100 mg tablet 100 mg PO BID amlodipine 10 MG tablet 10 mg PO DAILY aspirin 81 MG tablet,chewable 81 mg PO QODAY Patient Comments: stop 7 days preop folic acid 1 MG tablet 1 mg PO DAILY hydrochlorothiazide 25 MG tablet 25 mg PO DAILY pyridoxine (vitamin B6) 100 MG tablet 100 mg PO DAILY potassium chloride 10 MEQ tablet 10 meq PO DAILY cholecalciferol (vitamin D3) 2,000 UNIT capsule 2,000 unit PO DAILY ascorbic acid (vitamin C) 500 MG capsule 500 mg PO DAILY cyanocobalamin (vitamin B-12) 1,000 MCG capsule 1,000 mcg PO QODAY benazepril 10 mg tablet 60 mg PO DAILY fluticasone furoate-vilanterol 1 EACH blister with device 1 ea IH DAILY hydralazine 25 mg tablet 25 mg PO TID Patient Comments: TAKE 1 TABLET BY MOUTH 3 TIMES A DAY magnesium 200 mg Tablet 400 mg PO DAILY Incruse Ellipta 62.5 mcg/actuation Blister With Device 1 inh INHALATION DAILY codeine-guaifenesin [Guaiatussin AC] 10-100 mg/5 mL Liquid 10 ml PO Q6H PRN PRN (Reason: COUGH) Qty: 120 0RF amoxicillin-pot clavulanate 875-125 mg tablet 1 tab PO BID Qty: 4 0RF prednisone 10 mg tablet 10 mg PO DAILY Qty: 30 0RF Rx Instructions: 4 tabs daily for 3 days, then 3 tabs daily for 3 days, then 2 tabs daily for 3 days, then 1 tab daily for 3 days. Primary Care Provider: Paula Sainz Referrals: Paula Sainz MD [Primary Care Provider] - Disposition Disposition: Acute Care Hospital Discharge Location: [facility]
[2023-07-14 09:24] LABS: BNP,B-Type NATRIURETIC PEPTIDE 41.7 pg/mL (0-100); Lactic Acid 2.2 mmol/L (0.4-1.9)
[2023-07-14] MEDS: MethylPREDNISolone 125 MG/2 ML Vial IV (09:25)
[2023-07-14] MEDS: hydrALAZINE 20 MG/ML Vial IV ×2 (09:37→09:48)
[2023-07-14 09:40] LABS: Bacteria 0 SEEN /hpf (None Seen); Mucous, Urine 0 SEEN /hpf (<or=2+); Squamous Epithelial Cells - UA 0 SEEN /hpf (0-5); White Blood Cells 0 SEEN /hpf (0-5)
[2023-07-14 09:42] LABS: Color, Urine Yellow (Yellow); Glucose, Dipstick 100 mg/dl (Normal); Ketone-Dipstick Negative (Negative); Leukocyte Esterase-Dipstick Negative /ul (Negative); Nitrite-Dipstick Negative (Negative); Occult Blood-Urine 25 /ul (Negative); Protein-Dipstick 100 mg/dl (Negative); Urine Bilirubin Dipstick Negative (Negative); Urine Clarity Clear (Clear); Urine Urobilinogen Normal (Normal)
[2023-07-14 09:48] LABS: Red Blood Cells-Urine 0-5 SEEN /hpf (0-5)
[2023-07-14 10:02] LABS: CPK Total, Creatine Kinase 170 U/L (39-308); Triglycerides 158 mg/dL
[2023-07-14] MEDS: Nicardipine HCl-0.9% Sod Chlor 20 MG/200 ML IV.SOLN 50 MG CONT INF (10:07)
[2023-07-14 10:13] LABS: Base Excess 6 mmol/L (-2 to +2); Bicarbonate 32.9 mmol/L (22-26); Blood Gas Specimen Type ART; Mode AC; O2 Delivery Device Adult Vent; PEEP 5; PO2 69 mmHG (75-100); RR 16; SITE R Radial; SO2 90 % (95-99); Time Given 10:09:50; Total Carbon Dioxide 35 mmol/L; pH 7.27 (7.35-7.45)
[2023-07-14] MEDS: Midazolam 2 MG/2 ML Syringe IV (10:18)
--- NOTE | 2023-07-14 10:22 | CPS ---
Per Dr Alvarez advanced tube to 26 at the lip
--- NOTE | 2023-07-14 10:25 | CPS ---
Increased RR to [address] bergman and the ABG
[2023-07-14 11:00] LABS: Reflex Troponin-HS? (from REC) Y
[2023-07-14 11:23] LABS: Base Excess 6 mmol/L (-2 to +2); Bicarbonate 31.4 mmol/L (22-26); Blood Gas Specimen Type ART; Mode AC; O2 Delivery Device Adult Vent; PEEP 5; PO2 75 mmHG (75-100); RR 20; SITE L Radial; SO2 94 % (95-99); Total Carbon Dioxide 33 mmol/L; pCO2 56.1 mmHg (35-45); pH 7.36 (7.35-7.45)
[2023-07-14 11:28] LABS: Troponin-I HS 17 pg/mL (3.0-78.0)
[2023-07-14 12:59] LABS: Reflex Lactate? Y
--- NOTE | 2023-07-14 13:12 | ED.RN ---
THIS RN GAVE REPORT TO [facility] RN
== END 2023-07-14 12:55 | disposition short-term general hospital (02) ==
PROVIDERS: Emergency Provider Emergency Medicine; PCP Specialist; Visit Provider Emergency Medicine
DX: I63.9 Cerebral infarction, unspecified (principal); J44.9 Chronic obstructive pulmonary disease, unspecified; I62.9 Nontraumatic intracranial hemorrhage, unspecified; I60.9 Nontraumatic subarachnoid hemorrhage, unspecified; I61.9 Nontraumatic intracerebral hemorrhage, unspecified; F17.210 Nicotine dependence, cigarettes, uncomplicated; I10 Essential (primary) hypertension
CPT/HCPCS: 31500; 36600; 51702; 70450; 71045; 80048; 80076; 81001; 82550; 82803; 83605; 83690; 83880; 84478; 84484; 85025; 85610; 85730; 87040; 87086; 93005; 94002; 94640; 96361; 96365; 96375; 99252; 99285; J7040; A4216; G0463